=== PATIENT | female | born 1950 | race Caucasian/White ===

== ENCOUNTER → 2017-10-13 12:12 | Outpatient (CLI) | payer MEDICARE, SELFPAY | PROVIDERS: Family Provider Family Medicine; PCP Family Medicine; Visit Provider Family Medicine | DX: R30.0 Dysuria (principal) | CPT/HCPCS: 87086; 87088 ==

== ENCOUNTER 2018-04-10 19:45 | Inpatient (IN) | payer MEDICARE, MEDICAID, SELFPAY ==
[2018-04-10 19:46] VITALS: BP 158/91; PULSE 88; RESP 20; TEMP 36.7; O2SAT 98; BMI 27.0
--- NOTE | 2018-04-10 20:25 | ED.VISSUMM ---
- ER Visit Summary Date of Service: 04/10/18 Chief Complaint: Right facial redness History of Present Illness: The patient is a 67 F presenting with right facial redness. This started this morning. It has been worsening throughout the day. Denies fever. She denies pain. Denies injury. Denies vision changes. Her caregivers were concerned and brought her to the ER. She denies other complaints. Physical Examination: Vitals are stable. Patient is afebrile. Alert no acute distress. HEENT exam diffuse right facial redness and swelling. No area of fluctuance. Neck is supple. Lungs are clear and equal bilaterally. Heart is regular rate and rhythm. Abdomen is soft nontender nondistended. Extremities are unremarkable. Skin is warm and dry. No focal neurologic deficit. Remainder of exam is unremarkable. Emergency Department Course and Treatment: CBC shows a normal white count, hemoglobin 11.0, platelet 112. Glucose 139, BUN 24. Lactic acid 2.1. Blood cultures were sent. She is given Ancef IV. Discussed with the hospitalist for admission. Disposition: Admission Impression: Facial cellulitis This note was generated with [employer] dictation software. It may contain incorrect words, spelling, and punctuation that were not noted in review of the chart prior to signing ED Disposition - Plan for ED Patient: Chief Complaint: Cellulitis Referrals: Everett Ruelas DO [Primary Care Provider] -
[2018-04-10 20:39] LABS: Absolute Lymphocyte Count 1.19 X10^3/ul (0.83-4.51); Absolute Neutrophil Count 6.4 X10^3/uL (2.0-7.7); Basophil# 0.01 X10^3/uL; Basophil% 0.1 % (0-1); Eosinophil# 0.18 X10^3/uL; Eosinophils% 2.1 % (0-5); Hematocrit 32.6 % (37-47); Lymphocyte # 1.19 X10^3/ul (4.0); Lymphocyte % 14.1 % (19-41); Mean Corp Hgb Conc 33.7 g/gl (32-36); Mean Corpuscular Hgb 35.7 pg (27.0-32.0); Mean Corpuscular Volume 105.8 fL (81-99); Mean Platelet Vol. 10.5 fl (6.2-12.0); Monocyte# 0.66 X10^3/uL; Monocyte% 7.8 % (0-10); Neutrophil # 6.36 X10^3/uL (2.7-7.7); Neutrophil % 75.7 % (47-70); Platelet Count 112 K/mm3 (150-450); RBC Distribution Width CV 13.9 % (11.6-14.6); RBC Distribution Width SD 51.8 fl (35.1-43.9); Red Blood Count 3.08 M/mm3 (4.2-5.4); White Blood Count 8.4 K/mm3 (4.4-11.0)
[2018-04-10 20:41] LABS: POSITIVE COUNT NO; POSITIVE DIFFERENTIAL NO; POSITIVE MORPHOLOGY NO
[2018-04-10 20:54] LABS: BUN 24 mg/dL (7-18); Creatinine, Serum 0.81 mg/dL (0.55-1.02); Estimated Creatinine Clearance 59.79 ml/min; Glucose 129 mg/dL (74-106)
[2018-04-10 20:55] LABS: Anion Gap 7 (5-15); BUN/Creat Ratio 29.7 RATIO (10-20); Calcium,Total 8.6 mg/dL (8.5-10.1); Chloride 106 mmol/L (98-107); EST Glomerular Filtration Rate 76 mL/min (>60); Est Glom Filt Rate - Afr Amer 92 mL/min (>60); Potassium 4.6 mmol/L (3.5-5.1); Sodium Level 140 mmol/L (136-145)
[2018-04-10] MEDS: Cefazolin 1 GM/50 ML BAG IV (21:30)
[2018-04-10 21:31] VITALS: PULSE 81; RESP 16; O2SAT 97
[2018-04-10 21:32] LABS: Lactic Acid 2.1 mmol/L (0.4-2.0)
--- NOTE | 2018-04-10 21:37 | HP.PCM_ITS ---
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 tovar yearly came to ER with facial swelling and redness on right side. Patient has 24/7 caregiver and was noticed in this afternoon by her. Patient is verbal, communicative and understand simple things and and feeds herself. patient denies fever chills, headache, shortness of breath, dyspnea, dysphonia, dysphagia or change in vision, diplopia or loss of field of vision. [] In ED, vitals were stable with no fever. Basic labs did not show leukocytosis but lactic acid 2.1. Glucose 129 although she has history of diabetes mellitus. BUN 24 but normal creatinine Past Medical History Past Medical History (Chronic Problems): Chronic Problems (Last Reviewed 11/16/17 @ 10:54 by Doyle Tovar MD) Nonrheumatic mitral valve regurgitation (Chronic) Nonrheumatic aortic (valve) insufficiency (Chronic) Nonrheumatic mitral (valve) prolapse (Chronic) Bundle branch block, left hemiblock (Chronic) LBBB (left bundle branch block) (Chronic) Hyperlipidemia (Chronic) Medical History: Medical History (Last Reviewed 11/16/17 @ 10:54 by Doyle Tovar MD) Nonrheumatic mitral valve regurgitation (Acute) I34.0 Nonrheumatic aortic (valve) insufficiency (Acute) I35.1 Nonrheumatic mitral (valve) prolapse (Chronic) I34.1 Bundle branch block, left hemiblock (Chronic) I44.60 LBBB (left bundle branch block) (Chronic) I44.7 Hyperlipidemia (Chronic) E78.5 Developmental disability F89 Multinodular goiter E04.2 Seizure disorder G40.909 Allergies No Known Allergies Allergy (Unverified 04/10/18 19:49) Home Medications: Ambulatory Orders Medication Instructions Recorded aspirin 81 mg tablet,delayed 81 mg PO QDAY 11/15/17 release metoprolol tartrate 25 mg tablet 12.5 mg PO BID tab 11/15/17 ramipril 2.5 mg tablet 2.5 mg PO QDAY 11/15/17 spironolactone 25 mg tablet 25 mg PO QDAY 11/15/17 phenytoin sodium extended 100 mg 100 mg PO BID cap 11/16/17 capsule sodium chloride 0.65 % nasal spray 2 spray INTRANASAL DAILY 11/16/17 aerosol sodium fluoride 1.1 % dental gel 1 applic DENTAL QHS 11/16/17 Levothyroxine [Synthroid] 150 mcg PO DAILY 04/10/18 Surgical History: Surgical History (Last Reviewed 11/16/17 @ 10:54 by Doyle Tovar MD) History of foot surgery Z98.890 History of thyroidectomy E89.0 Smoking Status: Never smoker - *Family History Paternal Family History: Family History (Last Reviewed 11/16/17 @ 10:54 by Doyle Tovar MD) Father TIA (transient ischemic attack) History Items: No pertinent history Review of Systems Constitutional: Denies: Chills, Fever, Weight Change Eyes: Denies: Blurred vision, Conjunctivae Inflammation, Double vision HEENT: Reports: Nasal Congestion - Chronic. Denies: Head Aches, Sinus Congestion, Sinus Drainage Cardiovascular: Denies: Chest Pain, Chest Pressure, Palpitations Respiratory: Denies: Cough, Shortness of Breath, Shortness of breath at rest, Sputum production Gastrointestinal: Denies: Abdominal Pain, Constipation, Diarrhea, Hematemesis, Hematochezia, Nausea, Melena, Vomiting Genitourinary: Denies: Dysuria, Frequency, Hematuria Musculoskeletal: Denies: Joint Pain, Joint Tenderness Skin: Reports: Rash, Skin Changes. Denies: Wounds Neurological: Denies: Numbness, Tingling, Focal weakness Psychiatric: Denies: Anxiety, Depression, Homicidal Ideations, Suicidal Ideations Hematologic/ Lymphatic: Denies: Easy Bruising, Easy Bleeding VTE Information - Inpt Only VTE Present on Admission: No VTE Mechan Device Prophylaxis: None VTE Pharm Prophylaxis ordered?: Yes Patient Problems: Active and Suspected Problems (Last Reviewed 11/16/17 @ 10:54 by Doyle Tovar MD) facial Erysipelas (Acute) - Physical Exam General: Alert, Oriented x3, Cooperative HEENT: Atraumatic, PERRLA, EOMI, - - Microcephaly with micrognathia Oral: - - No tongue or soft palate or posterior pharyngeal mucus swelling. Neck: Supple, No JVD, Negative Carotid Bruits, - - A small patch of erythema present posteriorly over left side of neck. Small superficial abrasion present on the submitted of erythematous patch. No discharge Lungs: Clear to auscultation, Normal air movement, No rhonchi, No wheeze, No rales Cardiovascular: Regular rate, No murmurs Abdomen: Bowel Sounds Present, Soft, Non Tender Extremities: No edema, Capillary Refill Less than 3 Seconds Skin: Rash Present - erythematous rash present over right side of face involving the right lower lid. Mild induration present with mild tenderness. Musculoskeletal: No Tenderness to Palpation of Joints or Extremities Neurological: Cranial nerves II-XII grossly intact, Deep Tendon Reflexes 2+/4 and Symmetrical, - - Mild no acute Psych/Mental Status: Normal Affect, Appropriate Vital Signs Temp Pulse Resp BP Pulse Ox 98.0 F 88 20 H 158/91 H 98 04/10/18 19:46 04/10/18 19:46 04/10/18 19:46 04/10/18 19:46 04/10/18 19:46 Oxygen Delivery Method Room Air Weight: 157 lb 10.088 oz Body Mass Index (BMI) 27.0 Laboratory Tests Past 24 Hrs 04/10/18 04/10/18 04/10/18 20:20 20:20 20:20 WBC 8.4 RBC 3.08 L Hgb 11.0 L Hct 32.6 L MCV 105.8 H MCH 35.7 H MCHC 33.7 RDW 13.9 RDW Differential 51.8 H Plt Count 112 L MPV 10.5 Immature Gran % (Auto) 0.200 Neut % (Auto) 75.7 H Lymph % (Auto) 14.1 L [place] % (Auto) 7.8 Eos % (Auto) 2.1 Baso % (Auto) 0.1 Absolute Neuts (auto) 6.4 Absolute Lymphs (auto) 1.19 Total Counted Not Reportable Sodium 140 Potassium 4.6 Chloride 106 Carbon Dioxide 27.0 Anion Gap 7 BUN 24 H Creatinine 0.81 Estim Creat Clear Calc 59.79 Est GFR (MDRD) Af Amer 92 Est GFR (MDRD) Non-Af 76 BUN/Creatinine Ratio 29.7 H Glucose 129 H Lactic Acid Pending Calcium 8.6 Assessment/Plan All Active Problems (Last Reviewed 11/16/17 @ 10:54 by Doyle Tovar MD) facial Erysipelas (Acute) The patient is a 67 year old F with 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 tovar yearly came to ER with facial swelling and redness on right side. Patient has 24/7 caregiver and was noticed in this afternoon by her. Patient is verbal, communicative and understand simple things and and feeds herself. patient denies fever chills, headache, shortness of breath, dyspnea, dysphonia, dysphagia or change in vision, diplopia or loss of field of vision. [] In ED, vitals were stable with no fever. Basic labs did not show leukocytosis but lactic acid 2.1. Glucose 129 although she has history of diabetes mellitus. BUN 24 but normal creatinine 1. Severe sepsis, LA 2.1 due to right-sided facial erysipelas, exact precipitating factor unclear, most probably secondary to Streptococcus: Patient is being admitted on regular MedSurg floor. Blood culture x2 ordered by ER physician. Started on IV cefazolin and will continue it. IV clindamycin 600 mg every 8 hourly total 3 dosages ordered. MRSA nasal screen. Follow-up rash its extent clinically. ESR ordered. Mild hyperglycemia, glucose 129: A1c ordered for tomorrow a.m. 2. Developmental disability: Microcephaly with micrognathia associated with seizure disorder: Continue home medication of phenytoin. 3. Cardiac conditions: Mild chronic systolic heart failure, mild mitral valve prolapse with MR, bundle branch block: Patient recently saw Dr. tovar in office in October 2017. Office follow-up note reviewed. Continue metoprolol, ramipril and baby aspirin. Continue spironolactone. Patient had echo in November 2016 which shows mild global left ventricular systolic dysfunction, EF 47%. No regional wall motion abnormality. Mild to moderate eccentric MR, mild eccentric AR. Left atrium mildly enlarged. Normal right atrium. 4. Hypothyroidism with mild chronic pedal edema: Patient is on Synthroid. TSH and free T4 ordered. 5. Hypertension: On low-dose ramipril. 6. DVT prophylaxis: On Lovenox 40 mg subcu daily. This note was generated with [employer] dictation software. Every effort was made to ensure accuracy, however computerized take out waiter mistakes may persist. Laboratory Results 04/10/18 20:20: WBC 8.4, RBC 3.08 L, Hgb 11.0 L, Hct 32.6 L, MCV 105.8 H, MCH 35.7 H, MCHC 33.7, RDW 13.9, RDW Differential 51.8 H, Plt Count 112 L, MPV 10.5, Immature Gran % (Auto) 0.200, Neut % (Auto) 75.7 H, Lymph % (Auto) 14.1 L, [place] % (Auto) 7.8, Eos % (Auto) 2.1, Baso % (Auto) 0.1, Absolute Neuts (auto) 6.4, Absolute Lymphs (auto) 1.19, Total Counted Not Reportable 04/10/18 20:20: Sodium 140, Potassium 4.6, Chloride 106, Carbon Dioxide 27.0, Anion Gap 7, BUN 24 H, Creatinine 0.81, Estim Creat Clear Calc 59.79, Est GFR (MDRD) Af Amer 92, Est GFR (MDRD) Non-Af 76, BUN/Creatinine Ratio 29.7 H, Glucose 129 H, Calcium 8.6 04/10/18 20:20: Lactic Acid 2.1 H Code Visit Inpatient E&M: 68050 Init Hosp L3
[2018-04-10 22:05] VITALS: BMI 27.0; BMI 27.1
--- NOTE | 2018-04-10 22:12 | NURSING ---
Lis from [facility] helped with pt's admit.
[2018-04-10 22:57] VITALS: BP 145/69; PULSE 67; RESP 18; TEMP 36.9; O2SAT 96
[2018-04-10] MEDS: 0.9% Normal Saline 1,000 ML 100 ML IV (23:03)
[2018-04-10] MEDS: Phenytoin Na 100 MG Capsule PO (23:03)
[2018-04-10 23:12] LABS: Erythrocyte Sedimentation Rate 27 mm/hr (0-30)
[2018-04-10 23:13] VITALS: PULSE 67
[2018-04-10] MEDS: Metoprolol Tartrate 25 MG Tablet 12.5 MG PO (23:13)
[2018-04-11 00:32] LABS: Reflex Lactate? Y
[2018-04-11 01:37] LABS: Lactic Acid 1.1 mmol/L (0.4-2.0)
[2018-04-11 03:45] VITALS: BP 120/56; PULSE 79; RESP 16; TEMP 36.3; O2SAT 96
[2018-04-11 05:31] LABS: M R Staph aureus DNA By PCR Negative (Negative); Probe Check PASS; Specimen Processing Control PASS; Staph aureus DNA By PCR NEGATIVE (Negative)
[2018-04-11 05:36] LABS: Absolute Lymphocyte Count 0.78 X10^3/ul (0.83-4.51); Basophil# 0.01 X10^3/uL; Basophil% 0.2 % (0-1); Eosinophil# 0.13 X10^3/uL; Eosinophils% 3.1 % (0-5); Hematocrit 28.7 % (37-47); Hemoglobin 9.4 g/dl (12.0-15.0); Lymphocyte # 0.78 X10^3/ul (4.0); Lymphocyte % 18.4 % (19-41); Mean Corp Hgb Conc 32.8 g/gl (32-36); Mean Corpuscular Hgb 34.6 pg (27.0-32.0); Mean Corpuscular Volume 105.5 fL (81-99); Mean Platelet Vol. 9.7 fl (6.2-12.0); Monocyte# 0.32 X10^3/uL; Monocyte% 7.5 % (0-10); Neutrophil % 70.6 % (47-70); Platelet Count 96 K/mm3 (150-450); RBC Distribution Width CV 13.6 % (11.6-14.6); RBC Distribution Width SD 50.1 fl (35.1-43.9); Red Blood Count 2.72 M/mm3 (4.2-5.4); White Blood Count 4.3 K/mm3 (4.4-11.0)
[2018-04-11] MEDS: Levothyroxine 150 MCG Tablet PO (05:39)
[2018-04-11 06:01] LABS: T4 Free Direct 1.17 ng/dL (0.76-1.46); Thyroid Stim Hormone (TSH) 0.32 uIU/mL (0.358-3.74)
[2018-04-11 06:05] LABS: POSITIVE COUNT NO; POSITIVE DIFFERENTIAL NO; POSITIVE MORPHOLOGY NO
[2018-04-11] MEDS: Cefazolin 1 GM/50 ML BAG IV (06:39)
[2018-04-11 07:51] VITALS: BP 132/69; PULSE 76; RESP 18; TEMP 37; O2SAT 94
[2018-04-11] MEDS: Spironolactone 25 MG Tablet PO (07:58)
[2018-04-11] MEDS: Polyethylene Glycol 3350 17 GM PACKET PO (07:58)
[2018-04-11] MEDS: Sodium Chloride 0.65% 1 SPRAY SPRAY.BTL 2 SPRAY NASAL (07:58)
[2018-04-11] MEDS: Aspirin E.C. 81 MG Tablet PO (07:58)
[2018-04-11] MEDS: Ramipril 2.5 MG Capsule PO (07:58)
[2018-04-11] MEDS: Phenytoin Na 100 MG Capsule PO ×2 (07:58→21:04)
[2018-04-11 08:02] VITALS: PULSE 76
[2018-04-11] MEDS: Metoprolol Tartrate 25 MG Tablet 12.5 MG PO ×2 (08:02→21:04)
[2018-04-11 09:17] LABS: Hemoglobin A1c 4.6 % (4.2-6.3)
[2018-04-11] MEDS: 0.9% Normal Saline 1,000 ML 100 ML IV ×2 (09:43→21:03)
--- NOTE | 2018-04-11 09:48 | PCM.PN.HOSP ---
Patient Problems: Active and Suspected Problems (Last Reviewed 11/16/17 @ 10:54 by Doyle Zuniga MD) facial Erysipelas (Acute) Subjective: Patient seen and examined. She was admitted yesterday with a complaint of right-sided facial swelling, redness and pain. She is being managed for cellulitis of the right face and periorbital area. Patient feels well today and has no complaints. She denies any fever or chills, cough or chest pain grade the 30th of breath and reactive will be completed. 12 point Review systems otherwise negative. According to her swelling is improved slightly. Vitals/I&O's: Vital Signs Temp Pulse Resp BP Pulse Ox 98.6 F 76 18 132/69 H 94 04/11/18 07:51 04/11/18 08:02 04/11/18 07:51 04/11/18 07:51 04/11/18 07:51 Oxygen Delivery Method Room Air Weight: 157 lb 10.088 oz Body Mass Index (BMI) 27.0 Intake and Output for Last 24 Hours 04/09/18 04/10/18 04/11/18 23:59 23:59 23:59 Intake Total 1008 / 1008 Output Total 300 / 300 Balance 708 / 708 General: Alert, Oriented x3, Cooperative, No apparent distress HEENT: Atraumatic, PERRLA, EOMI, Normocephalic, - - has riht periorbital erythematous swelling, and right sided erythematous facial swelling, with mild tenerness and differential warmth. Oral: Moist Mucosa Neck: Supple, No JVD, Negative Carotid Bruits Lungs: Clear to auscultation, Normal air movement Cardiovascular: Regular rate, Regular Rhythm, Normal S1, Normal S2, No murmurs Abdomen: Bowel Sounds Present Extremities: No clubbing, No cyanosis, No edema, Capillary Refill Less than 3 Seconds Skin: No rashes, No breakdown, - - described as under HEENT Musculoskeletal: No Tenderness to Palpation of Joints or Extremities Lymphatic: No Cervical, Supraclavicular, or Inguinal Adenopathy Neurological: Cranial nerves II-XII grossly intact Psych/Mental Status: Normal Affect, Appropriate, Alert and oriented to time, place, person, mood and affect Laboratory Results 04/10/18 20:20: WBC 8.4, RBC 3.08 L, Hgb 11.0 L, Hct 32.6 L, MCV 105.8 H, MCH 35.7 H, MCHC 33.7, RDW 13.9, RDW Differential 51.8 H, Plt Count 112 L, MPV 10.5, Immature Gran % (Auto) 0.200, Neut % (Auto) 75.7 H, Lymph % (Auto) 14.1 L, [place] % (Auto) 7.8, Eos % (Auto) 2.1, Baso % (Auto) 0.1, Absolute Neuts (auto) 6.4, Absolute Lymphs (auto) 1.19, Total Counted Not Reportable 04/10/18 20:20: Sodium 140, Potassium 4.6, Chloride 106, Carbon Dioxide 27.0, Anion Gap 7, BUN 24 H, Creatinine 0.81, Estim Creat Clear Calc 59.79, Est GFR (MDRD) Af Amer 92, Est GFR (MDRD) Non-Af 76, BUN/Creatinine Ratio 29.7 H, Glucose 129 H, Calcium 8.6 04/10/18 20:20: Lactic Acid 2.1 H 04/10/18 20:20: ESR 27 04/11/18 00:49: Lactic Acid 1.1 04/11/18 03:30: MRSA (PCR) Negative 04/11/18 03:30: S.aureus Protein A PCR NEGATIVE, MRSA (PCR) Negative 04/11/18 05:18: WBC 4.3 L, RBC 2.72 L, Hgb 9.4 L, Hct 28.7 L, MCV 105.5 H, MCH 34.6 H, MCHC 32.8, RDW 13.6, RDW Differential 50.1 H, Plt Count 96 L, MPV 9.7, Immature Gran % (Auto) 0.200, Neut % (Auto) 70.6 H, Lymph % (Auto) 18.4 L, [place] % (Auto) 7.5, Eos % (Auto) 3.1, Baso % (Auto) 0.2, Absolute Neuts (auto) 3.0, Absolute Lymphs (auto) 0.78 L, Total Counted Not Reportable 04/11/18 05:18: TSH 0.32 L, Free T4 1.17 04/11/18 05:18: Hemoglobin A1c 4.6 Current Medications Acetaminophen (Tylenol) 650 mg PO Q6H PRN PRN PRN Reason: Mild Pain (scale 0-3)/T>100.7 Al Hydroxide/Mg Hydroxide (Mylanta Ii) 30 ml PO Q6H PRN PRN PRN Reason: Gastric Burning Aspirin (Ecotrin) 81 mg PO DAILYCM [facility] Last Admin: 04/11/18 07:58 Dose: 81 mg Bisacodyl (Dulcolax) 10 mg RECTAL DAILY PRN PRN PRN Reason: Constipation Docusate Sodium (Colace) 200 mg PO BID PRN PRN PRN Reason: Constipation Sodium Chloride () 1,000 mls @ 100 mls/hr IV .Q10H [facility] Last Admin: 04/11/18 09:43 Dose: 100 mls/hr Cefazolin Sodium () 1 gm in 50 mls @ 150 mls/hr IV Q8 [facility] Last Admin: 04/11/18 06:39 Dose: 150 mls/hr Clindamycin Phosphate 600 mg/ (Dextrose) 54 mls @ 100 mls/hr IV Q8 [facility] Stop: 04/11/18 14:33 Last Admin: 04/11/18 05:38 Dose: 100 mls/hr Influenza Virus Vaccine Quadrival (Fluarix/Fluzone) 0.5 ml IM .ONCE ONE Stop: 04/11/18 10:01 Lactobacillus Acidophilus (Acidophilus) 1 tablet PO TID [facility] Last Admin: 04/11/18 06:40 Dose: 1 tablet Levothyroxine Sodium (Synthroid) 150 mcg PO DAILY@0600 [facility] Last Admin: 04/11/18 05:39 Dose: 150 mcg Metoprolol Tartrate (Lopressor (Beta Renetta)) 12.5 mg PO BID [facility] Last Admin: 04/11/18 08:02 Dose: 12.5 mg Morphine Sulfate () 1 - 2 mg IV Q4H PRN PRN PRN Reason: SEVERE PAIN (6-10/10) Ondansetron HCl (Zofran) 4 mg IV Q6H PRN PRN PRN Reason: Nausea Oxycodone HCl (Oxyir) 5 mg PO Q4H PRN PRN PRN Reason: Moderate Pain (pain scale 4-5) Phenytoin Sodium (Dilantin) 100 mg PO BID [facility] Last Admin: 04/11/18 07:58 Dose: 100 mg Polyethylene Glycol (Miralax) 17 gm PO DAILY [facility] Last Admin: 04/11/18 07:58 Dose: 17 gm Ramipril (Altace) 2.5 mg PO DAILY [facility] Last Admin: 04/11/18 07:58 Dose: 2.5 mg Sodium Chloride ([place] Nasal [place]) 2 spray NASAL DAILY [facility] Last Admin: 04/11/18 07:58 Dose: 2 spray Sodium Chloride () 5 - 30 ml IV UD PRN PRN Reason: SALINE FLUSH Spironolactone (Aldactone) 25 mg PO DAILY [facility] Last Admin: 04/11/18 07:58 Dose: 25 mg Zolpidem Tartrate (Ambien (Generic)) 5 mg PO QHS PRN PRN PRN Reason: INSOMNIA Medical Necessity - Tobacco Use Smoking Status: Never smoker Assessment/Plan All Active Problems (Last Reviewed 11/16/17 @ 10:54 by Doyle Zuniga MD) facial Erysipelas (Acute) 1. Right facial and periorbital cellulitis had SIRS criteria 1/4 on admissoin (resp rate of 20); otherwise she still has erythematous swelling and tenderness over right and right face. Mild frontal wound. Precipitating factor is unclear. She does have poor dentition so this may have contributed to it. Blood cultures pending. On IV clindamycin and cefazolin. will dc cefazolin and continue IV clindamycin as it covers MRSA and MSSA also has no leucocytosis adjust as per blood cultures and sensitivities consult ID 2. Mildl hyperglycemia: resolved. A1C s 4.6. Will monitor 3/ Microcephaly with MRDD: stable. 4. Seizure disorder: on phenytoin 5. Chronic systolic heart failure: EF of 47%. On metoprolol, ramipril and baby aspirin as well as spironolactone. 6/ Hypothyroidism: TSH was 0.32 on dmission; free T4 is 1.17. Is therefore more of a subclinical hypothyroidism picture. Continue synthroid 7. Hypertension: controlled for age. On ramipril, metoprolol and spironolactone 8. History of mitral valve prolapse: stable DVT prophylaxis: lovenox Code Visit Inpatient E&M: 02307 [facility] Hosp L3
--- NOTE | 2018-04-11 09:52 | PN_ITS ---
Patient Problems: Active and Suspected Problems (Last Reviewed 11/16/17 @ 10:54 by Doyle Zuniga MD) facial Erysipelas (Acute) Subjective: Patient seen and examined. She was admitted yesterday with a complaint of right-sided facial swelling, redness and pain. She is being managed for cellulitis of the right face and periorbital area. Patient feels well today and has no complaints. She denies any fever or chills, cough or chest pain grade the 30th of breath and reactive will be completed. 12 point Review systems otherwise negative. According to her swelling is improved slightly. Vitals/I&O's: Vital Signs Temp Pulse Resp BP Pulse Ox 98.6 F 76 18 132/69 H 94 04/11/18 07:51 04/11/18 08:02 04/11/18 07:51 04/11/18 07:51 04/11/18 07:51 Oxygen Delivery Method Room Air Weight: 157 lb 10.088 oz Body Mass Index (BMI) 27.0 Intake and Output for Last 24 Hours 04/09/18 04/10/18 04/11/18 23:59 23:59 23:59 Intake Total 1008 / 1008 Output Total 300 / 300 Balance 708 / 708 General: Alert, Oriented x3, Cooperative, No apparent distress HEENT: Atraumatic, PERRLA, EOMI, Normocephalic, - - has riht periorbital erythematous swelling, and right sided erythematous facial swelling, with mild tenerness and differential warmth. Oral: Moist Mucosa Neck: Supple, No JVD, Negative Carotid Bruits Lungs: Clear to auscultation, Normal air movement Cardiovascular: Regular rate, Regular Rhythm, Normal S1, Normal S2, No murmurs Abdomen: Bowel Sounds Present Extremities: No clubbing, No cyanosis, No edema, Capillary Refill Less than 3 Seconds Skin: No rashes, No breakdown, - - described as under HEENT Musculoskeletal: No Tenderness to Palpation of Joints or Extremities Lymphatic: No Cervical, Supraclavicular, or Inguinal Adenopathy Neurological: Cranial nerves II-XII grossly intact Psych/Mental Status: Normal Affect, Appropriate, Alert and oriented to time, place, person, mood and affect Laboratory Results 04/10/18 20:20: WBC 8.4, RBC 3.08 L, Hgb 11.0 L, Hct 32.6 L, MCV 105.8 H, MCH 35.7 H, MCHC 33.7, RDW 13.9, RDW Differential 51.8 H, Plt Count 112 L, MPV 10.5, Immature Gran % (Auto) 0.200, Neut % (Auto) 75.7 H, Lymph % (Auto) 14.1 L, [place] % (Auto) 7.8, Eos % (Auto) 2.1, Baso % (Auto) 0.1, Absolute Neuts (auto) 6.4, Absolute Lymphs (auto) 1.19, Total Counted Not Reportable 04/10/18 20:20: Sodium 140, Potassium 4.6, Chloride 106, Carbon Dioxide 27.0, Anion Gap 7, BUN 24 H, Creatinine 0.81, Estim Creat Clear Calc 59.79, Est GFR (MDRD) Af Amer 92, Est GFR (MDRD) Non-Af 76, BUN/Creatinine Ratio 29.7 H, Glucose 129 H, Calcium 8.6 04/10/18 20:20: Lactic Acid 2.1 H 04/10/18 20:20: ESR 27 04/11/18 00:49: Lactic Acid 1.1 04/11/18 03:30: MRSA (PCR) Negative 04/11/18 03:30: S.aureus Protein A PCR NEGATIVE, MRSA (PCR) Negative 04/11/18 05:18: WBC 4.3 L, RBC 2.72 L, Hgb 9.4 L, Hct 28.7 L, MCV 105.5 H, MCH 34.6 H, MCHC 32.8, RDW 13.6, RDW Differential 50.1 H, Plt Count 96 L, MPV 9.7, Immature Gran % (Auto) 0.200, Neut % (Auto) 70.6 H, Lymph % (Auto) 18.4 L, [place] % (Auto) 7.5, Eos % (Auto) 3.1, Baso % (Auto) 0.2, Absolute Neuts (auto) 3.0, Absolute Lymphs (auto) 0.78 L, Total Counted Not Reportable 04/11/18 05:18: TSH 0.32 L, Free T4 1.17 04/11/18 05:18: Hemoglobin A1c 4.6 Current Medications Acetaminophen (Tylenol) 650 mg PO Q6H PRN PRN PRN Reason: Mild Pain (scale 0-3)/T>100.7 Al Hydroxide/Mg Hydroxide (Mylanta Ii) 30 ml PO Q6H PRN PRN PRN Reason: Gastric Burning Aspirin (Ecotrin) 81 mg PO DAILYCM [facility] Last Admin: 04/11/18 07:58 Dose: 81 mg Bisacodyl (Dulcolax) 10 mg RECTAL DAILY PRN PRN PRN Reason: Constipation Docusate Sodium (Colace) 200 mg PO BID PRN PRN PRN Reason: Constipation Sodium Chloride () 1,000 mls @ 100 mls/hr IV .Q10H [facility] Last Admin: 04/11/18 09:43 Dose: 100 mls/hr Cefazolin Sodium () 1 gm in 50 mls @ 150 mls/hr IV Q8 [facility] Last Admin: 04/11/18 06:39 Dose: 150 mls/hr Clindamycin Phosphate 600 mg/ (Dextrose) 54 mls @ 100 mls/hr IV Q8 [facility] Stop: 04/11/18 14:33 Last Admin: 04/11/18 05:38 Dose: 100 mls/hr Influenza Virus Vaccine Quadrival (Fluarix/Fluzone) 0.5 ml IM .ONCE ONE Stop: 04/11/18 10:01 Lactobacillus Acidophilus (Acidophilus) 1 tablet PO TID [facility] Last Admin: 04/11/18 06:40 Dose: 1 tablet Levothyroxine Sodium (Synthroid) 150 mcg PO DAILY@0600 [facility] Last Admin: 04/11/18 05:39 Dose: 150 mcg Metoprolol Tartrate (Lopressor (Beta Renetta)) 12.5 mg PO BID [facility] Last Admin: 04/11/18 08:02 Dose: 12.5 mg Morphine Sulfate () 1 - 2 mg IV Q4H PRN PRN PRN Reason: SEVERE PAIN (6-10/10) Ondansetron HCl (Zofran) 4 mg IV Q6H PRN PRN PRN Reason: Nausea Oxycodone HCl (Oxyir) 5 mg PO Q4H PRN PRN PRN Reason: Moderate Pain (pain scale 4-5) Phenytoin Sodium (Dilantin) 100 mg PO BID [facility] Last Admin: 04/11/18 07:58 Dose: 100 mg Polyethylene Glycol (Miralax) 17 gm PO DAILY [facility] Last Admin: 04/11/18 07:58 Dose: 17 gm Ramipril (Altace) 2.5 mg PO DAILY [facility] Last Admin: 04/11/18 07:58 Dose: 2.5 mg Sodium Chloride (Erhard Nasal [place]) 2 spray NASAL DAILY [facility] Last Admin: 04/11/18 07:58 Dose: 2 spray Sodium Chloride () 5 - 30 ml IV UD PRN PRN Reason: SALINE FLUSH Spironolactone (Aldactone) 25 mg PO DAILY [facility] Last Admin: 04/11/18 07:58 Dose: 25 mg Zolpidem Tartrate (Ambien (Generic)) 5 mg PO QHS PRN PRN PRN Reason: INSOMNIA Medical Necessity - Tobacco Use Smoking Status: Never smoker Assessment/Plan All Active Problems (Last Reviewed 11/16/17 @ 10:54 by Doyle Zuniga MD) facial Erysipelas (Acute) 1. Right facial and periorbital cellulitis * had SIRS criteria 1/4 on admissoin (resp rate of 20); otherwise she * still has erythematous swelling and tenderness over right and right face. Mild frontal wound. * Precipitating factor is unclear. She does have poor dentition so this may have contributed to it. * Blood cultures pending. On IV clindamycin and cefazolin. will dc cefazolin and continue IV clindamycin as it covers MRSA and MSSA also * has no leucocytosis * adjust as per blood cultures and sensitivities * consult ID * 2. Mildl hyperglycemia: resolved. A1C s 4.6. Will monitor 3/ Microcephaly with MRDD: stable. 4. Seizure disorder: on phenytoin 5. Chronic systolic heart failure: EF of 47%. On metoprolol, ramipril and baby aspirin as well as spironolactone. 6/ Hypothyroidism: TSH was 0.32 on dmission; free T4 is 1.17. Is therefore more of a subclinical hypothyroidism picture. Continue synthroid 7. Hypertension: controlled for age. On ramipril, metoprolol and spironolactone 8. History of mitral valve prolapse: stable DVT prophylaxis: lovenox Code Visit Inpatient E&M: 63186 Subs Hosp L3
--- NOTE | 2018-04-11 13:07 | CT_ITS ---
STUDY: CT PARANASAL SINUSES WITH CONTRAST REASON FOR EXAM: Female, 67 years old. Facial swelling. Right-sided cellulitis. RADIATION DOSAGE (If Supplied By Facility): CTDIvol = ( 29.38 ) mGy, DLP = ( 598.88 ) mGycm TECHNIQUE: The patient was scanned in a multi-detector CT scanner. High resolution transaxial imaging was performed following the intravenous administration of 75 ml of Isovue 370 contrast material. Sagittal and coronal images were reconstructed. Individualized dose optimization techniques were used for this CT. COMPARISON: None. FINDINGS: FRONTAL SINUSES: Normal development and aeration of the bilateral frontal sinuses without mucosal inflammatory disease. ETHMOIDAL SINUSES: Mucosal thickening of the ethmoid sinuses bilaterally. MAXILLARY SINUSES: Nodular mucosal thickening of both maxillary sinuses. SPHENOIDAL SINUSES: Mild degree of mucosal thickening of the sphenoid sinus. OMU: There is compromise of the ostiomeatal, bilaterally due to mucosal hypertrophy. MIDDLE TURBINATES: Normal bilateral middle turbinates without a cecy bullosa or paradoxical curvature. INFERIOR TURBINATES: Marked degree of hypertrophy of the right inferior turbinate. Moderate degree of thickening of the right middle turbinate. Polyposis should be ruled out. NASAL SEPTUM: Nasal septal deviation towards the left side of the midline. Normal anterior cranial fossa, dany homer and cribriform plate. Normal bilateral orbital contents. Normal nasopharynx without adenoidal pad hypertrophy, or a posterior nasopharyngeal retention cyst. There is evidence of a skin thickening of the right facial region with increased markings in the underlying subcutaneous fat. This is worse in the right periorbital region. This is suggestive of cellulitis. No focal abscess or cavitary lesion is seen. CT/Sinus/Facial Bone WITH Contras IMPRESSION: Sinusitis involving the ethmoid sinuses, maxillary sinus and sphenoid sinuses. Marked hypertrophy of the inferior turbinate of the right nasal fossa and moderate hypertrophy of the middle turbinate in the right nasal fossa. Skin thickening and soft tissue swelling overlying the right maxillary region worse overlying the right orbital region although no focal abscess collection is seen. Electronically Signed: Tim Jo MD at 14:49 EST Tel [phone], Service support ,
--- NOTE | 2018-04-11 13:13 | CON.PCM_ITS ---
Problem List (1) facial Erysipelas Status: Acute Reason for Consult: cellulitis Consulted by: Dr. Martinez History of Present Illness: The patient is a 67 year old F with microcephaly who presented from [facility] 04/10 with one day h/o R face swelling, redness, and clear/honey colored drainage. Denies pain, denies fever, no recent abx. Has prior h/o erysipelas. Came to ED, bcx sent, started on cefazolin and clinda. Denies any eye pain or vision changes. Full ROS neg except as noted above. Family at bedside provided additional history. - Medical History Past Medical History (Chronic Problems): Chronic Problems (Last Reviewed 11/16/17 @ 10:54 by Doyle Zuniga MD) Nonrheumatic mitral valve regurgitation (Chronic) Nonrheumatic aortic (valve) insufficiency (Chronic) Nonrheumatic mitral (valve) prolapse (Chronic) Bundle branch block, left hemiblock (Chronic) LBBB (left bundle branch block) (Chronic) Hyperlipidemia (Chronic) Allergies/Adverse Reactions: Allergies No Known Allergies Allergy (Unverified 04/10/18 19:49) Home Medications: Ambulatory Orders Medication Instructions Recorded aspirin 81 mg tablet,delayed 81 mg PO QDAY 11/15/17 release metoprolol tartrate 25 mg tablet 12.5 mg PO BID tab 11/15/17 ramipril 2.5 mg tablet 2.5 mg PO QDAY 11/15/17 spironolactone 25 mg tablet 25 mg PO QDAY 11/15/17 phenytoin sodium extended 100 mg 100 mg PO BID cap 11/16/17 capsule sodium chloride 0.65 % nasal spray 2 spray INTRANASAL DAILY 11/16/17 aerosol sodium fluoride 1.1 % dental gel 1 applic DENTAL QHS 11/16/17 Levothyroxine [Synthroid] 150 mcg PO DAILY 04/10/18 - Social History SMOKING STATUS:: Never smoker Vital Signs Temp Pulse Resp BP Pulse Ox 98.6 F 76 18 132/69 H 94 04/11/18 07:51 04/11/18 08:02 04/11/18 07:51 04/11/18 07:51 04/11/18 07:51 Oxygen Delivery Method Room Air Weight: 71.5 kg Body Mass Index (BMI) 27.0 Laboratory Tests Past 24 Hrs 1104/10/18 04/10/18 20:20 20:20 20:20 WBC 8.4 RBC 3.08 L Hgb 11.0 L Hct 32.6 L MCV 105.8 H MCH 35.7 H MCHC 33.7 RDW 13.9 RDW Differential 51.8 H Plt Count 112 L MPV 10.5 Immature Gran % (Auto) 0.200 Neut % (Auto) 75.7 H Lymph % (Auto) 14.1 L [place] % (Auto) 7.8 Eos % (Auto) 2.1 Baso % (Auto) 0.1 Absolute Neuts (auto) 6.4 Absolute Lymphs (auto) 1.19 Total Counted Not Reportable ESR Sodium 140 Potassium 4.6 Chloride 106 Carbon Dioxide 27.0 Anion Gap 7 BUN 24 H Creatinine 0.81 Estim Creat Clear Calc 59.79 Est GFR (MDRD) Af Amer 92 Est GFR (MDRD) Non-Af 76 BUN/Creatinine Ratio 29.7 H Glucose 129 H Hemoglobin A1c Lactic Acid 2.1 H Calcium 8.6 TSH Free T4 S.aureus Protein A PCR MRSA (PCR) 04/10/18 04/11/18 04/11/18 20:20 00:49 03:30 WBC RBC Hgb Hct MCV MCH MCHC RDW RDW Differential Plt Count MPV Immature Gran % (Auto) Neut % (Auto) Lymph % (Auto) [place] % (Auto) Eos % (Auto) Baso % (Auto) Absolute Neuts (auto) Absolute Lymphs (auto) Total Counted ESR 27 Sodium Potassium Chloride Carbon Dioxide Anion Gap BUN Creatinine Estim Creat Clear Calc Est GFR (MDRD) Af Amer Est GFR (MDRD) Non-Af BUN/Creatinine Ratio Glucose Hemoglobin A1c Lactic Acid 1.1 Calcium TSH Free T4 S.aureus Protein A PCR MRSA (PCR) Negative 04/11/18 04/11/18 04/11/18 03:30 05:18 05:18 WBC 4.3 L RBC 2.72 L Hgb 9.4 L Hct 28.7 L MCV 105.5 H MCH 34.6 H MCHC 32.8 RDW 13.6 RDW Differential 50.1 H Plt Count 96 L MPV 9.7 Immature Gran % (Auto) 0.200 Neut % (Auto) 70.6 H Lymph % (Auto) 18.4 L [place] % (Auto) 7.5 Eos % (Auto) 3.1 Baso % (Auto) 0.2 Absolute Neuts (auto) 3.0 Absolute Lymphs (auto) 0.78 L Total Counted Not Reportable ESR Sodium Potassium Chloride Carbon Dioxide Anion Gap BUN Creatinine Estim Creat Clear Calc Est GFR (MDRD) Af Amer Est GFR (MDRD) Non-Af BUN/Creatinine Ratio Glucose Hemoglobin A1c Lactic Acid Calcium TSH 0.32 L Free T4 1.17 S.aureus Protein A PCR NEGATIVE MRSA (PCR) Negative 04/11/18 05:18 WBC RBC Hgb Hct MCV MCH MCHC RDW RDW Differential Plt Count MPV Immature Gran % (Auto) Neut % (Auto) Lymph % (Auto) [place] % (Auto) Eos % (Auto) Baso % (Auto) Absolute Neuts (auto) Absolute Lymphs (auto) Total Counted ESR Sodium Potassium Chloride Carbon Dioxide Anion Gap BUN Creatinine Estim Creat Clear Calc Est GFR (MDRD) Af Amer Est GFR (MDRD) Non-Af BUN/Creatinine Ratio Glucose Hemoglobin A1c 4.6 Lactic Acid Calcium TSH Free T4 S.aureus Protein A PCR MRSA (PCR) - Other Studies Radiology: [] reviewed Other Studies: [] Route of nutrition/ use of supplements: [] Nutritional Intake: [] IV Site: [] Tolbert Catheter: [] - Physical Exam General: Alert, Cooperative, No apparent distress HEENT: Atraumatic, PERRLA, EOMI Neck: Supple Lungs: Clear to auscultation, Normal air movement Cardiovascular: Regular rate, Regular Rhythm Abdomen: Soft, Non Tender, Non-Distended Extremities: No edema Skin: - - R face with diffuse swelling, redness, and warmth extending from R periorbital region to neck. Some central honey colored crusting and drainage. IV Site: Peripheral, without redness Musculoskeletal: No Tenderness to Palpation of Joints or Extremities Neurological: Cranial nerves II-XII grossly intact - Assessment/Plan Antibiotics: [] Assessment/Plan: [] Active and Suspected Problems (Last Reviewed 11/16/17 @ 10:54 by Doyle Zuniga MD) facial Erysipelas (Acute) R sided. No pain with eye movement. No fever, normal wbc. Staph aureus pcr neg. On iv clinda. Will order CT of face to look for abscess or orbital involvement. Cont clinda for now. Will follow, thank you.
[2018-04-11 14:30] VITALS: BP 140/68; PULSE 76; RESP 18; TEMP 36.6; O2SAT 96
--- NOTE | 2018-04-11 15:56 | CASEMGMT ---
Social Work Note Pt is being listed as being from skilled nursing. BOOKER met with pt. Pt's caregiver Lis present in room. Lis confirms that pt is from [facility] and pt will return there at discharge. Lis states that once pt is medically cleared either she or pt's other caregiver Tyesha will be able to transport pt. BOOKER placed a call to pt's guardian Alex who also confirms that pt is from [facility] and pt will return there at discharge. Plan: Return to [facility] once medically cleared Dulce Starr [employer], [employer]EV[employer]IAL INSPECTOR
[2018-04-11 20:11] VITALS: BP 131/62; PULSE 75; RESP 17; TEMP 36.9; O2SAT 98
[2018-04-11 21:04] VITALS: BP 188/71; PULSE 71
[2018-04-12 02:31] VITALS: BP 153/83; PULSE 69; RESP 17; TEMP 36.6; O2SAT 98
[2018-04-12] MEDS: Levothyroxine 150 MCG Tablet PO (05:17)
[2018-04-12 05:52] LABS: Absolute Lymphocyte Count 0.82 X10^3/ul (0.83-4.51); Absolute Neutrophil Count 2.4 X10^3/uL (2.0-7.7); Eosinophil# 0.22 X10^3/uL; Hematocrit 29.3 % (37-47); Hemoglobin 9.7 g/dl (12.0-15.0); Lymphocyte # 0.82 X10^3/ul (4.0); Lymphocyte % 22.3 % (19-41); Mean Corp Hgb Conc 33.1 g/gl (32-36); Mean Corpuscular Hgb 34.9 pg (27.0-32.0); Mean Corpuscular Volume 105.4 fL (81-99); Monocyte# 0.28 X10^3/uL; Monocyte% 7.6 % (0-10); Neutrophil # 2.35 X10^3/uL (2.7-7.7); Neutrophil % 63.8 % (47-70); Platelet Count 93 K/mm3 (150-450); RBC Distribution Width CV 13.8 % (11.6-14.6); RBC Distribution Width SD 51.4 fl (35.1-43.9); Red Blood Count 2.78 M/mm3 (4.2-5.4); White Blood Count 3.7 K/mm3 (4.4-11.0)
[2018-04-12 05:54] LABS: POSITIVE COUNT NO; POSITIVE DIFFERENTIAL NO; POSITIVE MORPHOLOGY NO
[2018-04-12 06:04] LABS: Anion Gap 9 (5-15); BUN 15 mg/dL (7-18); BUN/Creat Ratio 28.3 RATIO (10-20); Calcium,Total 8.4 mg/dL (8.5-10.1); Chloride 111 mmol/L (98-107); Creatinine, Serum 0.53 mg/dL (0.55-1.02); EST Glomerular Filtration Rate 123 mL/min (>60); Est Glom Filt Rate - Afr Amer 149 mL/min (>60); Estimated Creatinine Clearance 91.38 ml/min; Glucose 90 mg/dL (74-106); Potassium 4.6 mmol/L (3.5-5.1); Sodium Level 145 mmol/L (136-145)
[2018-04-12] MEDS: 0.9% Normal Saline 1,000 ML 100 ML IV (07:13)
[2018-04-12] MEDS: Aspirin E.C. 81 MG Tablet PO (08:43)
[2018-04-12 09:00] VITALS: BP 146/61; PULSE 68; RESP 16; TEMP 36.3; O2SAT 97
[2018-04-12] MEDS: Metoprolol Tartrate 25 MG Tablet 12.5 MG PO (09:00)
[2018-04-12] MEDS: Spironolactone 25 MG Tablet PO (09:02)
[2018-04-12] MEDS: Phenytoin Na 100 MG Capsule PO (09:02)
[2018-04-12] MEDS: Polyethylene Glycol 3350 17 GM PACKET PO (09:02)
[2018-04-12] MEDS: Ramipril 2.5 MG Capsule PO (09:02)
[2018-04-12] MEDS: Sodium Chloride 0.65% 1 SPRAY SPRAY.BTL 2 SPRAY NASAL (09:03)
--- NOTE | 2018-04-12 10:26 | PCM.PN.ID ---
Patient Problems: Active and Suspected Problems (Last Reviewed 11/16/17 @ 10:54 by Doyle Zuniga MD) facial Erysipelas (Acute) Subjective: Feeling much better, face not sore, no fever. - Physical Exam General: Alert, Cooperative Lungs: Clear to auscultation, Normal air movement Cardiovascular: Regular rate, Regular Rhythm Abdomen: Soft, Non Tender, Non-Distended Skin: Rash Present - much improved L face redness and swelling. Vital Signs Temp Pulse Resp BP Pulse Ox 97.4 F L 68 16 146/61 H 97 04/12/18 09:00 04/12/18 09:00 04/12/18 09:00 04/12/18 09:00 04/12/18 09:00 Oxygen Delivery Method Room Air Weight: 71.5 kg Body Mass Index (BMI) 27.0 Intake and Output for Last 24 Hours 04/10/18 04/11/18 04/12/18 23:59 23:59 23:59 Intake Total 3610 / 3610 722 / 722 Output Total 700 / 700 1100 / 1100 Balance 2910 / 2910 -378 / -378 Laboratory Tests Past 24 Hrs 04/12/18 04/12/18 05:18 05:18 WBC 3.7 L RBC 2.78 L Hgb 9.7 L Hct 29.3 L MCV 105.4 H MCH 34.9 H MCHC 33.1 RDW 13.8 RDW Differential 51.4 H Plt Count 93 L MPV 10.0 Immature Gran % (Auto) 0.300 Neut % (Auto) 63.8 Lymph % (Auto) 22.3 [place] % (Auto) 7.6 Eos % (Auto) 6.0 H Baso % (Auto) 0.0 Absolute Neuts (auto) 2.4 Absolute Lymphs (auto) 0.82 L Total Counted Not Reportable Sodium 145 Potassium 4.6 Chloride 111 H Carbon Dioxide 25.0 Anion Gap 9 BUN 15 Creatinine 0.53 L Estim Creat Clear Calc 91.38 Est GFR (MDRD) Af Amer 149 Est GFR (MDRD) Non-Af 123 BUN/Creatinine Ratio 28.3 H Glucose 90 Calcium 8.4 L Medical Necessity - Tobacco Use Smoking Status: Never smoker Route of nutrition/ use of supplements: [] Nutritional Intake: [] IV Site: [] Tolbert Catheter: [] - Assessment/Plan Antibiotics: [] Assessment/Plan: [] Active and Suspected Problems (Last Reviewed 11/16/17 @ 10:54 by Doyle Zuniga MD) facial Erysipelas (Acute) R sided. No pain with eye movement. No fever, normal wbc. Staph aureus pcr neg. On iv clinda. Much improved on exam today. CT with no abscess but sinusitis seen. Ok for d/c home on po clinda 450mg tid for 5 more days. Will follow
--- NOTE | 2018-04-12 11:09 | DCINST_ITS ---
- Discharge Diagnoses Current Active Problems: Current Active and Chronic Problems (Last Reviewed 11/16/17 @ 10:54 by Doyle Zuniga MD) facial Erysipelas (Acute) You will use the following diet at home:: Cardiac Your food should be the consistency of: Regular Your liquids should be the consistency of: Regular/Thin Discharge Activity: Return to Normal Activity Allergies/Adverse Reactions: Allergies No Known Allergies Allergy (Unverified 04/10/18 19:49) Medications to take at Discharge aspirin 81 mg tablet,delayed release 81 mg PO QDAY 11/15/17 metoprolol tartrate 25 mg tablet 12.5 mg PO BID tab 11/15/17 ramipril 2.5 mg tablet 2.5 mg PO QDAY 11/15/17 spironolactone 25 mg tablet 25 mg PO QDAY 11/15/17 phenytoin sodium extended 100 mg capsule 100 mg PO BID cap 11/16/17 sodium chloride 0.65 % nasal spray aerosol 2 spray INTRANASAL DAILY 11/16/17 sodium fluoride 1.1 % dental gel 1 applic DENTAL QHS 11/16/17 Levothyroxine [Synthroid] 150 mcg PO DAILY 04/10/18 Acetaminophen [Tylenol Tablet] 650 mg PO Q6H PRN PRN tablet 04/12/18 Clindamycin [Cleocin] 450 mg PO TID #15 capsule 04/12/18 The following prescriptions were given: Clindamycin [Cleocin] 450 mg PO TID #15 capsule Primary Care Physician: Everett Ruelas DO [Primary Care Provider] - Within 2 Weeks Test Results: Test results from this visit will be discussed in further detail at your follow- up appointment, if applicable. Proposed Discharge Date: 04/12/18
--- NOTE | 2018-04-12 11:09 | PCM.DC.SUM ---
Discharge Date and Diagnosis - Problem List Patient Problems: Active and Suspected Problems (Last Reviewed 11/16/17 @ 10:54 by Doyle Zuniga MD) Facial cellulitis (Acute) Date of Admission: 04/10/18 Date of Discharge: 04/12/18 - Primary Discharge Diagnosis Active and Suspected Problems (Last Reviewed 11/16/17 @ 10:54 by Doyle Zuniga MD) Facial cellulitis (Acute) facial Erysipelas (Acute) - Secondary Discharge Diagnosis Chronic Problems (Last Reviewed 11/16/17 @ 10:54 by Doyle Zuniga MD) Nonrheumatic mitral valve regurgitation (Chronic) Nonrheumatic aortic (valve) insufficiency (Chronic) Nonrheumatic mitral (valve) prolapse (Chronic) Bundle branch block, left hemiblock (Chronic) LBBB (left bundle branch block) (Chronic) Hyperlipidemia (Chronic) Hospital Course and Treatment Imaging Results: Clinical Impression(s) from Imaging Studies Facial/Sinus 04/11/18 13:07 IMPRESSION: Sinusitis involving the ethmoid sinuses, maxillary sinus and sphenoid sinuses. Marked hypertrophy of the inferior turbinate of the right nasal fossa and moderate hypertrophy of the middle turbinate in the right nasal fossa. Skin thickening and soft tissue swelling overlying the right maxillary region worse overlying the right orbital region although no focal abscess collection is seen. Electronically Signed: Tim Jo MD at 14:49 EST Tel [phone], Service support , Stu Landin MD--infectious disease Operations: None Procedures: None Summary of Care Provided: The patient is a 67 year old F presents with right facial cellulitis. Was started on cefazolin IV and clindamycin. Patient did have CT of sinuses showed sinusitis but no evidence of any abscess. Patient seen in consultation by infectious disease and today, the patient is appearing better. Plan is for the patient to go home with 5 more days of clindamycin. Patient states that swelling around her right eye is improved. Patient will return to her long term. [] Patient Problems: Active and Suspected Problems (Last Reviewed 11/16/17 @ 10:54 by Doyle Zuniga MD) Facial cellulitis (Acute) - Physical Exam General: Alert, No apparent distress HEENT: Atraumatic, Normocephalic, - - erythema on right cheeck down under chin. no fluctuance. no induration. Oral: Moist Mucosa, No Gingival or Mucosal Lesions/ Ulcerations Neck: No Nodes, Thyroid Normal Size and Texture Lungs: Clear to auscultation, Normal air movement, No rhonchi, No wheeze Cardiovascular: Regular rate, Regular Rhythm, Normal S1, Normal S2 Abdomen: Bowel Sounds Present, Soft, Non Tender, Non-Distended Vital Signs Temp Pulse Resp BP Pulse Ox 36.3 C L 68 16 146/61 H 97 04/12/18 09:00 04/12/18 09:00 04/12/18 09:00 04/12/18 09:00 04/12/18 09:00 Oxygen Delivery Method Room Air Weight: 71.5 kg Body Mass Index (BMI) 27.0 Intake and Output for Last 24 Hours 04/10/18 04/11/18 04/12/18 23:59 23:59 23:59 Intake Total 3610 / 3610 722 / 722 Output Total 700 / 700 1100 / 1100 Balance 2910 / 2910 -378 / -378 Laboratory Tests Past 24 Hrs 04/12/18 04/12/18 05:18 05:18 WBC 3.7 L RBC 2.78 L Hgb 9.7 L Hct 29.3 L MCV 105.4 H MCH 34.9 H MCHC 33.1 RDW 13.8 RDW Differential 51.4 H Plt Count 93 L MPV 10.0 Immature Gran % (Auto) 0.300 Neut % (Auto) 63.8 Lymph % (Auto) 22.3 [place] % (Auto) 7.6 Eos % (Auto) 6.0 H Baso % (Auto) 0.0 Absolute Neuts (auto) 2.4 Absolute Lymphs (auto) 0.82 L Total Counted Not Reportable Sodium 145 Potassium 4.6 Chloride 111 H Carbon Dioxide 25.0 Anion Gap 9 BUN 15 Creatinine 0.53 L Estim Creat Clear Calc 91.38 Est GFR (MDRD) Af Amer 149 Est GFR (MDRD) Non-Af 123 BUN/Creatinine Ratio 28.3 H Glucose 90 Calcium 8.4 L Discharge Diet: Low fat/ Low Cholesterol Discharge Activity: Return to Normal Activity Home Medications: Medications to take at Discharge aspirin 81 mg tablet,delayed release 81 mg PO QDAY 11/15/17 metoprolol tartrate 25 mg tablet 12.5 mg PO BID tab 11/15/17 ramipril 2.5 mg tablet 2.5 mg PO QDAY 11/15/17 spironolactone 25 mg tablet 25 mg PO QDAY 11/15/17 phenytoin sodium extended 100 mg capsule 100 mg PO BID cap 11/16/17 sodium chloride 0.65 % nasal spray aerosol 2 spray INTRANASAL DAILY 11/16/17 sodium fluoride 1.1 % dental gel 1 applic DENTAL QHS 11/16/17 Levothyroxine [Synthroid] 150 mcg PO DAILY 04/10/18 Acetaminophen [Tylenol Tablet] 650 mg PO Q6H PRN PRN tablet 04/12/18 Clindamycin [Cleocin] 450 mg PO TID #15 capsule 04/12/18 Following Prescrptions Were Given to Patient: Clindamycin [Cleocin] 450 mg PO TID #15 capsule Primary Care Physician: Everett Ruelas DO [Primary Care Provider] - Within 2 Weeks Disposition: Home Minutes spent on discharge:: 32 Patient Condition:: Good Medical Necessity - Tobacco Use Smoking Status: Never smoker Meaningful Use Info Meaningful Use Diagnoses (Choose all that apply): None applicable Code Visit Inpatient E&M: 19946 Disch Hosp
--- NOTE | 2018-04-12 12:27 | CASEMGMT ---
Social Work Note [facility] HONEY Bahena placed a call to pt's caregiver to transport pt. BOOKER placed a call to pt's guardian Alex and updated him that pt will be discharged today. Alex states understanding. Plan: Pt to discharge back to [facility] with pt's caregiver transporting Dulce Starr DREDGE BOAT ENGINEER, WOOD MILLING MACHINE TENDER
== END 2018-04-12 12:38 | disposition home or self-care (01) | DRG 603 ==
LOC: ED 20:10 → MS3 21:53
PROVIDERS: Student in an Organized Health Care Education/Training Program; Admitting Provider Internal Medicine; Emergency Provider Emergency Medicine; Family Provider Family Medicine; PCP Family Medicine
DX: A46 Erysipelas (principal); I50.22 Chronic systolic (congestive) heart failure; D61.818 Other pancytopenia; Q02 Microcephaly; M26.09 Other specified anomalies of jaw size; R73.9 Hyperglycemia, unspecified; I34.1 Nonrheumatic mitral (valve) prolapse; E03.9 Hypothyroidism, unspecified; I11.0 Hypertensive heart disease with heart failure; G40.909 Epilepsy, unspecified, not intractable, without status epilepticus; Z23 Encounter for immunization
CPT/HCPCS: 36415; 70487; 80048; 83036; 83605; 84439; 84443; 85025; 85652; 87040; 87640; 87641; 97802; 99282; J7030; J7050; Q9967; 90686; A4216

== ENCOUNTER 2018-04-16 10:14 | Emergency (ER) | payer MEDICARE, MEDICAID, SELFPAY ==
[2018-04-16 10:15] VITALS: BP 143/75; PULSE 77; RESP 16; TEMP 36.7; O2SAT 99; BMI 28.3
--- NOTE | 2018-04-16 10:43 | ED.DCSUM_ITS ---
- ER Visit Summary Date of Service: 04/16/18 Chief Complaint: [] Diarrhea for about 24 hours right facial infection on antibiotics for 3 days History of Present Illness: The patient is a 67 F [] she has history of microcephaly cardiac valve disorder herpes zoster involving her back last month she apparently suffered some type of unspecified right facial infection admitted to the hospital discharged on clindamycin change yesterday to Keflex by her primary care otherwise doing well at the facility she lives in except she has had copious diarrhea overnight, and there was a concern on the part of her caretakers that she had more upper and lower lid edema. To the right,. 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, she has no history of MRSA or other infection she has had no trauma to her face or body she has been eating and drinking well at the early where she lives she had breakfast this morning with no difficulty Physical Examination: [] 130/80, general, no distress resting comfortably HEENT is generally unremarkable, except the right face there is some very subtle edema to the upper and lower right lid the eye is uninvolved she complains of no eye symptoms or eye pain she indicates her vision is normal there is no signs of zoster to the face but there are also small scattered papules to the forehead into the cheek, her airways intact she does have what appears to be some element of microcephaly that is chronic The neck is supple no adenopathy Cardiovascular, regular rate and rhythm Lungs, clear bilateral Abdomen, soft nontender Extremities, no clubbing cyanosis or edema some scattered papules to her hand she has a contusion to the left fingers that are not tender with full range of motion her skin is otherwise unremarkable neurologically she is at her baseline Neurologic, awake alert answering questions appropriately moving all 4 extremities Test Results: [] Emergency Department Course and Treatment: [] The caretakers chief concern is the diarrhea second followed by the edema to the face she just switched from clindamycin to Keflex yesterday clinically she looks well she is in no distress screening labs are obtained IV fluids, there is no suggestion of periorbital cellulitis or trauma Treatment Plan: [] CT done the other day showed pansinusitis and sign of facial cellulitis but no signs of orbital process see that report The patient's labs are unremarkable she has had no diarrhea since she has been here we were unable to obtain stool for C. difficile because of that she is on the appropriate medication she is actually improving regarding her facial cellulitis issues have explained to the staff the manages her they should continue to manage her diarrhea with Kaopectate fluids and have her follow-up with her family physicians for further symptoms or changes Disposition: [] Home stable Impression: [] Improving right facial infection, pansinusitis, concern for diarrhea since onset of antibiotic therapy This note was generated with [employer] dictation software. It may contain incorrect words, spelling, and punctuation that were not noted in review of the chart prior to signing ED Disposition - Plan for ED Patient: Chief Complaint: Cellulitis Referrals: Everett Ruelas DO [Primary Care Provider] -
[2018-04-16 11:30] LABS: Absolute Lymphocyte Count 1.03 X10^3/ul (0.83-4.51); Absolute Neutrophil Count 5.7 X10^3/uL (2.0-7.7); Basophil# 0.02 X10^3/uL; Basophil% 0.3 % (0-1); Eosinophil# 0.22 X10^3/uL; Eosinophils% 2.9 % (0-5); Hematocrit 30.6 % (37-47); Hemoglobin 10.3 g/dl (12.0-15.0); Lymphocyte # 1.03 X10^3/ul (4.0); Lymphocyte % 13.5 % (19-41); Mean Corp Hgb Conc 33.7 g/gl (32-36); Mean Corpuscular Hgb 35.5 pg (27.0-32.0); Mean Corpuscular Volume 105.5 fL (81-99); Mean Platelet Vol. 9.7 fl (6.2-12.0); Monocyte# 0.66 X10^3/uL; Monocyte% 8.6 % (0-10); Neutrophil # 5.71 X10^3/uL (2.7-7.7); Neutrophil % 74.6 % (47-70); POSITIVE COUNT NO; POSITIVE DIFFERENTIAL NO; POSITIVE MORPHOLOGY NO; Platelet Count 87 K/mm3 (150-450); RBC Distribution Width CV 13.5 % (11.6-14.6); RBC Distribution Width SD 50.2 fl (35.1-43.9); White Blood Count 7.7 K/mm3 (4.4-11.0)
[2018-04-16 11:40] LABS: Anion Gap 5 (5-15); BUN 20 mg/dL (7-18); BUN/Creat Ratio 30.3 RATIO (10-20); Calcium,Total 8.3 mg/dL (8.5-10.1); Chloride 106 mmol/L (98-107); Creatinine, Serum 0.66 mg/dL (0.55-1.02); EST Glomerular Filtration Rate 96 mL/min (>60); Est Glom Filt Rate - Afr Amer 116 mL/min (>60); Estimated Creatinine Clearance 67.21 ml/min; Glucose 97 mg/dL (74-106); Potassium 4.1 mmol/L (3.5-5.1); Sodium Level 139 mmol/L (136-145)
--- NOTE | 2018-04-16 12:08 | ED.DEP ---
ED Disposition - Plan for ED Patient: Chief Complaint: Cellulitis Instructions: Discharge Instructions for Cellulitis, Treating Diarrhea Referrals: Everett Ruelas DO [Primary Care Provider] -
[2018-04-16 12:27] VITALS: BP 140/86; PULSE 82; RESP 16; O2SAT 99
== END 2018-04-16 12:27 | disposition home or self-care (01) ==
PROVIDERS: Emergency Provider Emergency Medicine; Family Provider Family Medicine; PCP Family Medicine
DX: L03.211 Cellulitis of face (principal); B96.89 Other specified bacterial agents as the cause of diseases classified elsewhere; J32.4 Chronic pansinusitis; R19.7 Diarrhea, unspecified; Q02 Microcephaly; Z79.82 Long term (current) use of aspirin; Z79.899 Other long term (current) drug therapy
CPT/HCPCS: 80048; 85025; 99282; J7030; J7040; A4216

== ENCOUNTER → 2018-05-04 09:00 | Outpatient (CLI) | payer MEDICARE, MEDICAID, SELFPAY ==
[2018-04-16 10:15] VITALS: BMI 28.3
== END ==
PROVIDERS: Family Provider Family Medicine; PCP Family Medicine; Referring Provider Otolaryngology Otolaryngology/Facial Plastic Surgery; Visit Provider Otolaryngology Otolaryngology/Facial Plastic Surgery
DX: J34.89 Other specified disorders of nose and nasal sinuses (principal); L03.211 Cellulitis of face
CPT/HCPCS: 87070; 87205

== ENCOUNTER → 2018-12-02 10:44 | Outpatient (CLI) | payer MEDICARE, MEDICAID, SELFPAY ==
[2018-11-17 10:00] VITALS: BMI 28.3
--- NOTE | 2018-12-02 10:50 | BI_ITS ---
MAMMOGRAPHY - BILATERAL SCREENING REASON FOR EXAM: Female, 68 years old. Routine annual screening examination. PERTINENT HISTORY: Non-contributory. TECHNIQUE: Digital bilateral breast marcos (3D mammographic acquisition) in the CC and MLO projections. 2-D mediolateral oblique (MLO) and craniocaudad (CC) views of both breasts were obtained. CAD: Full Field Digital Mammography with Computer Added Detection was performed. COMPARISON: Comparison is made with prior study dated June 10, 2016 and May 30, 2015. FINDINGS: Breast Composition: The breasts are almost entirely fatty. There are no dominant masses or suspicious calcifications. No other significant abnormalities are identified. There has been no significant change since the prior study. BI/SCREEN MAMM (CAD) W/MARCOS BILAT IMPRESSION: Stable bilateral screening mammogram. Yearly follow-up mammogram recommended. (A) ASSESSMENT CATEGORY: BIRADS Category 1: Negative. A letter regarding these results will be sent to the patient by the facility within 30 days. Approximately 10% of breast cancers are not detected by mammography. A normal mammogram should not delay biopsy of a clinically suspicious abnormality. [id number] Electronically Signed: Tim Jo, at 12:34 EDT , Service support ,
== END ==
PROVIDERS: Family Provider Family Medicine; PCP Family Medicine; Referring Provider Family Medicine; Visit Provider Family Medicine
DX: Z12.31 Encounter for screening mammogram for malignant neoplasm of breast (principal)
CPT/HCPCS: 77063; 77067

== ENCOUNTER → 2019-01-12 09:55 | Outpatient (CLI) | payer MEDICARE, MEDICAID, SELFPAY ==
[2018-11-17 10:00] VITALS: BMI 28.3
[2019-01-12 12:01] LABS: Absolute Lymphocyte Count 1.25 X10^3/uL (0.83-4.51); Absolute Neutrophil Count 2.3 X10^3/uL (2.0-7.7); Basophil# 0.01 X10^3/uL; Basophil% 0.3 % (0-1); Eosinophil# 0.08 X10^3/uL; Hematocrit 32.5 % (37-47); Hemoglobin 11.1 g/dL (12.0-15.0); Lymphocyte # 1.25 X10^3/ul (4.0); Mean Corp Hgb Conc 34.2 g/dL (32-36); Mean Corpuscular Hgb 35.8 pg (27.0-32.0); Mean Corpuscular Volume 104.8 fL (81-99); Mean Platelet Vol. 10.2 fl (6.2-12.0); Monocyte# 0.28 X10^3/uL; Monocyte% 7.2 % (0-10); NRBC Flagged by Analyzer 0 % (0-5); Neutrophil # 2.28 X10^3/uL (2.7-7.7); Neutrophil % 58.2 % (47-70); Platelet Count 85 K/mm3 (150-450); RBC Distribution Width CV 13.4 % (11.6-14.6); RBC Distribution Width SD 50.8 fl (35.1-43.9); White Blood Count 3.9 K/mm3 (4.4-11.0)
[2019-01-12 12:20] LABS: ALB/GLOB Ratio 0.8 RATIO (0.9-2.4); AST(SGOT) 15 U/L (15-37); Alanine Aminotransfer ALT/SGPT 19 U/L (13-56); Albumin, Serum 3.2 g/dL (3.2-5.0); Alkaline Phosphatase 134 U/L (45-117); Anion Gap 4 (5-15); BUN 19 mg/dL (7-18); BUN/Creat Ratio 30.7 RATIO (10-20); Calcium,Total 8.7 mg/dL (8.5-10.1); Chloride 110 mmol/L (98-107); Cholesterol 180 mg/dL (200); Creatinine, Serum 0.62 mg/dL (0.55-1.02); EST Glomerular Filtration Rate 103 mL/min (>60); Est Glom Filt Rate - Afr Amer 124 mL/min (>60); Globulin 4.2 g/dL (2.2-4.2); Glucose 94 mg/dL (74-106); High Density Lipoprotein 53 mg/dL; Potassium 4.1 mmol/L (3.5-5.1); Protein, Total 7.4 g/dL (6.4-8.2); Sodium Level 141 mmol/L (136-145); T4 Free Direct 1.74 ng/dL (0.76-1.46); Thyroid Stim Hormone (TSH) 0.11 uIU/mL (0.358-3.74); Triglycerides 105 mg/dL; Very Low Density Lipoprotein 21 mg/dL (5-40)
== END ==
PROVIDERS: Family Provider Family Medicine; PCP Family Medicine; Visit Provider Family Medicine
DX: E89.0 Postprocedural hypothyroidism (principal); D64.9 Anemia, unspecified; D69.6 Thrombocytopenia, unspecified; I42.9 Cardiomyopathy, unspecified; Z51.81 Encounter for therapeutic drug level monitoring
CPT/HCPCS: 36415; 80053; 80061; 84439; 84443; 85025

== ENCOUNTER → 2019-02-02 09:41 | Outpatient (CLI) | payer MEDICARE, MEDICAID, SELFPAY ==
[2018-11-17 10:00] VITALS: BMI 28.3
--- NOTE | 2019-02-02 09:48 | BD_ITS ---
STUDY: DUAL ENERGY X-RAY ABSORPTIOMETRY / DXA REASON FOR EXAM: Female, 68 years old. The patient is postmenopausal. TECHNIQUE: Bone Mineral Density (BMD) measurements of lumbar spine and bilateral hips were obtained. COMPARISON: None. FINDINGS: Lumbar Spine (L1-L4): g/cm2 (0.880) / T-score (-2.7) / Z-score (-1.1) Findings are suggestive of osteoporosis with a high fracture risk. Left Femur Total: g/cm2 (0.797) / T-score (-1.7) / Z-score (-0.4) Left Femoral Neck: g/cm2 (0.775) / T-score (-1.9) / Z-score (-0.4) Right Femur Total: g/cm2 (0.753) / T-score (-2.0) / Z-score (-0.8) Right Femoral Neck: g/cm2 (0.730) / T-score (-2.2) / Z-score (-0.7) BD/Dexa Bone Density Study IMPRESSION: The patient is considered osteoporotic as outlined below according to World Harry Organization (WHO) criteria with a high fracture risk. Reference Information: The T-score is the number of standard deviations above or below the standard which is normal for young adults at their peak bone mineral density. The World Health Organization (WHO) interprets the T-scores as follows: Above -1 Normal bone density Between -1 and -2.5 Osteopenia Equal to / or below -2.5 Osteoporosis As a practical clinical guideline, osteopenia may be graded as follows: Mild -1 through -1.5 Moderate -1.6 through -2.0 Severe -2.1 through -2.4 The Z-score is the number of standard deviations above or below age-matched controls. A Z-score of less than -1.5 would be considered abnormal. References: 1. NIH Osteoporosis and Related Bone Diseases http://www.osteo.org 2. International Society for Clinical Densitometry http://www.iscd.org 3. National Osteoporosis Foundation http://www.nof.org Electronically Signed: Tim Jo, at 15:46 EDT , Service support ,
== END ==
PROVIDERS: Family Provider Family Medicine; PCP Family Medicine; Referring Provider Family Medicine; Visit Provider Family Medicine
DX: M81.0 Age-related osteoporosis without current pathological fracture (principal)
CPT/HCPCS: 77080

== ENCOUNTER 2019-02-15 09:28 | Day surgery (SDC) | payer MEDICARE, MEDICAID, SELFPAY ==
[2019-02-09 13:30] VITALS: BMI 28.3
[2019-02-15] VITALS (7 sets, daily range): BP systolic 85–133; BP diastolic 55–82; PULSE 62–74; RESP 16; TEMP 36.1–36.9; O2SAT 95–100; BMI 33.3
[2019-02-15] MEDS: Lactated Ringers 1,000 ML 75 ML IV (10:25)
--- NOTE | 2019-02-15 10:52 | HP.PCM_ITS ---
History and Physical Date of Admission: 02/15/19 [facility] [address] [place] [address] OFFICE VISIT Date of Service: 02/09/19 MR#: [id number] Acct: [id number] Name: LEWIS CASTILLO Rep #: [id number] : 1950 Provider: Star ramirez MD Age/Sex: 68/F Location: [facility] Status: Signed Intake Vital Signs 02/09/19 Body Mass Index (BMI) 28.3 02/09/19 Height 4 ft 8 in 02/09/19 Weight: 158 lb 4 oz 02/09/19 Body Mass Index (BMI) 35.4 02/09/19 Blood Pressure 135/75 H 02/09/19 Blood Pressure Location Lt brachial 02/09/19 Respiratory Rate 16 02/09/19 Pulse Rate 75 02/09/19 Pulse Ox 96 Intake Visit Reasons: Cscope Consult Chief Complaint: chronic constipation Tub Puller Required: No Is patient in pain?: No Allergies clindamycin Allergy (Mild, Verified 02/09/19 13:37) rash Medications aspirin 81 mg tablet,delayed release 81 mg PO QDAY 11/15/17 [History Confirmed 02/09/19] ramipril 2.5 mg tablet 2.5 mg PO QDAY 11/15/17 [History Confirmed 02/09/19] spironolactone 25 mg tablet 25 mg PO QDAY 11/15/17 [History Confirmed 02/09/19] phenytoin sodium extended 100 mg capsule 100 mg PO BID cap 11/16/17 [History Confirmed 02/09/19] sodium fluoride 1.1 % dental gel 1 applic DENTAL QHS 11/16/17 [History Confirmed 02/09/19] Levothyroxine [Synthroid] 150 mcg PO DAILY 04/10/18 [History Confirmed 02/09/19] Acetaminophen [Tylenol Tablet] 650 mg PO Q6H PRN PRN tab 04/12/18 [Rx Confirmed 02/09/19] metoprolol succinate ER 25 mg tablet,extended release 24 hr 25 mg PO BID 11/17/18 [History Confirmed 02/09/19] Is last menstrual period known: No Post menopausal: Yes Patient : No [facility] Medical History Nonischemic cardiomyopathy (Chronic) Nonrheumatic mitral valve regurgitation (Chronic) LBBB (left bundle branch block) (Chronic) Hyperlipidemia (Chronic) Developmental disability (Chronic) Hypothyroidism (Chronic) Seizure disorder (Chronic) Multinodular goiter (Resolved) facial Erysipelas (Resolved) Nonrheumatic aortic (valve) insufficiency (Inactive) Nonrheumatic mitral (valve) prolapse (Inactive) Surgical History History of colonoscopy (Acute ~2016) Hx of nasal polypectomy (Acute) History of foot surgery (Resolved) History of left heart catheterization (Resolved 11/2007) History of thyroidectomy (Resolved) Family History Father TIA (transient ischemic attack) Colon cancer Diabetes Mother Cancer brain Social History (Updated 02/09/19 @ 13:58 by Star Stovall MD) Smoking Status: Never smoker alcohol intake: never substance use type: does not use HPI HPI HPI: LEWIS CASTILLO, is a 68 F who presents to the office today for HPI HPI Surgical H&P: Yes HPI: LEWIS CASTILLO, is a 68 F who presents to the office today for Evaluation for screening colonoscopy. Patient has had problems with constipation. Her last evaluation of her colon was aBarium enema completed in 2005. Exam Const General: no acute distress, well developed, well hydrated Orientation: oriented to person, oriented to place, oriented to time HENVA Head: normocephalic, atraumatic Ears: external ears normal Mouth: moist mucous membranes Eyes Sclera: sclerae normal Pupils: normal by confrontation Neck Neck: no lymphadenopathy noted Neck mass: No Thyroid: thyroid normal, symmetrical Chest Chest palpation & inspection: normal inspection of the chest Resp Effort & Inspection: normal respiratory effort Auscultation: clear to auscultation bilaterally Percussion: percussion normal Cardio Rate: regular rate Rhythm: regular rhythm GI Palpation: soft, no hepatosplenomegaly, no masses, nontender Rectal Exam: other Other: Rectal exam deferred. Extrem General: normal to inspection, no clubbing, cyanosis or edema Assessment & Plan Problems 1. Screening for colon cancer Z12.11 Plan I have discussed the above with the patient. I have offered the patient colonoscopy for evaluation. I have explained the risks/benefits of the procedure and described the procedure. I have discussed the risks with the patient, including but not limited to: infection, bleeding, perforation of the GI tract requiring emergency surgery, inability to complete the procedure, injury to any internal organs, complications of anesthesia, etc. - the patient understands and agrees to proceed. I have answered all the patient's questions to the patient's satisfaction and the patient has no further questions. The patient has been given instructions for the colon cleansing preparation. Coding Level of Care Code Off vis,new,level 3 Diagnoses Screening for colon cancer Z12.11 02/09/19 1358 <Electronically signed by Star crespo MD> Date _ Star Stovall MD [facility] Signature: Date (if applicable) CC: Everett Ruelas DO ~ I have re-examined the patient. There are no clinical changes since date of exam.
--- NOTE | 2019-02-15 11:00 | COLBX_PTH ---
PATIENT: LEWIS CASTILLO LOC: EN U#:[id number] AGE/SX: 68/F ROOM: RE02/15/[address]: Dr. Star Stovall MD : 1950 BED: DIS: 02/15/2019 SPEC #: [id number] RECD: 02/15/19 13:40 STATUS: ANAMARIA FROILAN #: [id number] DONTAE: 02/15/19 11:[address]: Star Stovall DEPT: SURGICAL PATHOLOGY RECD BY: Fito Fairchild ENTERED: 02/15/19 14:24 SP TYPE: COLON BX OTHR DR: Dr. Everett Ruelas, DO Tissues: Rectum, NOS Procedures: Surgery Specimen Level IV HEADER OPERATION: Colonoscopy (MAC) PRE-OP DIAGNOSIS: Screening, constipation TISSUE SUBMITTED: Rectal polyp biopsy MICROSCOPIC DIAGNOSIS Rectal polyp, biopsy: Polypoid fragment of benign colonic mucosa. See comment. AM:kenyetta 02/16/19 COMMENT Neither hyperplastic nor adenomatous change is seen. Clinical correlation is suggested. MICROSCOPIC DESCRIPTION Slides are reviewed. GROSS DESCRIPTION Received in fixative is one container labeled with the patient's name and designated rectal polyp biopsy. The specimen consists of one irregular fragment of light herrera soft tissue that measures 0.3 x 0.3 x 0.1 cm. The specimen is totally submitted in one cassette. / AM:kenyetta 02/15/19 TC:5 CPT: 24727
--- NOTE | 2019-02-15 11:15 | OP.ENDO_ITS ---
02/15/2019 Everett Ruelas [address] [place] [address] Re : Colonoscopy procedure for Vesna Gamboa Dear Dr. Ruelas This procedure was performed on Friday, February 15, 2019. My impressions and recommendations are as follows: Impressions : - One 5 mm polyp in the rectum, removed with a jumbo cold forceps. Resected and retrieved. - The examination was otherwise normal. - The examined portion of the ileum was normal. Recommendations : - Discharge patient to home. - Resume previous diet. - Continue present medications. - Await pathology results. - Repeat colonoscopy in 5 years for surveillance. - Return to GI office in 1 week. My findings are described in the full procedure note, which is enclosed. If I can be of further assistance, please feel free to contact me at Doctor phone number(s): , Fax: [phone], Work: . Sincerely, MD Star Mullins MD 02/15/2019 11:15:19 AM This report has been signed electronically.
== END 2019-02-15 12:17 | disposition home or self-care (01) ==
LOC: EN 09:30 → AC 09:31
PROVIDERS: Family Provider Family Medicine; PCP Family Medicine; Referring Provider Family Medicine; Visit Provider Surgery
PROC: 0DJD8ZZ Inspection of Lower Intestinal Tract, Via Natural or Artificial Opening Endoscopic (ICD-10-PCS; CPT 45378; principal; 2019-02-15 10:55)
DX: Z12.11 Encounter for screening for malignant neoplasm of colon (principal); K62.1 Rectal polyp; K59.09 Other constipation; I10 Essential (primary) hypertension; I42.9 Cardiomyopathy, unspecified; I34.0 Nonrheumatic mitral (valve) insufficiency; I44.7 Left bundle-branch block, unspecified; E78.5 Hyperlipidemia, unspecified; E03.9 Hypothyroidism, unspecified; G40.909 Epilepsy, unspecified, not intractable, without status epilepticus; F89 Unspecified disorder of psychological development; Z79.82 Long term (current) use of aspirin; Z79.899 Other long term (current) drug therapy; Z80.0 Family history of malignant neoplasm of digestive organs
CPT/HCPCS: 45380; 88305; J7120; J1610

== ENCOUNTER → 2019-05-05 12:43 | Outpatient (CLI) | payer MEDICARE, MEDICAID, SELFPAY ==
[2019-02-15 10:20] VITALS: BMI 33.3
--- NOTE | 2019-05-05 12:49 | US_ITS ---
STUDY: RENAL ULTRASOUND - COMPLETE REASON FOR EXAM: Female, 68 years old. Recurrent UTI TECHNIQUE: Ultrasound evaluation of the kidneys was performed with real-time and static hall-scale imaging. COMPARISON: None. FINDINGS: RIGHT KIDNEY: Normal location of the right kidney, which is normal in size. The right kidney measures 10.5 x 4.8 x 4.8 cm. There is a normal cortex of the right kidney. The renal cortex measures 14 cm. There is no right renal mass or cyst. There are no right renal calculi. There is no right hydronephrosis. DISTAL RIGHT URETER: There is non-visualization of the distal right ureter. There is no demonstrated right ureterovesical junction calculus. There is a visualized right ureteral jet. LEFT KIDNEY: Normal location of the left kidney, which is normal in size. The left kidney measures 10.1 x 5.2 x 4.5 cm. There is mild increased echogenicity of the left kidney. The renal cortex measures 0.8 -1.2 cm. There is no left renal mass or cyst. There are no left renal calculi. There is no left hydronephrosis. DISTAL LEFT URETER: There is non-visualization of the distal left ureter. There is no demonstrated left ureterovesical junction calculus. There is a visualized left ureteral jet. BLADDER: The distended urinary bladder has a volume of 123.9 ml. . There is a normal wall thickness of the distended urinary bladder. There is no demonstrated mass within the urinary bladder. There are no demonstrated bladder calculi. US/Kidney and Bladder IMPRESSION: There is a mild increased echogenicity of the left greater than right kidney which may indicate underlying medical renal disease. No evidence of hydronephrosis. Electronically Signed: Cherelle Rudolph MD at 15:24 EST Tel , Service support ,
== END ==
PROVIDERS: Family Provider Family Medicine; PCP Family Medicine; Referring Provider Family Medicine; Visit Provider Family Medicine
DX: N39.0 Urinary tract infection, site not specified (principal)
CPT/HCPCS: 76770

== ENCOUNTER → 2019-07-12 09:34 | Outpatient (CLI) | payer MEDICARE, MEDICAID, SELFPAY ==
[2019-02-15 10:20] VITALS: BMI 33.3
[2019-07-12 12:23] LABS: Absolute Lymphocyte Count 1.24 X10^3/uL (0.83-4.51); Absolute Neutrophil Count 2.6 X10^3/uL (2.0-7.7); Basophil# 0.01 X10^3/uL; Basophil% 0.2 % (0-1); Eosinophil# 0.09 X10^3/uL; Eosinophils% 2.1 % (0-5); Hematocrit 30.8 % (37-47); Hemoglobin 10.3 g/dL (12.0-15.0); Lymphocyte # 1.24 X10^3/ul (4.0); Lymphocyte % 28.6 % (19-41); Mean Corp Hgb Conc 33.4 g/dL (32-36); Mean Corpuscular Hgb 35.6 pg (27.0-32.0); Mean Corpuscular Volume 106.6 fL (81-99); Mean Platelet Vol. 10.8 fl (6.2-12.0); Monocyte% 9.2 % (0-10); NRBC Flagged by Analyzer 0 % (0-5); Neutrophil # 2.57 X10^3/uL (2.7-7.7); Neutrophil % 59.4 % (47-70); POSITIVE COUNT YES; Platelet Count 81 K/mm3 (150-450); RBC Distribution Width CV 13.9 % (11.6-14.6); RBC Distribution Width SD 53.7 fl (35.1-43.9); Red Blood Count 2.89 M/mm3 (4.2-5.4); White Blood Count 4.3 K/mm3 (4.4-11.0)
[2019-07-12 12:33] LABS: Differential Indicated SCAN CRITERIA MET
[2019-07-12 12:40] LABS: Hemoglobin A1c 4.9 % (4.2-6.3)
[2019-07-12 12:43] LABS: Vitamin B12 712 pg/mL (211-911)
[2019-07-12 12:49] LABS: ALB/GLOB Ratio 0.9 RATIO (0.9-2.4); AST(SGOT) 12 U/L (15-37); Alanine Aminotransfer ALT/SGPT 17 U/L (13-56); Albumin, Serum 3.5 g/dL (3.2-5.0); Alkaline Phosphatase 136 U/L (45-117); Anion Gap 6 (5-15); BUN 21 mg/dL (7-18); BUN/Creat Ratio 31.2 RATIO (10-20); Calcium,Total 8.7 mg/dL (8.5-10.1); Chloride 107 mmol/L (98-107); Creatinine, Serum 0.67 mg/dL (0.55-1.02); EST Glomerular Filtration Rate 93 mL/min (>60); Est Glom Filt Rate - Afr Amer 112 mL/min (>60); Ferritin 16 ng/mL (8-252); Glucose 86 mg/dL (74-106); Iron 115 ug/dL (50-170); Protein, Total 7.5 g/dL (6.4-8.2); Sodium Level 139 mmol/L (136-145); T4 Free Direct 1.48 ng/dL (0.76-1.46); Thyroid Stim Hormone (TSH) 1.36 uIU/mL (0.358-3.74)
[2019-07-12 13:12] LABS: Anisocytosis 1+; Platelet Estimate MOD DEC (ADEQ); Red Cell Morphology N CHROM NORMAL (NORM C&C)
== END ==
PROVIDERS: PCP Family Medicine; Visit Provider Family Medicine
DX: E89.0 Postprocedural hypothyroidism (principal); D69.6 Thrombocytopenia, unspecified; D64.9 Anemia, unspecified; R73.01 Impaired fasting glucose
CPT/HCPCS: 36415; 80053; 82607; 82728; 83036; 83540; 84439; 84443; 85025

== ENCOUNTER 2020-04-17 18:59 | Emergency (ER) | payer MEDICARE, MEDICAID, SELFPAY ==
[2020-01-25 13:44] VITALS: BMI 29.4
[2020-04-17 19:01] VITALS: BP 149/72; PULSE 78; RESP 20; TEMP 36.4; O2SAT 99; BMI 28.3
--- NOTE | 2020-04-17 19:13 | RAD_ITS ---
ADDENDUM: Prior study dated 02/19/2015 has been submitted for comparison purposes. The currently described bony defect in the dorsal surface of the talus is new finding and is most likely an acute fracture Electronically Signed: Cabrera العلي MD at 21:29 EST , Service support , RAD/Foot min 3 Views
--- NOTE | 2020-04-17 19:14 | ED.VIS.GEN ---
History of Present Illness Chief Complaint: Lower Extremity Injury Informant: Patient, - - jail staff Onset: Today Current Severity: Moderate Maximum Severity: Moderate Narrative: Patient presents with injury to the right foot and ankle. She reportedly tripped and fell this morning while doing some laundry. Staff states she was initially okay but as the day goes on she had more difficulty ambulating on her right foot and ankle. She denies any other injury. She has not yet taken anything for pain. - Past Medical History (1) Hypothyroid Status: Chronic (2) Hyperlipidemia Status: Chronic (3) LBBB (left bundle branch block) Status: Chronic (4) Nonischemic cardiomyopathy Status: Chronic (5) Seizure disorder Status: Chronic Past Medical History - Allergies and Home Meds Allergies/Adverse Reactions: Allergies clindamycin Allergy (Mild, Verified 01/26/20 09:23) rash Primary Care Physician: Everett Ruelas DO [Primary Care Provider] - Prior records reviewed: Yes Lives: - - jail Smoking Status: Never smoker - Family History Paternal Family History: Family History (Last Reviewed 01/26/20 @ 10:[address] Doyle Zuniga MD) Father TIA (transient ischemic attack) Colon cancer Diabetes Mother Cancer Family History: Reports: No pertinent history Review of Systems General: Denies: Chills, Fever Eyes: Denies: Visual changes - bilaterally ENT: Denies: Bilateral ear pain Cardiovascular: Denies: Chest pain Respiratory: Denies: Dyspnea, Cough Gastrointestinal: Denies: Abdominal pain Musculoskeletal: Reports: Swelling, Extremity Pain Skin: Denies: Rash, Wounds Neurological: Denies: Headache Hematologic: Denies: Easy bruising, Easy bleeding Allergy: Denies: Uticaria Physical Exam Vital Signs/Narrative: Vital Signs Temp Pulse Resp BP Pulse Ox 04/17/20 19:01 97.6 F L 78 20 H 149/72 H 99 Inital Vital Signs reviewed: Yes General: Well nourished, Well developed Head: Normocephalic ENT: Moist mucous membranes Neck: Supple, - - No C-spine tenderness Cardiovascular: Regular rate, Regular rhythm Respiratory: No distress, CTA bilaterally Abdomen: Soft, Nontender Extremities: - - Diffuse tenderness throughout the right foot and ankle. No obvious deformity. No open wounds or ecchymosis. Mild diffuse edema. Skin: Normal color Neurological: Alert Psychological: Normal affect Diagnostic/Tx/Re-eval Impressions Ankle X-Ray 04/17/20 19:30 IMPRESSION: Bimalleolar sprain. No evidence for acute fracture or dislocation Electronically Signed: Cabrera العلي MD at 19:57 EST , Service support , 04/17/20 19:13 Foot min 3 Views [RAD] Stat 04/17/20 19:30 Ankle min 3 Views [RAD] Stat Left foot x-ray per my review reveals no evidence of fracture. - Medical Decision Making Patient was given ibuprofen here. She will be given an air stirrup splint. She declines need for crutches or a walker. ED Disposition - Plan for ED Patient: Disposition: Home or Assisted Living Diagnosis: Ankle sprain Instructions: ED Sprain Ankle W X Ray Referrals: Everett Ruelas DO [Primary Care Provider] - 1 Week if not improving
[2020-04-17] MEDS: Ibuprofen 200 MG Tablet 400 MG PO (19:22)
--- NOTE | 2020-04-17 19:30 | RAD_ITS ---
STUDY: X-RAY - RIGHT ANKLE REASON FOR EXAM: Female, 69 years old. PT FELL AT HOME WHILE DOING LAUNDRY. RIGHT FOOT AND ANKLE PAIN TECHNIQUE: 3 view(s) of the ankle. COMPARISON: None. FINDINGS: Normal visualized distal tibia and fibula. Normal medial and lateral malleoli. Normal tibiotalar articulation and ankle mortise. Normal visualized talus and calcaneus. The visualized subtalar, talonavicular, calcaneocuboid and tarsal articulations are normal. Diffuse bimalleolar soft tissue swelling is noted RAD/Ankle min 3 Views IMPRESSION: Bimalleolar sprain. No evidence for acute fracture or dislocation Electronically Signed: Cabrera العلي MD at 19:57 EST , Service support ,
[2020-04-17 21:16] VITALS: BP 159/75; PULSE 78; RESP 16; O2SAT 95
== END 2020-04-17 21:17 | disposition home or self-care (01) ==
PROVIDERS: Emergency Provider Emergency Medicine; PCP Family Medicine
DX: S93.401A Sprain of unspecified ligament of right ankle, initial encounter (principal); W01.0XXA Fall on same level from slipping, tripping and stumbling without subsequent striking against object, initial encounter
CPT/HCPCS: 73610; 73630; 99283

== ENCOUNTER → 2020-05-29 13:45 | Outpatient (CLI) | payer MEDICARE, MEDICAID, SELFPAY ==
--- NOTE | 2020-05-29 13:48 | BI_ITS ---
MAMMOGRAPHY - BILATERAL SCREENING REASON FOR EXAM: Female, 69 years old. Routine annual screening examination. PERTINENT HISTORY: PT MENTALLY CHALLENGED - EXAM DONE WITH 2 TECHS - BEST IMAGES - NO FAM HX - NO PREV SURG''S- RT MOLE MARKED TECHNIQUE: Digital bilateral breast marcos (3D mammographic acquisition) in the CC and MLO projections. 2-D mediolateral oblique (MLO) and craniocaudad (CC) views of both breasts were obtained. CAD: Full Field Digital Mammography with Computer Added Detection was performed. COMPARISON: 06/04/2018 and 06/10/2016 FINDINGS: Breast Composition: The breasts are almost entirely fatty. There are no dominant masses or suspicious calcifications. No other significant abnormalities are identified. BI/SCREEN MAMM (CAD) W/MARCOS BILAT IMPRESSION: Stable bilateral screening mammogram. Yearly follow-up mammogram recommended. (A) ASSESSMENT CATEGORY: BIRADS Category 2: Benign. A letter regarding these results will be sent to the patient by the facility within 30 days. Approximately 10% of breast cancers are not detected by mammography. A normal mammogram should not delay biopsy of a clinically suspicious abnormality. [id number] Electronically Signed: Ovidio Ricardo, at 15:17 EST Tel , Service support ,
== END ==
PROVIDERS: PCP Family Medicine; Referring Provider Family Medicine; Visit Provider Family Medicine
DX: Z12.31 Encounter for screening mammogram for malignant neoplasm of breast (principal)
CPT/HCPCS: 77063; 77067

== ENCOUNTER → 2020-09-23 12:21 | Outpatient (CLI) | payer MEDICARE, MEDICAID, SELFPAY ==
[2020-09-23 13:35] LABS: Absolute Lymphocyte Count 1.39 X10^3/uL (0.83-4.51); Basophil# 0.01 X10^3/uL; Basophil% 0.2 % (0-1); Eosinophil# 0.06 X10^3/uL; Eosinophils% 1.2 % (0-5); Hematocrit 32.6 % (37-47); Hemoglobin 10.5 g/dL (12.0-15.0); Lymphocyte # 1.39 X10^3/ul (0.83-4.51); Lymphocyte % 28.3 % (19-41); Mean Corp Hgb Conc 32.2 g/dL (32-36); Mean Corpuscular Hgb 34.5 pg (27.0-32.0); Mean Corpuscular Volume 107.2 fL (81-99); Mean Platelet Vol. 11.2 fl (6.2-12.0); Monocyte# 0.39 X10^3/uL; Monocyte% 7.9 % (0-10); NRBC Flagged by Analyzer 0 % (0-5); Neutrophil # 3.04 X10^3/uL (2.7-7.7); POSITIVE COUNT YES; Platelet Count 83 K/mm3 (150-450); RBC Distribution Width CV 13.7 % (11.6-14.6); RBC Distribution Width SD 53.8 fl (35.1-43.9); Red Blood Count 3.04 M/mm3 (4.2-5.4); White Blood Count 4.9 K/mm3 (4.4-11.0)
[2020-09-23 14:03] LABS: ALB/GLOB Ratio 0.9 RATIO (0.9-2.4); AST(SGOT) 14 U/L (15-37); Alanine Aminotransfer ALT/SGPT 14 U/L (13-56); Albumin, Serum 3.7 g/dL (3.2-5.0); Alkaline Phosphatase 144 U/L (45-117); Anion Gap 7 (5-15); BUN 15 mg/dL (7-18); BUN/Creat Ratio 21.4 RATIO (10-20); Calcium,Total 8.8 mg/dL (8.5-10.1); Chloride 103 mmol/L (98-107); EST Glomerular Filtration Rate 88 mL/min (>60); Est Glom Filt Rate - Afr Amer 107 mL/min (>60); Ferritin 18 ng/mL (8-252); Glucose 87 mg/dL (74-106); Iron 65 ug/dL (50-170); Potassium 3.9 mmol/L (3.5-5.1); Protein, Total 7.7 g/dL (6.4-8.2); Sodium Level 139 mmol/L (136-145); T4 Free Direct 1.78 ng/dL (0.76-1.46); Thyroid Stim Hormone (TSH) 0.21 uIU/mL (0.358-3.74)
[2020-09-23 14:34] LABS: Hepatitis C Antibody Non-Reactive (Nonreactive); Vitamin B12 564 pg/mL (211-911)
== END ==
PROVIDERS: PCP Family Medicine; Visit Provider Family Medicine
DX: D64.9 Anemia, unspecified (principal); E89.0 Postprocedural hypothyroidism; R53.83 Other fatigue; Z51.81 Encounter for therapeutic drug level monitoring
CPT/HCPCS: 36415; 80053; 82607; 82728; 83540; 84439; 84443; 85025; 86803

== ENCOUNTER → 2020-12-16 16:35 | Outpatient (CLI) | payer MEDICARE, MEDICAID, SELFPAY ==
--- NOTE | 2020-12-16 16:38 | RAD_ITS ---
STUDY: X-RAY - UNILATERAL RIBS ( RIGHT ) WITH CHEST REASON FOR EXAM: Female, 70 years old. Right flank pain. TECHNIQUE - RIBS: 3 view(s) of the ribs. TECHNIQUE - CHEST: Single frontal view of the chest. COMPARISON: None. FINDINGS - RIBS: Generalized osteopenia of the osseous structures. No displaced rib fracture identified. FINDINGS - CHEST: Bilateral pleural effusions, right greater than left. Mild diffuse interstitial pattern. Cardiomegaly. Normal mediastinum and lorenza. Normal visualized pulmonary arteries. Aortic tortuosity with calcification. Normal visualized thoracic spine. Normal visualized ribs, clavicles, and shoulders. There is no demonstrated abnormality of the visualized soft tissue structures of the upper abdomen. RAD/Ribs Uni Min 3V w/PA Chest IMPRESSION: RIBS: Osteopenia with no displaced rib fracture. CHEST: Cardiomegaly, mild interstitial pattern and bilateral pleural effusions, right greater than left. No acute abnormality. Electronically Signed: Simone Bello MD at 9:37 EDT , Service support ,
--- NOTE | 2020-12-16 16:38 | RAD_ITS ---
STUDY: X-RAY - ABDOMEN/PELVIS REASON FOR EXAM: Female, 70 years old. Right flank pain. TECHNIQUE: Single AP view of the abdomen / pelvis. COMPARISON: None. FINDINGS: Normal visualized lung bases. There is an unremarkable bowel gas pattern with air seen to the rectum. There is no demonstrated free abdominal air. The visualized liver, spleen and kidneys are grossly normal in size and morphology. Phleboliths and calcifications characteristic of uterine fibroids. Scattered metallic densities in the colon, likely from medication. Normal visualized osseous structures. RAD/Abdomen Single View IMPRESSION: No acute abnormality identified. No definite renal stones. Electronically Signed: Simone Bello MD at 9:38 EDT , Service support ,
[2020-12-16 18:42] LABS: T4 Free Direct 1.81 ng/dL (0.76-1.46); Thyroid Stim Hormone (TSH) 0.35 uIU/mL (0.358-3.74)
[2020-12-17 10:18] LABS: Color, Urine Yellow (Yellow); Glucose, Dipstick Normal (Normal); Ketone-Dipstick 5 mg/dl (Negative); Leukocyte Esterase-Dipstick 500 /ul (Negative); Nitrite-Dipstick Negative (Negative); Occult Blood-Urine 25 /ul (Negative); Protein-Dipstick 100 mg/dl (Negative); Urine Clarity Clear (Clear); Urine Urobilinogen 1 mg/dl (Normal)
[2020-12-17 10:21] LABS: Urine Bilirubin Dipstick 1 mg/dL (Negative)
[2020-12-17 10:28] LABS: Red Blood Cells-Urine 5-10 SEEN /hpf (0-5); Squamous Epithelial Cells - UA 5-10 SEEN /hpf (5-10); White Blood Cells 10-25 SEEN /hpf (0-5)
[2020-12-17 10:29] LABS: Bacteria 1+ /hpf (None Seen); Mucous, Urine 1+ /hpf (<or=2+)
== END ==
PROVIDERS: PCP Family Medicine; Referring Provider Family Medicine; Visit Provider Family Medicine
DX: E89.0 Postprocedural hypothyroidism (principal); R82.81 Pyuria; R10.9 Unspecified abdominal pain
CPT/HCPCS: 36415; 71101; 74018; 81001; 84439; 84443; 87086

== ENCOUNTER → 2021-02-17 10:02 | Outpatient (CLI) | payer MEDICARE, MEDICAID, SELFPAY ==
--- NOTE | 2021-02-17 10:17 | MRI_ITS ---
STUDY: MRI ORBITS WITH AND WITHOUT CONTRAST REASON FOR EXAM: Female, 70 years old. OPTIC ATROPHY LEFT EYE,OPTIC NERVE COMPRESSION TECHNIQUE: Standardized fat and water weighted pulse sequences were obtained in all 3 orthogonal planes, pre-and post contrast administration. WITH AND WITHOUT 14ML IV DOTAREM was administered for the contrast portion of the examination. COMPARISON: 04/11/2018 CT sinus FINDINGS: Normal bilateral globes. Normal bilateral optic nerve sheath complexes and optic nerves. Normal bilateral intraconal and extraconal spaces. Normal bilateral extraocular muscles. No evidence for acute infarct. No enhancing lesions. Normal optic chiasm and post-chiasmatic tracts. Normal sella turcica, pituitary gland, infundibular stalk, and hypothalamus. Normal bilateral cavernous sinuses. Normal tectal plate and pineal gland. Normal flow voids within the major intracranial circulation suggesting patency by spin echo criteria. Normal size of the ventricles and extra-axial spaces for the patient''s age. Normal white matter tracts of the supratentorial brain. Normal bilateral basal ganglia. Normal thalami. There is no extra-axial fluid accumulation. Normal midbrain, karissa and medulla. Normal cerebellum. Normal basal cisterns. MRI/Orbit Face Neck W/WO Contrast IMPRESSION: There are no acute findings. Electronically Signed: Jeremías Mabry MD at 13:51 EDT , Service support ,
[2021-02-17 10:29] LABS: CREATININE FINGERSTICK 0.7 mg/dL (0.55-1.02); EGFR FINGERSTICK > 60.0000 mL/min (>60)
== END ==
PROVIDERS: PCP Family Medicine; Referring Provider Ophthalmology; Visit Provider Ophthalmology
DX: H47.212 Primary optic atrophy, left eye (principal)
CPT/HCPCS: 70543; A9575

== ENCOUNTER 2021-07-08 12:25 | Outpatient (CLI) | payer MEDICARE, MEDICAID, SELFPAY ==
--- NOTE | 2021-07-08 12:31 | BI_ITS ---
MAMMOGRAPHY - BILATERAL SCREENING REASON FOR EXAM: Female, 70 years old. Routine annual screening examination. PERTINENT HISTORY: Non-contributory. TECHNIQUE: Digital bilateral breast marcos (3D mammographic acquisition) in the CC and MLO projections. 2-D mediolateral oblique (MLO) and craniocaudad (CC) views of both breasts were obtained. CAD: Full Field Digital Mammography with Computer Added Detection was performed. COMPARISON: Comparison is made with prior study of 05/29/2020 and 12/02/2018. FINDINGS: Breast Composition: The breasts are almost entirely fatty. There are no dominant masses or suspicious calcifications. No other significant abnormalities are identified. There has been no significant change since the prior study. BI/SCRN MAMM (CAD)W/MARCOS BILAT IMPRESSION: Stable bilateral screening mammogram. Yearly follow-up mammogram recommended. (A) ASSESSMENT CATEGORY: BIRADS Category 1: Negative. A letter regarding these results will be sent to the patient by the facility within 30 days. Approximately 10% of breast cancers are not detected by mammography. A normal mammogram should not delay biopsy of a clinically suspicious abnormality. [id number] Electronically Signed: Tim Jo MD at 13:51 EST ,
== END 2021-07-08 23:59 | disposition home or self-care (01) ==
PROVIDERS: PCP Family Medicine; Visit Provider Family Medicine
DX: Z12.31 Encounter for screening mammogram for malignant neoplasm of breast (principal)
CPT/HCPCS: 77063; 77067

== ENCOUNTER → 2022-03-02 | Outpatient (CLI) | payer MEDICARE, MEDICAID, SELFPAY ==
--- NOTE | 2022-03-02 10:55 | ECHOCS_ITS ---
Reason For Study: Afib, Aflutter Procedure This was a 2D Doppler, Color Flow transthoracic echocardiogram. Contrast injection was performed. Exam performed in department. Left Ventricle Normal LV size. The estimated ejection fraction is 45 %. Stage 1 diastolic dysfunction. No regional wall motion abnormalities noted. Right Ventricle Normal RV size. Normal systolic function. Atria Normal left atrium. Normal right atrium. Mitral Valve Normal mitral valve. Mild-Moderate (1-2+) eccentric mitral valve insufficiency. Tricuspid Valve The tricuspid valve is not well visualized. Aortic Valve The aortic valve is not well visualized. Trivial eccentric aortic valve insufficiency. Pulmonic Valve The pulmonic valve is not well visualized. Great Vessels Normal aortic root. The pulmonary artery is normal size. Normal inferior vena cava. Pericardium/Pleural No pericardial effusion. Medication Diluted definity 3ml given slow IV push to enhance endocardial definition. MMode/2D Measurements & Calculations LVIDd: 4.7 cm IVSd: 1.2 cm Ao root diam: 2.9 cm LVIDs: 3.6 cm LVPWd: 1.1 cm RVDd: 3.1 cm FS: 23.6 % LAV(MOD-bp): 34.6 ml LA A4 area: 15.0 cm2 LA dimension(2D): 3.0 cm LAV(MOD-bp) Indexed: 20.3 ml/m2 LAV(MOD-sp2): 33.2 ml LAV(MOD-sp4): 35.9 ml RA A4 area: 13.0 cm2 Doppler Measurements & Calculations MV E max roosevelt: 43.2 cm/sec Lat Peak E' Roosevelt: 8.9 cm/sec Med Peak E' Roosevelt: 5.1 cm/sec MV A max roosevelt: 60.4 cm/sec E/E' lat: 4.8 E/E' med: 8.5 MV E/A: 0.72 Ao V2 max: 163.2 cm/sec AI max roosevelt: 413.2 cm/sec LV V1 max: 114.8 cm/sec Ao max P.7 mmHg AI max P.4 mmHg LV V1 max P.3 mmHg Ao V2 mean: 112.4 cm/sec AI dec slope: 201.2 cm/sec2 Ao mean P.5 mmHg AI P1/2t: 601.5 msec Ao V2 VTI: 33.3 cm PA V2 max: 80.3 cm/sec ECHO/Echo Complete W/ Contrast Interpretation Summary Normal LV size. The estimated ejection fraction is 45 %. Stage 1 diastolic dysfunction. Mild-Moderate (1-2+) eccentric mitral valve insufficiency. Contrast injection was performed. Ordering Physician: Doyle Zuniga Referring Physician: Everett Ruelas Performed By: Xochitl Chow, CHARLEY, RVT
== END | disposition home or self-care (01) ==
LOC: CVS 10:55
PROVIDERS: PCP Family Medicine; Referring Provider Internal Medicine Cardiovascular Disease; Visit Provider Internal Medicine Cardiovascular Disease
DX: I42.8 Other cardiomyopathies (principal); I48.91 Unspecified atrial fibrillation
CPT/HCPCS: 93306; Q9957; A4216; C8929

== ENCOUNTER → 2022-04-06 | Outpatient (CLI) | payer MEDICARE, MEDICAID, SELFPAY ==
[2022-04-06 12:09] LABS: Absolute Neutrophil Count 2.3 X10^3/uL (2.0-7.7); Basophil# 0.01 X10^3/uL; Basophil% 0.3 % (0-1); Eosinophil# 0.04 X10^3/uL; Hematocrit 33.1 % (37-47); Lymphocyte % 28.2 % (19-41); Mean Corp Hgb Conc 33.2 g/dL (32-36); Mean Corpuscular Hgb 35.8 pg (27.0-32.0); Mean Corpuscular Volume 107.8 fL (81-99); Mean Platelet Vol. 9.6 fl (6.2-12.0); Monocyte# 0.39 X10^3/uL; NRBC Flagged by Analyzer 0 % (0-5); Neutrophil # 2.34 X10^3/uL (2.7-7.7); Platelet Count 115 K/mm3 (150-450); RBC Distribution Width CV 14.6 % (11.6-14.6); Red Blood Count 3.07 M/mm3 (4.2-5.4); White Blood Count 3.9 K/mm3 (4.4-11.0)
[2022-04-06 12:49] LABS: Vitamin D,25 Hydroxy 19.3 ng/mL
[2022-04-06 13:04] LABS: ALB/GLOB Ratio 0.9 RATIO (0.9-2.4); AST(SGOT) 11 U/L (15-37); Alanine Aminotransfer ALT/SGPT 20 U/L (13-56); Albumin, Serum 3.6 g/dL (3.2-5.0); Alkaline Phosphatase 122 U/L (45-117); Anion Gap 8 (5-15); BUN 21 mg/dL (7-18); BUN/Creat Ratio 26.1 RATIO (10-20); Calcium,Total 8.8 mg/dL (8.5-10.1); Chloride 106 mmol/L (98-107); Creatinine, Serum 0.81 mg/dL (0.55-1.02); EST Glomerular Filtration Rate 75 mL/min (>60); Est Glom Filt Rate - Afr Amer 91 mL/min (>60); Globulin 3.9 g/dL (2.2-4.2); Glucose 93 mg/dL (74-106); Potassium 4.1 mmol/L (3.5-5.1); Protein, Total 7.5 g/dL (6.4-8.2); Sodium Level 140 mmol/L (136-145); T4 Free Direct 1.56 ng/dL (0.76-1.46); Thyroid Stim Hormone (TSH) 2.52 uIU/mL (0.358-3.74)
== END | disposition home or self-care (01) ==
LOC: BFHLAB 10:56
PROVIDERS: PCP Family Medicine; Visit Provider Family Medicine
DX: E89.0 Postprocedural hypothyroidism (principal); D69.6 Thrombocytopenia, unspecified; M81.8 Other osteoporosis without current pathological fracture
CPT/HCPCS: 36415; 80053; 82306; 84439; 84443; 85025

== ENCOUNTER → 2022-04-27 | Outpatient (CLI) | payer MEDICARE, MEDICAID, SELFPAY ==
[2022-04-27 12:42] VITALS: BP 124/57; PULSE 77; RESP 12; O2SAT 98; BMI 27.1
[2022-04-27] MEDS: DENOSUMAB 60 MG/ML SC (12:48)
== END | disposition home or self-care (01) ==
PROVIDERS: PCP Family Medicine; Visit Provider Family Medicine
DX: M81.0 Age-related osteoporosis without current pathological fracture (principal)
CPT/HCPCS: 96372; J0897

== ENCOUNTER → 2022-07-09 | Outpatient (CLI) | payer MEDICARE, MEDICAID, SELFPAY ==
--- NOTE | 2022-07-09 13:15 | BI_ITS ---
MAMMOGRAPHY - BILATERAL SCREENING REASON FOR EXAM: Female, 71 years old. Routine annual screening examination. PERTINENT HISTORY: Non-contributory. TECHNIQUE: Digital bilateral breast marcos (3D mammographic acquisition) in the CC and MLO projections. 2-D mediolateral oblique (MLO) and craniocaudad (CC) views of both breasts were obtained. CAD: Full Field Digital Mammography with Computer Added Detection was performed. COMPARISON: Comparison is made with prior study of 07/08/2021 and 05/29/2020. FINDINGS: Breast Composition: The breasts are almost entirely fatty. There are no dominant masses or suspicious calcifications. No other significant abnormalities are identified. There has been no significant change since the prior study. BI/SCRN MAMM (CAD)W/MARCOS BILAT IMPRESSION: Stable bilateral screening mammogram. Yearly follow-up mammogram recommended. (A) ASSESSMENT CATEGORY: BIRADS Category 1: Negative. A letter regarding these results will be sent to the patient by the facility within 30 days. Approximately 10% of breast cancers are not detected by mammography. A normal mammogram should not delay biopsy of a clinically suspicious abnormality. [id number] Electronically Signed: Tim Jo MD at 14:21 EST ,
== END | disposition home or self-care (01) ==
LOC: OPBI 13:12
PROVIDERS: PCP Family Medicine; Referring Provider Family Medicine; Visit Provider Family Medicine
DX: Z12.31 Encounter for screening mammogram for malignant neoplasm of breast (principal)
CPT/HCPCS: 77063; 77067

== ENCOUNTER → 2022-08-17 | Outpatient (CLI) | payer MEDICARE, MEDICAID, SELFPAY ==
--- NOTE | 2022-08-17 12:30 | ECHOD_ITS ---
Reason For Study: Dilated CMP Procedure This was a 2D Doppler, Color Flow transthoracic echocardiogram. The study was technically difficult. Patient refused IV for use of Definity. Exam performed in department. Left Ventricle Normal LV size. Mild concentric left ventricular hypertrophy. The left ventricular ejection fraction is 45 %. Stage 1 diastolic dysfunction. Right Ventricle Normal RV size. Normal systolic function. Mitral Valve Bileaflet diffuse mitral valve thickening. Mild (1+) eccentric mitral valve insufficiency. Tricuspid Valve Normal tricuspid valve. Mild tricuspid valve insufficiency. Pulmonary artery systolic pressure is 20 mmHg. Aortic Valve Normal aortic valve. Mild (1+) aortic valve insufficiency. Great Vessels Normal aortic root. The pulmonary artery is normal size. Normal inferior vena cava. Pericardium/Pleural No pericardial effusion. MMode/2D Measurements & Calculations LVIDd: 4.5 cm IVSd: 1.4 cm Ao root diam: 3.1 cm LVIDs: 3.5 cm LVPWd: 1.4 cm RVDd: 3.1 cm FS: 21.9 % LAV(MOD-bp): 35.0 ml LA dimension(2D): 3.0 cm LA A4 area: 16.9 cm2 LAV(MOD-bp) Indexed: 20.0 ml/m2 LAV(MOD-sp2): 27.7 ml LAV(MOD-sp4): 43.3 ml RA A4 area: 12.0 cm2 Doppler Measurements & Calculations MV E max roosevelt: 41.1 cm/sec Lat Peak E' Roosevelt: 8.2 cm/sec Med Peak E' Roosevelt: 6.0 cm/sec MV A max roosevelt: 65.0 cm/sec E/E' lat: 5.0 E/E' med: 6.8 MV E/A: 0.63 Ao V2 max: 159.9 cm/sec AI max roosevelt: 405.9 cm/sec LV V1 max: 109.4 cm/sec Ao max P.2 mmHg AI max P.9 mmHg LV V1 max P.8 mmHg AI dec slope: 154.7 cm/sec2 AI P1/2t: 768.6 msec PA V2 max: 106.0 cm/sec TR max roosevelt: 203.5 cm/sec TR max P.6 mmHg ECHO/Echo Complete Interpretation Summary Normal LV size. Mild concentric left ventricular hypertrophy. The left ventricular ejection fraction is 45 %. Stage 1 diastolic dysfunction. Mild (1+) eccentric mitral valve insufficiency. Compared to previous study, the left ventricular systolic function is the same. . Ordering Physician: Doyle Zuniga Referring Physician: Everett Ruelas Performed By: Nilda Roth RDCS
== END | disposition home or self-care (01) ==
LOC: CVS 12:30
PROVIDERS: PCP Family Medicine; Visit Provider Internal Medicine Cardiovascular Disease
DX: I42.8 Other cardiomyopathies (principal); I44.7 Left bundle-branch block, unspecified
CPT/HCPCS: 93306

== ENCOUNTER 2022-08-25 12:38 | Emergency (ER) | payer MEDICARE, MEDICAID, SELFPAY ==
[2022-08-25 12:39] VITALS: BP 156/74; PULSE 73; RESP 18; TEMP 35.8; O2SAT 98; BMI 27.1
--- NOTE | 2022-08-25 14:56 | EX.ED.DYSGE1 ---
HPI History of Present Illness Chief Complaint: Complaint Informant: patient and other (care home staff member) Onset/Context/Timing Onset: Today Narrative Narrative: Patient presents with long-term staff member secondary to dysuria. She is been complaining of pain with urination today. No fever has been noted. She does have a history of recurrent UTIs. She is currently on low-dose Macrobid daily given her history of UTIs. 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 Recurrent UTI (urinary tract infection) Seizure disorder Thrombocytopenia Home Medications ramipril 2.5 mg tablet 2.5 mg PO QDAY * 11/15/17 [History Last Taken 04/10/18 08:00 2.5mg] spironolactone 25 mg tablet 25 mg PO QDAY 25mg 11/15/17 [History Last Taken 04/10/18 08:00 25 mg] phenytoin sodium extended 100 mg capsule (Dilantin Extended) 100 mg PO BID seizures 11/16/17 [History Last Taken 04/10/18 08:00 100 mg] metoprolol succinate 25 mg tablet,extended release 24 hr 25 mg PO BID 11/17/18 [History Last Taken Unknown] acetaminophen 325 mg capsule (Tylenol) 650 mg PO BID PRN Fever 01/26/20 [History Last Taken Unknown] levothyroxine 125 mcg capsule 125 mcg PO DAILY 01/26/20 [History Last Taken Unknown] sunscreen SPF 60 lotion ea topical 01/26/20 [History Last Taken Unknown] ipratropium bromide 42 mcg (0.06 %) nasal spray 42 mcg intranasal DAILY 01/28/21 [History Last Taken Unknown] sulfamethoxazole 800 mg-trimethoprim 160 mg tablet (Bactrim DS) 1 tab PO BID #5 tabs 08/25/22 [Rx Last Taken Unknown] Allergy/AdvReac Type Severity Reaction Status Date / Time clindamycin Allergy Mild rash Verified 08/25/22 12:40 Family History Father TIA (transient ischemic attack) Colon cancer Diabetes Mother Cancer brain Surgical History History of colonoscopy (~2015) History of foot surgery History of left heart catheterization (11/2007) History of thyroidectomy Hx of nasal polypectomy Social History Smoking Status: Never smoker alcohol intake: never substance use type: does not use ROS ROS ED Constitutional Constitutional ED: Denies chills or fever(s) Eyes Eyes: Denies discharge from eye(s) ENT ENT ED: Denies discharge from eye(s) or sore throat Cardiovascular Cardiovascular: Denies chest pain Respiratory/Chest Respiratory/Chest: Denies cough or dyspnea Gastrointestinal Gastrointestinal: Denies abdominal pain, nausea or vomiting Genitourinary Genitourinary ED: Reports dysuria Musculoskeletal Musculoskeletal: Denies back pain or extremity pain Integumentary Denies Abrasions or rash Neurologic Neurologic: Denies headache(s) or weakness Allergic/Immunologic Allergic/Immunologic ED: Denies lip swelling or urticaria EXAM Physical Exam Const Vital Signs: 08/25/22 12:39 Temperature 96.5 F L Temperature Source Temporal Pulse Rate 73 Respiratory Rate 18 Blood Pressure 156/74 H Blood Pressure Mean 101 Pulse Ox 98 Oxygen Delivery Method Room Air Positive well nourished and well developed General Appearance ED: well developed HEENT Reports normocephalic and head/scalp atraumatic Eyes PERRL and EOMs intact bilaterally Neck supple Chest Wall inspection of chest normal and palpation of chest normal Resp normal respiratory effort and clear to auscultation bilaterally Cardio regular rate and regular rhythm GI normal to inspection, nondistended, normoactive bowel sounds Palpation: soft Back/Spine no CVA tenderness Extremity normal to inspection Neuro no sensory deficits noted Sensorium / Orientation: alert Motor Exam: strength 5/5 throughout Psych mental status grossly normal Skin no rashes or lesions noted MDM MDM MDM Narrative Medical decision making narrative: Urinalysis obtained using a hat in the commode. Due to this I am not able to send a culture. Lab Data Labs: Laboratory Results - last 24 hr 08/25/22 14:55 Urine Color Yellow Urine Clarity Clear Urine pH 6.5 Ur Specific Guy 1.005 Urine Protein Negative Urine Glucose (UA) Normal Urine Ketones Negative Urine Occult Blood 10 H Urine Nitrite Negative Urine Bilirubin Negative Urine Urobilinogen Normal Ur Leukocyte Esterase 500 H Urine RBC 0-5 SEEN Urine WBC 50-100 SEEN Ur Squamous Epith Cells 0-5 SEEN Amorphous Sediment 1+ URATE Urine Bacteria 1+ Hyaline Casts 0 SEEN Urine Mucus 0 SEEN Additional Tests and Interventions Additional Tests or Interventions: Urinalysis does reveal evidence of infection with 50-100 white cells and 1+ bacteria. I did review the patient's most recent lab work from last March. She has not had problems with renal function. She will be given 3 days of Bactrim. I do not have any prior urine cultures available to review. Discharge Plan Triage Chief Complaint: Complaint ED Provider: Tawana Bell Dx/Rx/DC Orders Clinical Impression: Cystitis Instructions: ED Cystitis Female Adult Prescriptions: New sulfamethoxazole-trimethoprim [Bactrim DS] 800-160 mg tablet 1 tab PO BID Qty: 5 0RF No Action spironolactone 25 mg tablet 25 mg PO QDAY ramipril 2.5 mg tablet 2.5 mg tablet 2.5 mg PO QDAY phenytoin sodium extended [Dilantin Extended] 100 mg capsule 100 mg PO BID metoprolol succinate 25 mg tablet extended release 24 hr 25 mg PO BID levothyroxine 125 mcg capsule 125 mcg capsule 125 mcg PO DAILY acetaminophen [Tylenol] 325 mg capsule 650 mg PO BID PRN (Reason: Fever) sunscreen SPF 60 lotion SPF 60 lotion TOPICAL ipratropium bromide 42 mcg (0.06 %) spray,non-aerosol 42 mcg intranasal DAILY Primary Care Provider: Everett Ruelas Referrals: Everett Ruelas [Primary Care Provider] - 1 Week Disposition Disposition: Home, Self Care
[2022-08-25 14:59] LABS: Color, Urine Yellow (Yellow); Glucose, Dipstick Normal (Normal); Ketone-Dipstick Negative (Negative); Leukocyte Esterase-Dipstick 500 /ul (Negative); Mucous, Urine 0 SEEN /hpf (<or=2+); Nitrite-Dipstick Negative (Negative); Occult Blood-Urine 10 /ul (Negative); Protein-Dipstick Negative (Negative); Specific Gravity, Urine 1.005 (1.002-1.030); Urine Bilirubin Dipstick Negative (Negative); Urine Clarity Clear (Clear); Urine Urobilinogen Normal (Normal); Urine pH 6.5 (5.0 - 8.0)
[2022-08-25 15:14] LABS: Amorphous Sediment 1+ URATE; Bacteria 1+ /hpf (None Seen); Hyaline Cast 0 SEEN /lpf (0-5); Red Blood Cells-Urine 0-5 SEEN /hpf (0-5); Squamous Epithelial Cells - UA 0-5 SEEN /hpf (5-10); White Blood Cells 50-100 SEEN /hpf (0-5)
[2022-08-25] MEDS: Smz/Tmp Ds Tablet 1 TABLET PO (15:40)
[2022-08-25 15:43] VITALS: RESP 14
== END 2022-08-25 15:43 | disposition home or self-care (01) ==
PROVIDERS: Emergency Provider Emergency Medicine; PCP Family Medicine; Visit Provider Emergency Medicine
DX: N30.90 Cystitis, unspecified without hematuria (principal)
CPT/HCPCS: 81001; 99283

== ENCOUNTER → 2022-09-01 | Outpatient (CLI) | payer MEDICARE, MEDICAID, SELFPAY | END | disposition home or self-care (01) | LOC: LABSPEC 11:48 | PROVIDERS: PCP Family Medicine; Referring Provider Family Medicine; Visit Provider Family Medicine | DX: N39.0 Urinary tract infection, site not specified (principal) | CPT/HCPCS: 87086; 87088 ==

== ENCOUNTER → 2022-09-16 | Outpatient (CLI) | payer MEDICARE, MEDICAID, SELFPAY ==
--- NOTE | 2022-09-16 11:29 | BD_ITS ---
STUDY: DUAL ENERGY X-RAY ABSORPTIOMETRY / DXA REASON FOR EXAM: Female, 71 years old. 733.00OsteoporosisBONE DENSITY REASON FOR EXAM TECHNIQUE: Bone Mineral Density (BMD) measurements of lumbar spine and bilateral hips were obtained. COMPARISON: Comparison is made with prior study of February 02, 2019. FINDINGS: Lumbar Spine (L1-L4): g/cm2 (0.881) / T-score (-1.5) / Z-score (0.6) Findings are suggestive of osteopenia with a low fracture risk. Left Femur Total: g/cm2 (0.756) / T-score (-1.5) / Z-score (0.0) Left Femoral Neck: g/cm2 (0.606) / T-score (-2.2) / Z-score (-0.4) Right Femur Total: g/cm2 (0.720) / T-score (-1.8) / Z-score (-0.3) Right Femoral Neck: g/cm2 (0.579) / T-score (-2.4) / Z-score (-0.6) The T-Scores on the most recent prior examination were: Lumbar Spine (L1-L4): There has been improvement of bone density since the previous examination. Left Femur Total: which represents an improvement of 2.7%. Right Femur Total: which represents an improvement of 3.7%. BD/Dexa Bone Density Study IMPRESSION: The patient is considered osteopenic as outlined below according to World Harry Organization (WHO) criteria with a high fracture risk. There has been improvement of bone density since the previous examination. Reference Information: The T-score is the number of standard deviations above or below the standard which is normal for young adults at their peak bone mineral density. The World Health Organization (WHO) interprets the T-scores as follows: Above -1 Normal bone density Between -1 and -2.5 Osteopenia Equal to / or below -2.5 Osteoporosis As a practical clinical guideline, osteopenia may be graded as follows: Mild -1 through -1.5 Moderate -1.6 through -2.0 Severe -2.1 through -2.4 The Z-score is the number of standard deviations above or below age-matched controls. A Z-score of less than -1.5 would be considered abnormal. References: 1. NIH Osteoporosis and Related Bone Diseases www osteo.org 2. International Society for Clinical Densitometry www iscd.org 3. National Osteoporosis Foundation www nof.org Electronically Signed: Tim Jo MD at 13:41 EDT ,
== END | disposition home or self-care (01) ==
PROVIDERS: PCP Family Medicine; Referring Provider Family Medicine; Visit Provider Family Medicine
DX: M81.0 Age-related osteoporosis without current pathological fracture (principal)
CPT/HCPCS: 77080

== ENCOUNTER 2022-10-23 12:45 | Outpatient (CLI) | payer MEDICARE, MEDICAID, SELFPAY ==
[2022-10-23 13:00] VITALS: BP 161/74; PULSE 74; RESP 18
[2022-10-23] MEDS: DENOSUMAB 60 MG/ML SC (13:06)
== END 2022-10-23 12:46 | disposition home or self-care (01) ==
LOC: MEDOUTP 12:46
PROVIDERS: PCP Family Medicine; Referring Provider Family Medicine; Visit Provider Family Medicine
DX: M81.0 Age-related osteoporosis without current pathological fracture (principal)
CPT/HCPCS: 96372; J0897

== ENCOUNTER 2023-04-08 08:01 | Emergency (ER) | payer MEDICARE, MEDICAID, SELFPAY ==
[2023-04-08 08:03] VITALS: BP 169/72; PULSE 61; RESP 16; TEMP 35.8; O2SAT 99; BMI 29.8
--- NOTE | 2023-04-08 08:53 | EDS_ITS ---
HPI History of Present Illness Chief Complaint: Lower Extremity Injury Informant: patient and other (Caregiver) Narrative Narrative: Patient presents with her caregiver secondary to a left foot injury. Patient reportedly has a history of osteoporosis. Caregiver states she noted some bruising to the patient's left foot last evening that worsened today. Patient reportedly told her that a door stopper fell over on her foot. This was not witnessed by any staff members. Patient has reportedly been able to ambulate without difficulty and denies having pain. 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 Recurrent UTI (urinary tract infection) Seizure disorder Thrombocytopenia Home Medications ramipril 2.5 mg tablet 2.5 mg PO QDAY * 11/15/17 [History Last Taken 04/10/18 08 :00 2.5mg] spironolactone 25 mg tablet 25 mg PO QDAY 25mg 11/15/17 [History Last Taken 04/10/18 08:00 25 mg] phenytoin sodium extended 100 mg capsule (Dilantin Extended) 100 mg PO BID seizures 11/16/17 [History Last Taken 04/10/18 08:00 100 mg] metoprolol succinate 25 mg tablet,extended release 24 hr 25 mg PO BID 11/17/18 [History Last Taken Unknown] acetaminophen 325 mg capsule (Tylenol) 650 mg PO BID PRN Fever 01/26/20 [History Last Taken Unknown] levothyroxine 125 mcg capsule 100 mcg PO DAILY 01/26/20 [History Last Taken Unknown] sunscreen SPF 60 lotion ea topical 01/26/20 [History Last Taken Unknown] ipratropium bromide 42 mcg (0.06 %) nasal spray 42 mcg intranasal DAILY 01/28/21 [History Last Taken Unknown] Lactobacillus acidophilus (Acidophilus capsule) 10 mg PO DAILY 10/23/22 [History Last Taken Unknown] baclofen 10 mg tablet 10 mg PO DAILY 10/23/22 [History Last Taken Unknown] cetirizine 10 mg tablet 10 mg PO DAILY 10/23/22 [History Last Taken Unknown] cilostazol 100 mg tablet 100 mg PO BID 10/23/22 [History Last Taken Unknown] divalproex 125 mg tablet,delayed release 125 mg PO TID 10/23/22 [History Last Taken Unknown] famotidine 20 mg tablet 20 mg PO DAILY 10/23/22 [History Last Taken Unknown] mirtazapine 30 mg tablet 30 mg PO DAILY 10/23/22 [History Last Taken Unknown] omeprazole 20 mg tablet,delayed release 20 mg PO DAILY 10/23/22 [History Last Taken Unknown] oxybutynin chloride 5 mg tablet 5 mg PO DAILY 10/23/22 [History Last Taken Unknown] denosumab 60 mg/mL subcutaneous syringe (Prolia) 60 mg subcut [id number] 02/09/23 [History Last Taken Unknown] handicap placcard #1 ea 02/09/23 [Rx Last Taken Unknown] Allergy/AdvReac Type Severity Reaction Status Date / Time clindamycin Allergy Mild rash Verified 04/08/23 08:02 Family History Father TIA (transient ischemic attack) Colon cancer Diabetes Mother Cancer brain Surgical History History of colonoscopy (~2015) History of foot surgery History of left heart catheterization (11/2007) History of thyroidectomy Hx of nasal polypectomy Social History Smoking Status: Never smoker alcohol intake: never substance use type: does not use ROS ROS ED Constitutional Constitutional ED: Denies chills or fever(s) Cardiovascular Cardiovascular: Denies chest pain Respiratory/Chest Respiratory/Chest: Denies cough or dyspnea Gastrointestinal Gastrointestinal: Denies abdominal pain Musculoskeletal Musculoskeletal: Reports extremity pain; Denies back pain Integumentary Denies Abrasions or rash Neurologic Neurologic: Denies headache(s) or weakness Allergic/Immunologic Allergic/Immunologic ED: Denies lip swelling or urticaria EXAM Physical Exam Const Vital Signs: 04/08/23 08:03 Temperature 96.5 F L Temperature Source Temporal Pulse Rate 61 Respiratory Rate 16 Blood Pressure 169/72 H Blood Pressure Mean 104 Pulse Ox 99 Oxygen Delivery Method Room Air Positive well nourished and well developed General Appearance ED: well developed HEENT Reports moist mucous membranes Chest Wall inspection of chest normal and palpation of chest normal Resp normal respiratory effort and clear to auscultation bilaterally Cardio regular rate and regular rhythm GI non-tender Extremity Extremity Narrative: Ecchymosis noted across the dorsal aspect of the left foot. No focal bony tenderness. Minimal edema. No tenderness at the ankle or knee. Neuro moves all extremities MDM MDM MDM Narrative Medical decision making narrative: Left foot x-rays obtained to evaluate for fracture. Differential diagnosis includes sprain, strain, contusion, fracture. Treatment and Re-Evaluation Narrative: Left foot x-ray per my interpretation feels no evidence of acute fracture. Screws from prior surgical fixation are intact and in place. Dewayne wrap will be applied and patient be discharged with her caregiver. Discharge Plan Triage Chief Complaint: Lower Extremity Injury ED Provider: Tawana Bell Dx/Rx/DC Orders Clinical Impression: Contusion of foot, left Instructions: ED Foot Contusion Prescriptions: No Action spironolactone 25 mg tablet 25 mg PO QDAY ramipril 2.5 mg tablet 2.5 mg tablet 2.5 mg PO QDAY phenytoin sodium extended [Dilantin Extended] 100 mg capsule 100 mg PO BID metoprolol succinate 25 mg tablet extended release 24 hr 25 mg PO BID levothyroxine 125 mcg capsule 125 mcg capsule 100 mcg PO DAILY acetaminophen [Tylenol] 325 mg capsule 650 mg PO BID PRN (Reason: Fever) sunscreen SPF 60 lotion SPF 60 lotion TOPICAL ipratropium bromide 42 mcg (0.06 %) spray,non-aerosol 42 mcg intranasal DAILY Prolia 60 mg/mL syringe 60 mg subcut [id number] (DME) handicap placcard See Rx Instructions .Route .MEDSUPPLY Qty: 1 0RF Rx Instructions: Dx: debility Exp: 01/2028 cilostazol 100 mg Tablet 100 mg PO BID cetirizine 10 mg Tablet 10 mg PO DAILY famotidine 20 mg Tablet 20 mg PO DAILY baclofen 10 mg Tablet 10 mg PO DAILY mirtazapine 30 mg Tablet 30 mg PO DAILY divalproex 125 mg Tablet,Delayed Release (Dr/Ec) 125 mg PO TID Acidophilus Capsule 10 mg PO DAILY oxybutynin chloride 5 mg Tablet 5 mg PO DAILY omeprazole 20 mg Tablet,Delayed Release (Dr/Ec) 20 mg PO DAILY Primary Care Provider: Everett Ruelas Referrals: Everett Ruelas DO [Primary Care Provider] - 1 Week if not improving Disposition Disposition: Home, Self Care
--- NOTE | 2023-04-08 08:58 | RAD_ITS ---
STUDY: X-RAY - LEFT FOOT CLINICAL: Female, 72 years old. Pain following injury. TECHNIQUE: 3 view(s) of the foot. COMPARISON: None. FINDINGS: Normal talus, calcaneus, and tarsal bones. Normal visualized subtalar, talonavicular, calcaneocuboid, tarsal and tarsometatarsal articulations. 2 small metallic screws are seen in the midportion of the fifth metatarsal. Normal metatarsophalangeal joint of the great toe. Normal tibial and fibular sesamoid bones. Normal interphalangeal joint of the great toe. Normal phalanges of the great toe. Normal second through fifth metatarsophalangeal joints. Normal interphalangeal joints and phalanges of the lesser toes. The soft tissue structures are unremarkable. RAD/Foot min 3 Views IMPRESSION: No acute abnormality is seen. Electronically Signed: Tim Jo MD at 9:18 EST ,
[2023-04-08 09:59] VITALS: BP 119/76; RESP 16
== END 2023-04-08 10:00 | disposition home or self-care (01) ==
PROVIDERS: Emergency Provider Emergency Medicine; PCP Family Medicine; Visit Provider Emergency Medicine
DX: S90.32XA Contusion of left foot, initial encounter (principal); X58.XXXA Exposure to other specified factors, initial encounter
CPT/HCPCS: 73630; 99282

== ENCOUNTER → 2023-04-15 | Outpatient (CLI) | payer MEDICARE, MEDICAID, SELFPAY ==
--- NOTE | 2023-04-15 14:58 | CT_ITS ---
STUDY: CT MAXILLOFACIAL SINUSES REASON FOR EXAM: Female, 72 years old. R NASAL POLYP RADIATION DOSAGE (If Supplied By Facility): CTDIvol = ( 33.06 ) mGy, DLP = ( 763.60 ) mGycm TECHNIQUE: The patient was scanned in a multi detector CT scanner. High resolution axial imaging was performed without the administration of intravenous contrast material. Sagittal and coronal images were reconstructed. Individualized dose optimization techniques were used for this CT. COMPARISON: 04/11/2018 FINDINGS: FRONTAL SINUSES: Normal aeration, without mucosal inflammatory disease. ETHMOIDAL SINUSES: Normal aeration, without mucosal inflammatory disease. MAXILLARY SINUSES: Mucosal thickening of the bilateral maxillary sinuses without significant air fluid levels. SPHENOIDAL SINUSES: Slight mucosal thickening of the posterior left sphenoid sinus. There is patency of the bilateral maxillary infundibuli with normal uncinate processes, ethmoid bullae, and hiatus semilunaris. Normal bilateral middle turbinates. There is diffuse enlargement of the right inferior turbinate that is contiguous with a soft tissue mass along the posterior bony nasal septum on image 61 of series 4 measuring 2.2 x 2.8 cm (previously measured 2.2 x 2.5 cm). The left inferior turbinate is normal. Similar narrowing of the posterior nasal airway (comparing image 68 series 601 with image 73 series 601 with the prior exam). The soft tissue mass does extend across midline and involves the posterior left nasal airway. The visualized osseous structures are normal. The visualized bilateral orbital contents are normal. CT/Sinus/Facial Bone IMPRESSION: 1. 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 2. Chronic sinusitis, not significantly changed since 2018. Electronically Signed: Brandon Hamilton MD (Brooks) at 20:26 EST ,
== END | disposition home or self-care (01) ==
LOC: CT 14:54
PROVIDERS: PCP Family Medicine; Visit Provider Otolaryngology
DX: J33.9 Nasal polyp, unspecified (principal)
CPT/HCPCS: 70486

== ENCOUNTER 2023-04-27 09:11 | Outpatient (CLI) | payer MEDICARE, MEDICAID, SELFPAY ==
[2023-04-27 09:18] VITALS: BP 150/85; PULSE 71; RESP 16; TEMP 35.8; O2SAT 95; BMI 29.7
[2023-04-27] MEDS: DENOSUMAB 60 MG/ML SC (09:37)
== END 2023-04-27 09:12 | disposition home or self-care (01) ==
LOC: MEDOUTP 09:11
PROVIDERS: PCP Family Medicine; Referring Provider Family Medicine; Visit Provider Family Medicine
DX: M81.0 Age-related osteoporosis without current pathological fracture (principal)
CPT/HCPCS: 96372; J0897

== ENCOUNTER → 2023-05-17 | Outpatient (CLI) | payer MEDICARE, MEDICAID, SELFPAY ==
[2023-05-17 15:20] LABS: Absolute Lymphocyte Count 1.39 X10^3/uL (0.83-4.51); Absolute Neutrophil Count 3.4 X10^3/uL (2.0-7.7); Basophil# 0.01 X10^3/uL; Basophil% 0.2 % (0-1); Eosinophil# 0.07 X10^3/uL; Eosinophils% 1.3 % (0-5); Hematocrit 34.5 % (37-47); Hemoglobin 11.3 g/dL (12.0-15.0); Lymphocyte # 1.39 X10^3/ul (0.83-4.51); Lymphocyte % 26.2 % (19-41); Mean Corp Hgb Conc 32.8 g/dL (32-36); Mean Corpuscular Hgb 34.9 pg (27.0-32.0); Mean Corpuscular Volume 106.5 fL (81-99); Mean Platelet Vol. 10.9 fl (6.2-12.0); Monocyte# 0.38 X10^3/uL; Monocyte% 7.2 % (0-10); NRBC Flagged by Analyzer 0 % (0-5); Neutrophil # 3.43 X10^3/uL (2.7-7.7); Neutrophil % 64.7 % (47-70); Platelet Count 109 K/mm3 (150-450); RBC Distribution Width CV 14.3 % (11.6-14.6); RBC Distribution Width SD 55.8 fl (35.1-43.9); Red Blood Count 3.24 M/mm3 (4.2-5.4); White Blood Count 5.3 K/mm3 (4.4-11.0)
[2023-05-17 16:00] LABS: Prothrombin Time (Protime)PT. 12.9 SECONDS (11.7-14.9)
[2023-05-17 16:01] LABS: Partial Thromboplast Time 27.7 Seconds (24.1-36.2)
[2023-05-17 16:25] LABS: AST(SGOT) 14 U/L (15-37); Alanine Aminotransfer ALT/SGPT 14 U/L (13-56); Albumin, Serum 3.6 g/dL (3.2-5.0); Alkaline Phosphatase 93 U/L (45-117); Anion Gap 5 (5-15); BUN 26 mg/dL (7-18); BUN/Creat Ratio 33.7 RATIO (10-20); Calcium,Total 9.4 mg/dL (8.5-10.1); Chloride 107 mmol/L (98-107); Creatinine, Serum 0.77 mg/dL (0.55-1.02); EST Glomerular Filtration Rate 78 mL/min (>60); Est Glom Filt Rate - Afr Amer 95 mL/min (>60); Globulin 3.7 g/dL (2.2-4.2); Glucose 86 mg/dL (74-106); Potassium 4.3 mmol/L (3.5-5.1); Protein, Total 7.3 g/dL (6.4-8.2); Sodium Level 138 mmol/L (136-145); T4 Free Direct 1.52 ng/dL (0.76-1.46); Thyroid Stim Hormone (TSH) 1.95 uIU/mL (0.358-3.74)
== END | disposition home or self-care (01) ==
LOC: BFHLAB 11:19
PROVIDERS: PCP Family Medicine; Visit Provider Family Medicine
DX: T14.8XXA Other injury of unspecified body region, initial encounter (principal); E89.0 Postprocedural hypothyroidism; E55.9 Vitamin D deficiency, unspecified; M81.0 Age-related osteoporosis without current pathological fracture
CPT/HCPCS: 36415; 80053; 82306; 84439; 84443; 85025; 85610; 85730

== ENCOUNTER 2023-08-02 10:43 | Day surgery (SDC) | payer MEDICARE, MEDICAID, SELFPAY ==
--- NOTE | 2023-07-27 11:52 | EKG12_ITS ---
Test Reason : PRE PROC Blood Pressure : / mmHG Vent. Rate : 064 BPM Atrial Rate : 064 BPM P-R Int : 144 ms QRS Dur : 154 ms QT Int : 448 ms P-R-T Axes : 049 -57 096 degrees QTc Int : 462 ms Sinus rhythm with Premature atrial complexes in a pattern of bigeminy Left axis deviation Left bundle branch block Abnormal ECG Confirmed by ROSANNA OSBORN, MINDY ([id number]), assignment desk editor YOGI ROBERT ([id number]) on 08/02/2023 10:02:52 AM Referred By: Buddy Maciel Confirmed By:LISA MARTE MD
[2023-07-27 12:20] LABS: Hematocrit 36.3 % (37-47); Hemoglobin 12.3 g/dL (12.0-15.0); Mean Corp Hgb Conc 33.9 g/dL (32-36); Mean Corpuscular Volume 106.1 fL (81-99); Mean Platelet Vol. 9.6 fl (6.2-12.0); POSITIVE COUNT YES; Platelet Count 99 K/mm3 (150-450); Red Blood Count 3.42 M/mm3 (4.2-5.4); White Blood Count 4.8 K/mm3 (4.4-11.0)
[2023-07-27 12:28] LABS: Partial Thromboplast Time 28.8 Seconds (24.1-36.2)
[2023-07-27 13:46] LABS: Anion Gap 5 (5-15); BUN 19 mg/dL (7-18); BUN/Creat Ratio 20.6 RATIO (10-20); Calcium,Total 9.4 mg/dL (8.5-10.1); Chloride 106 mmol/L (98-107); Creatinine, Serum 0.92 mg/dL (0.55-1.02); EST Glomerular Filtration Rate 64 mL/min (>60); Est Glom Filt Rate - Afr Amer 77 mL/min (>60); Glucose 162 mg/dL (74-106); Potassium 3.7 mmol/L (3.5-5.1); Sodium Level 140 mmol/L (136-145); Thyroid Stim Hormone (TSH) 5.89 uIU/mL (0.358-3.74)
--- NOTE | 2023-08-02 | ETH_PTH ---
PATHOLOGY RESULTS PATIENT: LEWIS CASTILLO LOC: [facility] [place] U#:[id number] AGE/SX: 72/F ROOM: RE08/02/[address]: Dr. Buddy aMciel MD : 1950 BED: DIS: 08/02/2023 SPEC #: [id number] RECD: 08/02/23 14:07 STATUS: ANAMARIA FROILAN #: [id number] DONTAE: 08/02/23 00:[address]: Buddy Maciel DEPT: SURGICAL PATHOLOGY RECD BY: Mayo Cohn ENTERED: 08/03/23 08:58 SP TYPE: ETH TISS OTHR DR: Dr. Everett Ruelas DO Tissues: Ethmoid sinus, NOS Ethmoid sinus, NOS Ethmoid sinus, NOS Procedures: Decalcification bone/plaque Surgery Specimen Level IV HEADER OPERATION: Bilateral maxillary antrostomy with tissue removal PRE-OP DIAGNOSIS: Nasal polyp, other chronic sinusitis TISSUE SUBMITTED: A - Right nasal contents, B - Left nasal contents, C - Right inferior turbinate MICROSCOPIC DIAGNOSIS A. Right nasal contents: Fragments of respiratory mucosa with chronic inflammation and bone. B. Left nasal contents: Fragments of respiratory mucosa with chronic inflammation and bone. C. Right inferior turbinate lesion, biopsy: Fragments of benign mucosal polyp. SJ:rg 08/06/2023 COMMENT Case has been reviewed in consultation with Dr. Styles who concurs with the above diagnosis. IDC:AM MICROSCOPIC DESCRIPTION Slides are reviewed. GROSS DESCRIPTION A - Received in fixative is one container labeled with the patient's name and designated right nasal contents. The specimen consists of multiple irregular fragments of herrera soft tissue mixed with possible fragments of bone that in aggregate measure 5.0 x 3.0 x 0.3 cm. The specimen is totally submitted in two cassettes after decalcification. B - Received in fixative is one container labeled with the patient's name and designated left nasal contents. The specimen consists of multiple irregular fragments of herrera soft tissue mixed with fragments of bone that in aggregate measure 1.0 x 1.0 x 0.2 cm. The specimen is totally submitted in two cassettes after decalcification. C - Received in fixative is one container labeled with the patient's name and designated right inferior turbinate. The specimen consists of a polypoid piece of herrera-white tissue measuring 2.5 x 2.0 x 1.5 cm. Also present in the container are multiple fragments of herrera soft tissue measuring in aggregate 2.5 x 1.0 x 0.2 cm. The entire specimen is submitted in four cassette as follows: 1 to 3 - polypoid piece of tissue, 4??rest of the specimen. / YI:kenyetta 08/03/2023 TC:5 CPT: 92691 x3, 77077 x2
[2023-08-02 11:10] VITALS: BP 164/68; PULSE 73; RESP 16; TEMP 36.6; O2SAT 100; BMI 22.4
[2023-08-02] MEDS: Lactated Ringers 1,000 ML 15 ML IV (11:32)
[2023-08-02] MEDS: Oxymetazoline 0.05% 1 SPRAY SPRAY.BTL 3 SPRAY NASAL (11:33)
--- NOTE | 2023-08-02 12:18 | PCM.DC.SUM ---
Providers Primary Care Physician: Dr. Everett Ruelas DO Reason For Visit: Endoscopic,Intranasal Ethmoid,Max,A Medications at Discharge Home Medications ramipril 2.5 mg tablet 2.5 mg PO QDAY * 11/15/17 spironolactone 25 mg tablet 25 mg PO QDAY 25mg 11/15/17 phenytoin sodium extended 100 mg capsule (Dilantin Extended) 100 mg PO BID seizures 11/16/17 metoprolol succinate 25 mg tablet,extended release 24 hr 25 mg PO BID 11/17/18 acetaminophen 325 mg capsule (Tylenol) 650 mg PO BID PRN Fever 01/26/20 levothyroxine 125 mcg capsule 100 mcg PO DAILY 01/26/20 sunscreen SPF 60 lotion 1 ea topical PRN 01/26/20 mirtazapine 30 mg tablet 30 mg PO DAILY 10/23/22 denosumab 60 mg/mL subcutaneous syringe (Prolia) 60 mg subcut [id number] 02/09/23 handicap placcard #1 ea 02/09/23 cholecalciferol (vitamin D3) 50 mcg (2,000 unit) capsule (D3-2000) 50 mcg PO DAILY 07/23/23 nitrofurantoin macrocrystal 50 mg capsule 50 mg PO Q24H 07/23/23 Weight / BMI Weight Weight: 67 kg Body Mass Index (BMI) 22.4 ABG / Lab / Microbiology Data 07/27/23 11:53 07/27/23 11:53 D/C Instructions Discharge Diet: No restrictions Additional Activity Instructions: no nose blowing. Start the antibiotic tonight. Start saline irrigation tomorrow and irrigate 4x/day Please Follow Up With: Buddy Maciel MD When: next week Meaningful Use Info Meaningful Use Diagnoses (Choose all that apply): None applicable Discharge Plan Admission Attending Provider: Buddy Maciel Primary Care Provider: Everett Ruelas Discharge Orders/Prescriptions Prescriptions: No Action spironolactone 25 mg tablet 25 mg PO QDAY ramipril 2.5 mg tablet 2.5 mg tablet 2.5 mg PO QDAY phenytoin sodium extended [Dilantin Extended] 100 mg capsule 100 mg PO BID metoprolol succinate 25 mg tablet extended release 24 hr 25 mg PO BID levothyroxine 125 mcg capsule 125 mcg capsule 100 mcg PO DAILY acetaminophen [Tylenol] 325 mg capsule 650 mg PO BID PRN (Reason: Fever) sunscreen SPF 60 lotion SPF 60 lotion 1 ea TOPICAL PRN Prolia 60 mg/mL syringe 60 mg subcut [id number] (DME) handicap placcard See Rx Instructions .Route .MEDSUPPLY Qty: 1 0RF Rx Instructions: Dx: debility Exp: 01/2028 mirtazapine 30 mg Tablet 30 mg PO DAILY nitrofurantoin macrocrystal 50 mg capsule 50 mg PO Q24H cholecalciferol (vitamin D3) [D3-2000] 50 mcg (2,000 unit) capsule 50 mcg PO DAILY Referrals / Follow Up: Everett Ruelas DO [Primary Care Provider] - Disposition Disposition (needs filled in before D/C Order can be placed): Home, Self Care
[2023-08-02] MEDS: Lidocaine 1% /Epi 1:100 (20ml) 20 ML Vial (12:30)
[2023-08-02] MEDS: Oxymetazoline 0.05% 1 SPRAY SPRAY.BTL 15 SPRAY (12:47)
--- NOTE | 2023-08-02 13:04 | PCM.OPRPT ---
Report of Operation Date of Procedure: 08/02/23 Pre-Operative Diagnosis: chronic sinusitis Post-Operative Diagnosis: same Surgery/Procedure Performed:: bilateral total ethmoidectomy bilateral maxillary antrostomy partial resection right inferior turbinate use of navigation Surgeon: Buddy Maceil Type of Anesthesia: General Anesthesiologist: Pavel Hunt Estimated Blood Loss (mL): minimal Description of Procedure: The patient was taken to the operating room on 08/02/2023. The patient was placed in the supine position on the operating table. The patient was given sufficient general endotracheal anesthesia. The head of bed was elevated 30 degrees. The navigation system was placed and verified per protocol and found to be accurate. 0 and 30 degrees rigid nasal endoscopes were used throughout the entire case. The middle turbinate uncinate process and polyps were injected with 1% lidocaine with epinephrine bilaterally. The right middle turbinate was medialized with a [place] elevator. Polyp was removed from the middle meatus using a sinus shaver. A ball-tipped sinus seeker was placed into the patient's maxillary sinus. Maxillary antrostomy was created with a backbiter. It was further widened with a José Miguel-Cut forceps posteriorly. The uncinate process was taken down using a microdebrider. Next, the ethmoid bulla was opened with a small curette. Anterior and posterior ethmoidectomy were then carried out using curette, sinus shaver and 45 degree Blakesley Conrad forceps. Ethmoid cells were verified for relation to the skull base and orbit prior to being entered with the navigation system. The right inferior turbinate appeared to have undergone previous resection. There was a papillomatous mass emanating from the posterior third of the inferior turbinate and extending into the nasopharynx and anterior into the nasal chamber. I used straight José Miguel-Cut forceps to excise the mass from its attachment at the remnant inferior turbinate. I sent this separately for permanent section. I then cauterized the base of the inferior turbinate with suction cautery. I then placed Afrin pledgets into the sinonasal cavity. Next attention was turned to the left side. The middle turbinate was medialized with a [place] elevator. A polyp was removed from the middle meatus using a sinus shaver. The maxillary antrostomy was created with a backbiter and further widened posteriorly with a José Miguel-Cut forcep. The uncinate process was taken down using a sinus shaver. The ethmoid bulla was opened with a small curette. Anterior posterior ethmoidectomy were then carried out using a sinus shaver curette and [place] Conrad forceps. Ethmoid cells were verified for relation to the skull base and orbit prior to being entered with the navigation system. Hemostasis was then achieved using Afrin pledgets. The pledgets were then removed bilaterally and Elise powder was applied bilaterally for absolute hemostasis. The procedure was then terminated. The patient was then awoken and brought to the recovery room in stable condition. blood loss minimal, replacement none. Sponge, needle, instrument count were correct at the end of the procedure.
[2023-08-02 13:20] VITALS: BP 164/68; BP 176/75; PULSE 72; RESP 14; TEMP 36.4; O2SAT 97
[2023-08-02 13:25] VITALS: BP 164/68; BP 186/93; PULSE 62; RESP 16; O2SAT 100
[2023-08-02 13:30] VITALS: BP 164/68; BP 167/86; PULSE 61; RESP 16; O2SAT 100
[2023-08-02 13:45] VITALS: BP 164/68; BP 174/74; PULSE 57; RESP 16; TEMP 36.4; O2SAT 95
[2023-08-02 14:21] VITALS: BP 164/68
== END 2023-08-02 14:39 | disposition home or self-care (01) ==
LOC: SDC 10:48 → AC 10:49
PROVIDERS: Anesthesiology; PCP Family Medicine; Referring Provider Otolaryngology; Visit Provider Otolaryngology
PROC: (CPT 31255; principal; 2023-08-02 12:15)
DX: J32.9 Chronic sinusitis, unspecified (principal); I42.8 Other cardiomyopathies; J33.9 Nasal polyp, unspecified; I10 Essential (primary) hypertension; E03.9 Hypothyroidism, unspecified; Z79.899 Other long term (current) drug therapy
CPT/HCPCS: 31255; 30110; 00160; J7120; 36415; 80048; 84443; 85027; 85730; 88305; 88311; 93005; J2405

== ENCOUNTER 2023-08-02 21:02 | Emergency (ER) | payer MEDICARE, MEDICAID, SELFPAY ==
[2023-08-02 21:02] VITALS: BP 133/59; PULSE 80; RESP 16; TEMP 36.3; O2SAT 98
[2023-08-02 23:05] VITALS: BP 142/67; PULSE 89; RESP 12; O2SAT 96
[2023-08-02 23:09] VITALS: BMI 45.6
--- NOTE | 2023-08-02 23:31 | EX.ED.DYSGE1 ---
HPI History of Present Illness Chief Complaint: Nosebleed Informant: other ([facility] caregiver) Onset/Context/Timing Onset: Today Context: Gradual Onset Timing: Continuous Quality: Dark red blood Location: Bilateral nares Worsened by: Nothing Relieved by: Nothing Narrative Narrative: Patient presents with epistaxis that began today. Patient had nasal polypectomy done today from bilateral nares. Patient was having persistent bleeding since the surgery. Caregiver states that the bleeding became worse tonight, approximately 2 hours prior to arrival. Patient states the bleeding is coming from both nares. Patient denies any nausea or vomiting. Caregiver denies any fevers or chills. Patient denies any headaches. [facility] Medical History Allergic rhinitis Anemia Bladder disease Cardiology follow-up encounter Chronic sinusitis Developmental disability Easy bruising facial Erysipelas History of colon polyps History of echocardiogram Hyperlipidemia Hypertension Hypothyroidism LBBB (left bundle branch block) Left ventricular systolic dysfunction Multinodular goiter Needle phobia Non-smoker Nonischemic cardiomyopathy Osteoporosis of lumbar spine Psoriasis of scalp Recurrent UTI (urinary tract infection) Seizure disorder Seizures Thrombocytopenia Thyroid disease Home Medications ramipril 2.5 mg tablet 2.5 mg PO QDAY * 11/15/17 [History Last Taken 04/10/18 08:00 2.5mg] spironolactone 25 mg tablet 25 mg PO QDAY 25mg 11/15/17 [History Last Taken 04/10/18 08:00 25 mg] phenytoin sodium extended 100 mg capsule (Dilantin Extended) 100 mg PO BID seizures 11/16/17 [History Last Taken 08/02/23 07:30] metoprolol succinate 25 mg tablet,extended release 24 hr 25 mg PO BID 11/17/18 [History Last Taken 08/02/23 07:30] acetaminophen 325 mg capsule (Tylenol) 650 mg PO BID PRN Fever 01/26/20 [History Last Taken Unknown] levothyroxine 125 mcg capsule 100 mcg PO DAILY 01/26/20 [History Last Taken 08/02/23 07:30] sunscreen SPF 60 lotion 1 ea topical PRN 01/26/20 [History Last Taken Unknown] mirtazapine 30 mg tablet 30 mg PO DAILY 10/23/22 [History Last Taken Unknown] denosumab 60 mg/mL subcutaneous syringe (Prolia) 60 mg subcut [id number] 02/09/23 [History Last Taken Unknown] handicap placcard #1 ea 02/09/23 [Rx Last Taken Unknown] cholecalciferol (vitamin D3) 50 mcg (2,000 unit) capsule (D3-2000) 50 mcg PO DAILY 07/23/23 [History Last Taken Unknown] nitrofurantoin macrocrystal 50 mg capsule 50 mg PO Q24H 07/23/23 [History Last Taken Unknown] Allergy/AdvReac Type Severity Reaction Status Date / Time clindamycin Allergy Mild rash Verified 08/02/23 21:05 Family History Father TIA (transient ischemic attack) Colon cancer Diabetes Mother Cancer brain Surgical History History of colonoscopy (~2015) History of foot surgery History of left heart catheterization (11/2007) History of thyroidectomy Hx of nasal polypectomy Social History Smoking Status: Never smoker alcohol intake: never substance use type: does not use ROS ROS ED Constitutional Constitutional ED: Denies chills or fever(s) Eyes Eyes: Denies blurry vision or change in vision ENT ENT ED: Denies rhinorrhea or sore throat Cardiovascular Cardiovascular: Denies chest pain or palpitations Respiratory/Chest Respiratory/Chest: Denies cough or dyspnea Gastrointestinal Gastrointestinal: Denies nausea or vomiting Genitourinary Genitourinary ED: Denies dysuria or hematuria Musculoskeletal Musculoskeletal: Denies back pain or neck pain Integumentary Denies abscess or rash Neurologic Neurologic: Denies headache(s) or weakness Allergic/Immunologic Allergic/Immunologic ED: Denies mouth swelling or urticaria EXAM Physical Exam Const Vital Signs: 08/02/23 21:02 08/02/23 23:05 08/02/23 23:55 Temperature 97.4 F L Temperature Source Temporal Pulse Rate 80 89 Respiratory Rate 16 12 Respiratory Effort Normal Respiratory Pattern Normal Blood Pressure 133/59 H 142/67 H Blood Pressure Mean 83 92 Pulse Ox 98 96 Oxygen Delivery Method Room Air Room Air 08/03/23 00:58 Temperature Temperature Source Pulse Rate 79 Respiratory Rate 14 Respiratory Effort Respiratory Pattern Blood Pressure 146/70 H Blood Pressure Mean 95 Pulse Ox 100 Oxygen Delivery Method Room Air Positive well nourished and well developed General Appearance ED: well developed and NAD HEENT Reports moist mucous membranes HEENT Narrative: There is active bleeding from bilateral nares. There is no septal deviation or septal hematoma. There is some mild postnasal bleeding. Neck supple and no JVD Resp normal respiratory effort and clear to auscultation bilaterally Cardio regular rate and regular rhythm Neuro oriented x3, CN's II-XII intact bilaterally and no sensory deficits noted Sensorium / Orientation: alert Motor Exam: strength 5/5 throughout Psych mental status grossly normal MDM MDM MDM Narrative Medical decision making narrative: Raheem solution was applied to cotton balls to the bilateral nares. This slowed the bleeding down. There is minimal active bleeding noted. Small Merocel anterior nasal packings were placed in the nares bilaterally. Patient tolerated procedure well. Patient is currently on antibiotics. Patient was instructed to continue antibiotics as prescribed. Patient was instructed to follow-up with Dr. Maciel in 2 days. Caregiver understood and was agreeable with the plan. All questions were answered. Discharge Plan Triage Chief Complaint: Nosebleed ED Provider: Scooter Webb Dx/Rx/DC Orders Clinical Impression: Acute anterior epistaxis Instructions: Nosebleed Prescriptions: No Action spironolactone 25 mg tablet 25 mg PO QDAY ramipril 2.5 mg tablet 2.5 mg tablet 2.5 mg PO QDAY phenytoin sodium extended [Dilantin Extended] 100 mg capsule 100 mg PO BID metoprolol succinate 25 mg tablet extended release 24 hr 25 mg PO BID levothyroxine 125 mcg capsule 125 mcg capsule 100 mcg PO DAILY acetaminophen [Tylenol] 325 mg capsule 650 mg PO BID PRN (Reason: Fever) sunscreen SPF 60 lotion SPF 60 lotion 1 ea TOPICAL PRN Prolia 60 mg/mL syringe 60 mg subcut [id number] (DME) handicap placcard See Rx Instructions .Route .MEDSUPPLY Qty: 1 0RF Rx Instructions: Dx: debility Exp: 01/2028 mirtazapine 30 mg Tablet 30 mg PO DAILY nitrofurantoin macrocrystal 50 mg capsule 50 mg PO Q24H cholecalciferol (vitamin D3) [D3-2000] 50 mcg (2,000 unit) capsule 50 mcg PO DAILY Primary Care Provider: Everett Ruelas Referrals: Buddy Maciel MD [Med Staff - Active Staff] - 2 Days Everett Ruelas DO [Primary Care Provider] - Disposition Disposition: Home, Self Care
[2023-08-02] MEDS: Mixture 30 ML Bottle TOPICAL (23:34)
--- OUTSIDE RECORDS SUMMARY | 2023-08-02 23:50 | XMS RPT_ITS | CCD ---
Author Name Unknown Address [address] [facility] [facility] [address] [address] [place] [address] Organization [facility] Care Team Providers Care President [employer] Name Role Phone AvrilJoselojose manuel Aceves Unavailable Unavailable Alanna Rodríguez Unavailable Unavailable HONEY Early, Sarah Perez Unavailable Unavailabl e Medications Completed/Discontinued Medications Medication Drug Class(es) Dates Sig (Normalized) Sig (Original) aspirin 81 mg delayed release oral tablet (3 sources) Nonsteroidal Anti-inflammatory Drug Start: 11-03-2010 take 1 tablet by mouth once daily ECOTRIN LOW STRENGTH 81 MG TBEC One tablet by mouth daily ASPIRIN [id number] Jaclyn Perez Odonnell Problems Active Problems Problem Classification Problem Date Documented Da te Episodic/Chronic Conduction disorders (6 sources) Left bundle branch block; Translations: [Left bundle branch hemiblock] Onset: 11-03-2010 11-03-2010 Chronic Disorders of lipid metabolism (3 sources) Hyperlipidemia; Translations: [Hyperlipidemia, unspecified] Onset: 09-30-2011 09-30-2011 Chronic Heart valve disorders (5 sources) Mitral valve disorder; Translations: [Mitral valve prolapse] Onset: 11-03-2010 11-03-2010 Chronic Past or Other Problems Problem Classification Problem Date Documented Date Episodic/Chronic Other circulatory disease (3 sources) Electrocardiogram abnormal; Translations: [Abnormal electrocardiogram [ECG] [EKG]] Onset: 11-03-2010 11-03-2010 Episodic Other screening for suspected conditions (not mental disorders or infectious disease) (2 sources) Echocardiogram abnormal; Translations: [Abnormal findings on diagnostic imaging of heart and coronary circulation] Onset: 11-03-2010 11-03-2010 Episodic Residual codes; unclassified (2 sources) FH: Raised blood lipids; Translations: [Family history of other specified conditions] 04-13-2014 Episodic Unclassified (5 sources) Edema; Translations: [FH: Raised blood lipids] Onset: 11-03-2010 11-09-2014 Episodic Results Test Name Value Interpretation Reference Range Facil ity Vital Signs Date Time Vital Sign Value Performing Clinician Evelin bermudez 11-25-2016 13:51-0400 BMI (Body Mass Index) 27.63 kg/m2 [facility] Work Phone: 11-25-2016 13:51-0400 BP Diastolic 58 mm[Hg] [facility] Work Phone: 11-25-2016 13:51-0400 BP Systolic 114 mm[Hg] [facility] Work Phone: 11-25-2016 13:51-0400 Pulse (Heart Rate) 92 /min [facility] Work Phone: 11-25-2016 13:51-0400 Weight 62.05 kg [facility] Work Phone: 11-21-2015 13:49-0400 BMI (Body Mass Index) 22.17 kg/m2 Chente [facility] Work Phone: 11-21-2015 13:49-0400 BP Diastolic 60 mm[Hg] Chente DeFinis [facility] Work Phone: 11-21-2015 13:49-0400 BP Systolic 100 mm[Hg] Chente DeFinis [facility] Work Phone: 11-21-2015 13:49-0400 BSA (Body Surface Area) 1.43 m2 Harjose manuel DeFinis [facility] Work Phone: 11-21-2015 13:49-0400 Pulse (Heart Rate) 52 /min Harjose manuel DeFinis [facility] Work Phone: 11-21-2015 13:49-0400 Respiratory Rate 20 /min Harumi De[facility] Work Phone: 11-21-2015 13:49-0400 Weight 49.81 kg Anaforejose manuel DeFinis [facility] Work Phone: 05-10-2015 14:04-0500 Heart rate 65 /min [facility] Work Phone: 03-22-2012 15:56-0400 Heart rate 464 ms [facility] Work Phone: 09-24-2011 15:08-0400 Height 149.86 cm Chente [facility] Work Phone: Procedures Date Procedure Procedure Detail Performing Clinician Start: 11-25-2016 End: 11-25-2016 Dietary management education, guidance, and counseling Alanna Rodríguez Start: 11-25-2016 End: 11-25-2016 PARKING METER COLLECTOR Sunita King PA-C Work Phone: Start: 11-25-2016 End: 12-03-2016 Echocardiography Sunita King PA-C Work Phone: Start: 11-25-2016 End: 11-25-2016 Follow Up Appt 1 year Sunita fisher PA-C Work Phone: Start: 11-21-2015 End: 11-18-2016 Follow Up Appt 1 year Doyle Zuniga MD Start: 11-21-2015 End: 11-18-2016 CARLOS Zuniga MD Start: 05-10-2015 End: 05-10-2015 PARKING METER COLLECTOR Sunita King PA-C Work Phone: Start: 05-10-2015 End: 05-10-2015 Electrocardiogram, complete Sunita Sandhu PA-C Work Phone: Start: 05-10-2015 End: 05-10-2015 Follow Up Appt 6 months Sunita jimenez PA-C Work Phone: Start: 11-09-2014 End: 12-10-2014 *BMP Doyle Zuniga MD Start: 11-09-2014 End: 11-09-2014 Follow Up Appt 6 months Ana Kang Start: 11-09-2014 End: 11-09-2014 CARLOS Zuniga MD Start: 04-13-2014 End: 04-13-2014 NOELLE King PA-C Work Phone: Start: 04-13-2014 End: 04-13-2014 Follow Up Appt 6 months Sunita jimenez PA-C Work Phone: Start: 10-13-2013 End: 01-16-2014 Echocardiography Doyle Zuniga MD Start: 10-13-2013 End: 10-13-2013 Follow Up Appt 6 months Ana Kang Start: 10-13-2013 End: 10-13-2013 CARLOS Zuniga MD Start: 09-22-2012 End: 09-22-2012 PARKING METER COLLECTORHope Zuniga MD Start: 09-22-2012 End: 09-22-2012 Follow Up Appt 1 year Doyle Zuniga MD Start: 04-01-2012 End: 01-16-2014 *Hepatic Function Panel Jhon Maza MD Start: 04-01-2012 End: 01-16-2014 Lipid panel [AGGREGATE] Jhon Maza MD Start: 03-22-2012 End: 03-22-2012 Follow Up Appt 6 months Jhon Maza MD Start: 09-24-2011 End: 09-29-2011 *BMP Jhon Maza MD Start: 09-24-2011 End: 09-29-2011 *Hepatic Function Panel Jhon Maza MD Start: 09-24-2011 End: 09-29-2011 Echocardiography Jhon Maza MD Start: 09-24-2011 End: 09-24-2011 Follow Up Appt 6 months Jhon Maza MD Start: 09-24-2011 End: 09-29-2011 Lipid panel [AGGREGATE] Jhon Maza MD Start: 09-24-2011 End: 09-29-2011 Magnesium Jhon aMza MD Plan of Treatment Date Care Activity Detail Author Start: 11-16-2017 End: 11-16-2017 Appointment Appointment [facility] Work Phone: Start: 11-25-2016 End: 11-25-2016 Appointment Appointment [facility] Work Phone: Start: 11-25-2016 End: 11-25-2016 PARKING METER COLLECTOR PARKING METER COLLECTOR [facility] Work Phone: Start: 11-25-2016 End: 11-25-2016 Echocardiography Echocardiogram (complete) [facility] Work Phone: Start: 11-25-2016 End: 11-25-2016 Follow Up Appt 1 year Follow Up Appt 1 year [facility] Work Phone: Start: 11-21-2015 End: 11-18-2016 Follow Up Appt 1 year Follow Up Appt 1 year [facility] Work Phone: Start: 11-21-2015 End: 11-18-2016 MMM MMM [facility] Work Phone: Start: 05-10-2015 End: 05-10-2015 PARKING METER COLLECTOR PARKING METER COLLECTOR [facility] Work Phone: Start: 05-10-2015 End: 05-10-2015 Electrocardiogram, complete EKG (In office) [facility] Work Phone: Start: 05-10-2015 End: 05-10-2015 Follow Up Appt 6 months Follow Up Appt 6 months [facility] Work Phone: Start: 11-09-2014 End: 12-10-2014 *BMP *BMP [facility] Work Phone: Start: 11-09-2014 End: 11-09-2014 Follow Up Appt 6 months Follow Up Appt 6 months [facility] Work Phone: Start: 11-09-2014 End: 11-09-2014 MMM MMM [facility] Work Phone: Start: 04-13-2014 End: 04-13-2014 PARKING METER COLLECTOR PARKING METER COLLECTOR [facility] Work Phone: Start: 04-13-2014 End: 04-13-2014 Follow Up Appt 6 months Follow Up Appt 6 months [facility] Work Phone: Start: 10-13-2013 End: 10-13-2013 Echocardiography Echocardiogram (complete) [facility] Work Phone: Start: 10-13-2013 End: 10-13-2013 Follow Up Appt 6 months Follow Up Appt 6 months [facility] Work Phone: Start: 10-13-2013 End: 10-13-2013 MMM MMM [facility] Work Phone: Start: 09-22-2012 End: 09-22-2012 PARKING METER COLLECTOR PARKING METER COLLECTOR [facility] Work Phone: Start: 09-22-2012 End: 09-22-2012 Follow Up Appt 1 year Follow Up Appt 1 year [facility] Work Phone: Start: 04-01-2012 End: 01-16-2014 *Hepatic Function Panel *Hepatic Function Panel [facility] Work Phone: Start: 04-01-2012 End: 01-16-2014 Lipid panel [AGGREGATE] *Lipid Profile [facility] Work Phone: Start: 03-22-2012 End: 03-22-2012 Follow Up Appt 6 months Follow Up Appt 6 months [facility] Work Phone: Start: 09-24-2011 End: 09-29-2011 *BMP *BMP [facility] Work Phone: Start: 09-24-2011 End: 09-29-2011 *Hepatic Function Panel *Hepatic Function Panel [facility] [facility] Work Phone: Start: 09-24-2011 End: 09-24-2011 Echocardiography Echocardiogram (complete) [facility] Work Phone: Start: 09-24-2011 End: 09-24-2011 Follow Up Appt 6 months Follow Up Appt 6 months [employer] [facility] Work Phone: Start: 09-24-2011 End: 09-29-2011 Lipid panel [AGGREGATE] *Lipid Profile [facility] Work Phone: Start: 09-24-2011 End: 09-29-2011 Magnesium *Magnesium [facility] Work Phone: Progress note 01-31-2021 Note Date & Type Note Facility 01-31-2021 Note HNO ID: [id number] Author: Cruzito Silva Jr., MD Service: ? Author Type: Physician Type: Progress Notes Filed: 01/31/2021 11:35 AM Note Text: NEW PATIENT (CONSULT) HISTORY AND PHYSICAL EXAM PRIMARY CARE PHYSICIAN: Jose Allen MD REASON FOR CONSULT: Seizure activity REFERRING PHYSICIAN: Everett Ruelas DO CHIEF COMPLAINT: Seizures Consultation requested by Everett Ruelas DO for an opinion regarding chief complaint of Patient presents with: New [facility]: Seizure activity and my final recommendations will be communicated back to the requesting physician by way of shared medical record or letter via US mail. HISTORY OF PRESENT ILLNESS: Lewis Castillo is a 70 year old female, Ht 151 cm (4' 11.45 ) BMI 30.24 kg/m2 with a PMH significant for and per provided records: Developmental disability, Seizure disorder, Hypothyroid, LVSD, Anemia, Thrombocytopenia, Sinusitis. Medications reviewd and pt on Dilantin 100mg BID. Pt has not had a recorded seizure since childhood. Stated to see a neurologist at [facility]. They would like to know what to do with meds. Appears seizures in childhood with GTC. Those caring for pt in past 2 years, report no staring off, or any other s/s of aura or seizure. Pt is poor historian. REVIEW OF SYSTEMS GENERAL:No weight loss, malaise or fevers. HEENT:Negative for frequent or significant headaches, No changes in hearing or vision, no nose bleeds or other nasal problems NECK:ROM nml. RESPIRATORY: Negative for cough, wheezing or shortness of breath. CARDIOVASCULAR: Negative for chest pain, leg swelling or palpitations. GASTROINTESTINAL: Negative for abdominal discomfort, blood in stools or black stools or change in bowel habits GENITOURINARY: No history of dysuria, frequency or incontinence MUSCULOSKELETAL: Negative for joint pain or swelling, back pain or muscle pain. NEUROLOGIC:Negative for focal numbness or weakness, headaches and dizziness or syncope, vision changes, speech/language changes, changes in gait or falls -- besides those complaints as above in HPI. SKIN:Negative for lesions, rash, and itching. LAB/IMAGING: Reviewed and include: WBC (k/uL) Date Value 01/09/2016 3.20 (L) RBC (m/uL) Date Value 01/09/2016 3.56 (L) Hemoglobin (g/dL) Date Value 01/09/2016 11.5 Hematocrit (%) Date Value 01/09/2016 36.1 MCV (fL) Date Value 01/09/2016 101.4 (H) MCH (pG) Date Value 01/09/2016 32.3 MCHC (g/dL) Date Value 01/09/2016 31.9 RDW-CV (%) Date Value 01/09/2016 14.7 Platelet Count (k/uL) Date Value 01/09/2016 136 (L) MPV (fL) Date Value 01/09/2016 11.9 Glucose (mg/dL) Date Value 01/09/2016 62 (L) BUN (mg/dL) Date Value 01/09/2016 28 (H) Creatinine (mg/dL) Date Value 01/09/2016 0.76 Sodium (mmol/L) Date Value 01/09/2016 143 Potassium (mmol/L) Date Value 01/09/2016 4.3 Chloride (mmol/L) Date Value 01/09/2016 104 CO2 (mmol/L) Date Value 01/09/2016 28 Protein, Total (g/dL) Date Value 01/09/2016 6.5 Albumin (g/dL) Date Value 01/09/2016 4.0 Calcium (mg/dL) Date Value 01/09/2016 8.7 Alkaline Phosphatase (U/L) Date Value 01/09/2016 100 Bilirubin, Total (mg/dL) Date Value 01/09/2016 0.2 AST (U/L) Date Value 01/09/2016 23 ALT (U/L) Date Value 01/09/2016 16 MEDICATIONS: ipratropium bromide (ATROVENT) 42 mcg (0.06 %) nasal spray Use 2 Sprays in each nostril daily at bedtime. OXYMETAZOLINE HCL (NASAL SPRAY EXTRA MOISTURIZING NASAL) Use in the nose once daily. Levothyroxine 150 mcg cap Take 100 mcg by mouth once daily. spironolactone (ALDACTONE) 25 mg tablet Take 25 mg by mouth once daily. ramipril(ALTACE 2.5 MG CAP) one tablet daily metoprolol succinate(TOPROL XL 25 MG 24 HR TAB) Take one(1) tablet daily. aspirin(ECOTRIN LOW STRENGTH 81 MG TAB) PHENYTOIN SODIUM EXTENDED 100 MG CAP Take 100 mg by mouth twice daily. docusate sodium (COLACE) 100 mg capsule Take 100 mg by mouth twice daily. HISTORIES PAST MEDICAL HISTORY Diagnosis Date - Left bundle branch hemiblock - Nonspecific (abnormal) findings on radiological and other examination of other intrathoracic organs - Nonspecific abnormal electrocardiogram (ECG) (EKG) - Nontoxic multinodular goiter - Nontoxic multinodular goiter 02/05 bilat - Other left bundle branch block FAMILY HISTORY Problem Relation Age of Onset - Allergies Father - Allergies Sister - Allergies Brother - Cancer Mother - Colon Cancer Father - Diabetes Brother SOCIAL HISTORY Social History Tobacco Use - Smoking status: Never Smoker - Smokeless tobacco: Never Used Substance Use Topics - Alcohol use: No - Drug use: No PHYSICAL EXAMINATION BP 122/72 Pulse 70 Temp 36.3 ?C (97.3 ?F) Resp 18 Ht 151 cm (4' 11.45 ) Wt 68.9 kg (152 lb) SpO2 98% BMI 30.24 kg/m? GENERAL EXAM: General appearance: NAD, pleasant. HEENT: NC/AT, nasal congestion absent, no oral (more content not included)... [facility] Summary Purpose Family History No Family History Records Found Advance Directives No Advanced Directives Records Found Additional Source Comments INFORMATION SOURCE (unrecogn ized section and content) FOR RECORDS PERTAINING TO PATIENTS WHO ARE OR HAVE BEEN ENROLLED IN A CHEMICAL DEPENDENCY/SUBSTANCEABUSE PROGRAM, SOME INFORMATION MAY BE OMITTED. This clinical summary was aggregated from multiple sources. Caution should be exercised in using it in the provision of clinical care. This summary normalizes information from multiple sources, and as a consequence, information in this document may materially change the coding, format and clinical context of patient data. In addition, data may be omitted in some cases. CLINICAL DECISIONS SHOULD BE BASED ON THE PRIMARY CLINICAL RECORDS. [facility] [employer] [facility]. provides no warranty or guarantee of the accuracy or completeness of information in this document.
[2023-08-03 00:58] VITALS: BP 146/70; PULSE 79; RESP 14; O2SAT 100
--- NOTE | 2023-08-03 01:07 | ED.RN ---
0107: At this time, the group art supervisor came out to nurses station asking when the provider would return. I was informed that the bleeding is controlled and that I need to get home to my kids because the hog driver is scheduled to leave soon by the worker. I informed her that we are just waiting on the provider to be ready. When asked if they needed any additional information, items, pain control, repositioning, toileting the patient and staff member denied additional needs at this time.
[2023-08-03 02:58] VITALS: BP 145/79; PULSE 71; RESP 14; TEMP 37; O2SAT 100
== END 2023-08-03 02:59 | disposition home or self-care (01) ==
PROVIDERS: Emergency Provider Emergency Medicine; PCP Family Medicine; Visit Provider Emergency Medicine
DX: R04.0 Epistaxis (principal); I42.8 Other cardiomyopathies; J32.9 Chronic sinusitis, unspecified; J33.9 Nasal polyp, unspecified; I10 Essential (primary) hypertension; E03.9 Hypothyroidism, unspecified; Z79.899 Other long term (current) drug therapy
CPT/HCPCS: 30901; 36415; 80048; 84443; 85027; 85730; 93005; 99283; J7120; J2405

== ENCOUNTER → 2023-10-13 | Outpatient (CLI) | payer MEDICARE, MEDICAID, SELFPAY ==
--- NOTE | 2023-10-13 09:34 | BI_ITS ---
MAMMOGRAPHY - BILATERAL SCREENING REASON FOR EXAM: Female, 73 years old. Routine annual screening examination. PERTINENT HISTORY: Non-contributory. TECHNIQUE: Digital bilateral breast marcos (3D mammographic acquisition) in the CC and MLO projections. 2-D mediolateral oblique (MLO) and craniocaudad (CC) views of both breasts were obtained. CAD: Full Field Digital Mammography with Computer Added Detection was performed. COMPARISON: Comparison is made with prior study July 09, 2022 and July 08, 2021. FINDINGS: Breast Composition: The breasts are almost entirely fatty. There are no dominant masses or suspicious calcifications. No other significant abnormalities are identified. There has been no significant change since the prior study. BI/SCRN MAMM (CAD)W/MARCOS BILAT IMPRESSION: Stable bilateral screening mammogram. Yearly follow-up mammogram recommended. (A) ASSESSMENT CATEGORY: BIRADS Category 1: Negative. A letter regarding these results will be sent to the patient by the facility within 30 days. Approximately 10% of breast cancers are not detected by mammography. A normal mammogram should not delay biopsy of a clinically suspicious abnormality. [id number] Electronically Signed: Tim Jo MD at 12:44 EDT ,
== END | disposition home or self-care (01) ==
LOC: OPBI 09:33
PROVIDERS: PCP Family Medicine; Referring Provider Family Medicine; Visit Provider Family Medicine
DX: Z12.31 Encounter for screening mammogram for malignant neoplasm of breast (principal)
CPT/HCPCS: 77063; 77067

== ENCOUNTER 2023-10-26 14:26 | Outpatient (CLI) | payer MEDICARE, MEDICAID, SELFPAY ==
[2023-10-26 14:48] VITALS: BP 131/54; PULSE 58; RESP 16; TEMP 35.8; O2SAT 97; BMI 45.7
[2023-10-26] MEDS: DENOSUMAB 60 MG/ML SC (15:01)
== END 2023-10-26 23:59 | disposition home or self-care (01) ==
LOC: MEDOUTP 14:27
PROVIDERS: PCP Family Medicine; Referring Provider Family Medicine; Visit Provider Family Medicine
DX: M81.0 Age-related osteoporosis without current pathological fracture (principal)
CPT/HCPCS: 96372; J0897

== ENCOUNTER 2024-02-21 06:13 | Day surgery (SDC) | payer MEDICARE, MEDICAID, SELFPAY ==
[2024-02-21] VITALS (7 sets, daily range): BP systolic 80–144; BP diastolic 40–75; PULSE 53–65; RESP 16–18; TEMP 36.1–36.5; O2SAT 96–99
--- NOTE | 2024-02-21 06:39 | PRE.ANES_ITS ---
ASA Classification* ASA Classification ASA Classification: 3 Assessment & Plan Anesthesia* Anesthesia Assessment Anesthesia Assessment: Discussed sedation and/or anesthesia options, risks, benefits, and alternatives with patient/parents/legal guardian/POA. Questions invited. The patient/parents/legal guardian/POA seems to understand and agrees to proceed with anesthesia plan. Reviewed the physical assessment, medical history, allergy history and patient home medications list prior to surgery/procedure/anesthetic and documented any changes. Performed airway and anesthesia risk assessments. Anesthesia Type Anesthesia Type: MAC Anesthesia Focused Assessment* Airway Assessment Mouth opens: >3 cm Mallampati Score: II Focused Labs Anesthesia Preop lab: CBC WBC 4.8 K/mm3 (4.4-11.0) 07/27/23 11:53 RBC 3.42 M/mm3 (4.2-5.4) L 07/27/23 11:53 Hgb 12.3 g/dL (12.0-15.0) 07/27/23 11:53 Hct 36.3 % (37-47) L 07/27/23 11:53 Plt Count 99 K/mm3 (150-450) L 07/27/23 11:53 CHEMISTRY Potassium 3.7 mmol/L (3.5-5.1) 07/27/23 11:53 Sodium 140 mmol/L (136-145) 07/27/23 11:53 BUN 19 mg/dL (7-18) H 07/27/23 11:53 Creatinine 0.92 mg/dL (0.55-1.02) 07/27/23 11:53 Glucose 162 mg/dL (74-106) H 07/27/23 11:53 TSH 5.89 uIU/mL (0.358-3.74) H 07/27/23 11:53 COAG PT 12.9 SECONDS (11.7-14.9) 05/17/23 11:19 Pre-Assessment Diagnosis/Proposed Procedure Planned Operative Procedure(s): COLONOSCOPY Anesthesia History Anesthesia History - electric container tester: Anesthesia History - electric container tester Hx Hospitalization No 02/16/24 10:22 Any Problems With Anesthesia No 02/16/24 10:22 Cholinesterase deficiency No 02/16/24 10:22 You/Your Family Experience No 02/16/24 10:22 fever (hyperthermia) with Relationship Recent Exposure to Contagious No 08/02/23 11:10 Disease Does patient have nerve No 02/16/24 10:22 stimulator Patient instructed to have device shut off --Does patient have Pacemaker or ICD? When Was Last Pacemaker Check QUESTION #4 FULL TEXT: You/Your Family Experience fever (hyperthermia) with Anesthesia Last Oral Intake Last Oral intake: Last Oral Intake NPO since Meds taken in AM with sips of water? Meds patient instructed to take am of surgery PONV PONV - electric container tester: PONV - electric container tester Female Yes 02/16/24 10:22 HX of Motion Sickness No 02/16/24 10:22 HX of N/V After Surgery No 02/16/24 10:22 Non-Smoker Yes 02/16/24 10:22 Duration of Surgery greater No 02/16/24 10:22 than 60 minutes Number of Risk Factors 2 02/16/24 10:22 PONV Score Moderate Risk 02/16/24 10:22 Height & Weight Height & Weight: Anesthesia: Height & Weight Height 4 ft 0.5 in 02/03/24 14:49 Respiratory Assessment Respiratory Assessment - electric container tester: Respiratory Tract Infection Hx - electric container tester Hx Respiratory Tract Infection No 02/16/24 10:22 STOP Sleep Apnea STOP Sleep Apnea - electric container tester: STOP Sleep Apnea - electric container tester Hx Hypertension Yes: CONTROLLED ON MED 02/16/24 10:22 Hx Sleep Apnea No 02/16/24 10:22 CPAP BIPAP Do you snore loudly (louder No 02/16/24 10:22 than talking or can be heard Do you often feel tired/ No 02/16/24 10:22 fatigued/ sleepy during daytime? Has anyone observed you stop No 02/16/24 10:22 breathing during sleep? STOP Results Negative 02/16/24 10:22 QUESTION #5 FULL TEXT : Do you snore loudly (louder than talking or can be heard through closed doors)? 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 Specify any problems Hx of Preganancy in last 3 No 02/16/24 10:22 Months Nurse Filling Out Transfusion VCHRISTIN 02/16/24 10:22 & Questions: Date: 02/16/24 02/16/24 10:22 Time: 10:02/16/24 10:22 Patient unable to answer at this time (ie. confused, unrespo /Reproduction History /Reproductive History - electric container tester: /Reproductive Hx- electric container tester Hx Now Gestational Age (in weeks): EDC: Hx Hx Para Hx Section SAB Active Medications Active Medications: Current Medications Generic Name Dose Route Start Last Admin Trade Name Freq PRN Reason Stop Dose Admin Lactated Ringer's 1,000 mls @ 15 mls/hr 02/21/24 06:30 IV .Q48H HERNAN PFSH Medical History Thyroid disease Bladder disease Easy bruising Seizures Non-smoker History of echocardiogram Hypertension Cardiology follow-up encounter Recurrent UTI (urinary tract infection) History of colon polyps Osteoporosis of lumbar spine Needle phobia Chronic sinusitis Thrombocytopenia Anemia Psoriasis of scalp Allergic rhinitis Left ventricular systolic dysfunction Hypothyroidism Nonischemic cardiomyopathy facial Erysipelas Seizure disorder Developmental disability Multinodular goiter LBBB (left bundle branch block) Hyperlipidemia Home Medications ?Medication ?Instructions ?Recorded ?Last Taken ?Type ramipril 2.5 mg tablet 2.5 mg PO QDAY * 11/15/17 04/10/18 08:00 History 2.5mg spironolactone 25 mg tablet 25 mg PO QDAY 25mg 11/15/17 04/10/18 08:00 History 25 mg phenytoin sodium extended 100 mg 100 mg PO BID seizures 11/16/17 08/02/23 07:30 History capsule (Dilantin Extended) metoprolol succinate 25 mg 25 mg PO BID 11/17/18 08/02/23 07:30 History tablet,extended release 24 hr acetaminophen 325 mg capsule 650 mg PO BID PRN Fever 01/26/20 Unknown History (Tylenol) sunscreen SPF 60 lotion 1 ea topical PRN 01/26/20 Unknown History denosumab 60 mg/mL subcutaneous 60 mg subcut [id number] 02/09/23 Unknown History syringe (Prolia) handicap placcard #1 ea 02/09/23 Unknown Rx cholecalciferol (vitamin D3) 50 50 mcg PO DAILY 07/23/23 Unknown History mcg (2,000 unit) capsule (D3-2000) levothyroxine 100 mcg tablet 100 mcg PO DAILY 02/16/24 Unknown History nitrofurantoin 1 cap PO DAILY 02/16/24 Unknown History monohydrate/macrocrystals 100 mg capsule Allergy/AdvReac Type Severity Reaction Status Date / Time clindamycin Allergy Mild rash Verified 02/21/24 06:34 Family History Father TIA (transient ischemic attack) Colon cancer Diabetes Mother Cancer brain Surgical History History of nasal surgery Hx of colonoscopy Hx of nasal polypectomy History of left heart catheterization (11/2007) History of foot surgery History of thyroidectomy Social History household members: other details: Residential living current occupational status: retired current occupation: Retired from [employer] Smoking Status: Never smoker alcohol intake: never substance use type: does not use additional social history: Has Legal Guardian and Provider Review of Systems (Anesthesia) ROS Narrative System reviewed and no additional complaints, except as documented.
[2024-02-21] MEDS: Lactated Ringers 1,000 ML 15 ML IV (06:56)
--- NOTE | 2024-02-21 07:05 | PCM.HP.STD ---
HPI - General General Date of Admission: 02/21/24 Date of Service: 02/21/24 Chief Complaint: Screening colonoscopy HPI Narrative LEWIS CASTILLO, is a 73 F who presents today for screening colonoscopy. It has been 5 years since her last colonoscopy. She had polyps that were found to removed by Dr. Stovall 5 years ago. She is not having any abdominal pain, cramping, chest pain or shortness of breath. [facility] Medical History Thyroid disease Bladder disease Easy bruising Seizures Non-smoker History of echocardiogram Hypertension Cardiology follow-up encounter Recurrent UTI (urinary tract infection) History of colon polyps Osteoporosis of lumbar spine Needle phobia Chronic sinusitis Thrombocytopenia Anemia Psoriasis of scalp Allergic rhinitis Left ventricular systolic dysfunction Hypothyroidism Nonischemic cardiomyopathy facial Erysipelas Seizure disorder Developmental disability Multinodular goiter LBBB (left bundle branch block) Hyperlipidemia Home Medications ?Medication ?Instructions ?Recorded ?Last Taken ?Type ramipril 2.5 mg tablet 2.5 mg PO QDAY * 11/15/17 04/10/18 08:00 History 2.5mg spironolactone 25 mg tablet 25 mg PO QDAY 25mg 11/15/17 04/10/18 08:00 History 25 mg phenytoin sodium extended 100 mg 100 mg PO BID seizures 11/16/17 08/02/23 07:30 History capsule (Dilantin Extended) metoprolol succinate 25 mg 25 mg PO BID 11/17/18 08/02/23 07:30 History tablet,extended release 24 hr acetaminophen 325 mg capsule 650 mg PO BID PRN Fever 01/26/20 Unknown History (Tylenol) sunscreen SPF 60 lotion 1 ea topical PRN 01/26/20 Unknown History denosumab 60 mg/mL subcutaneous 60 mg subcut [id number] 02/09/23 Unknown History syringe (Prolia) handicap placcard #1 ea 02/09/23 Unknown Rx cholecalciferol (vitamin D3) 50 50 mcg PO DAILY 07/23/23 Unknown History mcg (2,000 unit) capsule (D3-1999) levothyroxine 100 mcg tablet 100 mcg PO DAILY 02/16/24 Unknown History nitrofurantoin 1 cap PO DAILY 02/16/24 Unknown History monohydrate/macrocrystals 100 mg capsule Allergy/AdvReac Type Severity Reaction Status Date / Time clindamycin Allergy Mild rash Verified 02/21/24 06:34 Family History Father TIA (transient ischemic attack) Colon cancer Diabetes Mother Cancer brain Surgical History History of nasal surgery Hx of colonoscopy Hx of nasal polypectomy History of left heart catheterization (11/2007) History of foot surgery History of thyroidectomy Social History household members: other details: Residential living current occupational status: retired current occupation: Retired from [employer] Smoking Status: Never smoker alcohol intake: never substance use type: does not use additional social history: Has Legal Guardian and Provider ROS Review of Systems ROS Unobtainable: other Constitutional Constitutional: Denies fatigue, fever(s), poor appetite, weight gain or weight loss ENT HEENT: Denies mouth lesions Cardiovascular Cardiovascular: Denies abdominal bloating, abdominal edema or abdominal pain Respiratory/Chest Respiratory/Chest: Denies change in mental status, change in phlegm color, chest congestion or chest tightness Gastrointestinal Gastrointestinal: Denies belching, bloating, change in bowel habits, change in stool character, chewing difficulty, coffee ground emesis, constipation, cramping, diarrhea, dyspepsia, dysphagia, early satiety, excessive flatus, fecal incontinence, heartburn, hematemesis, hematochezia, hemorrhoids, loose stools, melena, nausea, odynophagia, rectal bleeding, tenesmus, vomiting or weight changes Genitourinary Genitourinary: Denies abdominal discomfort, burning urination or itching Musculoskeletal Musculoskeletal: Reports as per HPI; Denies muscle weakness or myalgias Integumentary Integumentary: Denies jaundice Neurologic Neurologic: Denies lack of coordination or weakness Psychiatric Psychiatric: Denies confusion, depression, memory loss, mood swings, paranoia or suicidal ideation Endocrine Endocrinology: Denies systems reviewed and no addt'l complaints, except as documented Hematologic/Lymphatic Hematologic/Lymphatic: Denies anemia, easy bleeding, easy bruising or lymphadenopathy Allergic/Immunologic Allergic/Immunologic: Denies systems reviewed and no addt'l complaints, except as documented Vital Signs Vital Signs Vital Signs: 02/21/24 06:38 02/21/24 06:38 Temperature 97.0 F L Temperature Source Temporal Pulse Rate 65 Respiratory Rate 18 Respiratory Pattern Normal Blood Pressure 144/75 H Blood Pressure Mean 98 Blood Pressure Source Monitor Blood Pressure Position Semi-Fowlers Blood Pressure Location Right Arm Pulse Ox 99 Oxygen Delivery Method Room Air Physical Exam Const alert General Appearance: cooperative Orientation / Consciousness: oriented to person HEENT hearing grossly normal bilaterally Head and Scalp: normal to inspection Face and Sinus: face symmetric Nose: external nose normal Mouth: oral and palatal mucosa normal Eyes conjunctivae normal General Eye: normal appearance of both eyes Neck full ROM General: normal visual inspection Lymph Lymphatic: no lymphadenopathy noted Chest inspection of chest normal and palpation of chest normal Chest: symmetrical chest wall rise Resp normal respiratory effort Effort and Inspection: able to speak in complete sentences Cardio regular rate GI non-distended Percussion: normal to percussion Rectal Exam: deferred Neuro Speech: speech normal Gait (Neuro): normal gait Assessment & Plan Assessment/Plan (1) Encounter for screening for malignant neoplasm of colon: PLAN: She was explained alternatives, risk, benefits including not withstanding bleeding, infection, sepsis, perforation, need for emergent surgery . She will have an ASA of 3.
--- NOTE | 2024-02-21 07:30 | COLBX_PTH ---
PATIENT: LEWIS CASTILLO LOC: EN U#:[id number] AGE/SX: 73/F ROOM: RE02/21/[address]: Dr. Pk Vanegas DO : 1950 BED: DIS: 02/21/2024 SPEC #: [id number] RECD: 02/21/24 10:35 STATUS: ANAMARIA FROILAN #: [id number] DONTAE: 02/21/24 07:[address]: Pk Vanegas DEPT: SURGICAL PATHOLOGY RECD BY: Jaz Martin ENTERED: 02/21/24 12:23 SP TYPE: COLON BX NINO DR: Dr. Everett Ruelas DO Tissues: A - COLON BIOPSY B - Transverse colon Procedures: Surgery Specimen Level IV HEADER OPERATION: Colonoscopy PRE-OP DIAGNOSIS: Screening TISSUE SUBMITTED: A- Splenic flexure polyp, B- Transverse colon polyp biopsy MICROSCOPIC DIAGNOSIS A. Colonic polyp at splenic flexure, biopsy: Fragments of tubular adenoma. B. Transverse colon polyp, biopsy: Focal hyperplastic change. AM. 02/22/2024 MICROSCOPIC DESCRIPTION Slides are reviewed. GROSS DESCRIPTION A. Received in fixative is one container labeled with the patient's name and designated Splenic flexure biopsy. The specimen consists of multiple irregular fragments of light herrera soft tissue that in aggregate measure 1.0 x 0.3 x 0.1 cm. The specimen is totally submitted in one cassette. B. Received in fixative is one container labeled with the patient's name and designated Transverse colon polyp biopsy. The specimen consists of one irregular fragment of light herrera soft tissue that measures 0.3 x 0.3 x 0.1 cm. The specimen is totally submitted in one cassette. SJ. 02/21/2024 TC:5 CPT:22831t8
--- NOTE | 2024-02-21 08:01 | OP.COLON_ITS ---
Patient Name: Vesna Gamboa Procedure Date: 02/21/2024 7:33 AM Date of : 1950 Age: 73 Procedure: Colonoscopy Indications: Screening for colorectal malignant neoplasm Providers: Pk Vanegas DO Medicines: Monitored Anesthesia Care Patient Profile: This is a 73 year old female. Refer to note in patient chart for documentation of history and physical. Last Colonoscopy: none. The patient's first colonoscopy is today. Complications: No immediate complications. Procedure: Pre-Anesthesia Assessment: - Prior to the procedure, a History and Physical was performed, and patient medications and allergies were reviewed. The patient is competent. The risks and benefits of the procedure and the sedation options and risks were discussed with the patient. All questions were answered and informed consent was obtained. Patient identification and proposed procedure were verified by the physician in the pre-procedure area. Mental Status Examination: alert and oriented. Airway Examination: normal oropharyngeal airway and neck mobility. Respiratory Examination: clear to auscultation. CV Examination: normal. Prophylactic Antibiotics: The patient does not require prophylactic antibiotics. Prior Anticoagulants: The patient has taken no anticoagulant or antiplatelet agents except for NSAID medication. ASA Grade Assessment: II - A patient with mild systemic disease. After reviewing the risks and benefits, the patient was deemed in satisfactory condition to undergo the procedure. The anesthesia plan was to use monitored anesthesia care (MAC). Immediately prior to administration of medications, the patient was re-assessed for adequacy to receive sedatives. The heart rate, respiratory rate, oxygen saturations, blood pressure, adequacy of pulmonary ventilation, and response to care were monitored throughout the procedure. The physical status of the patient was re-assessed after the procedure. After I obtained informed consent, the scope was passed under direct vision. Throughout the procedure, the patient's blood pressure, pulse, and oxygen saturations were monitored continuously. The Colonoscope was introduced through the anus and advanced to the cecum, identified by appendiceal orifice and ileocecal valve. The colonoscopy was performed without difficulty. The patient tolerated the procedure well. The quality of the bowel preparation was adequate. The ileocecal valve, appendiceal orifice, and rectum were photographed. Scope In: 7:42:15 AM Scope Withdrawal Time 0 hours 6 minutes 33 seconds Scope Out: 7:57:50 AM Total Procedure Duration Time 0 hours 15 minutes 35 seconds Findings: The perianal and digital rectal examinations were normal. A few small and large-mouthed diverticula were found in the recto-sigmoid colon and sigmoid colon. Two sessile polyps were found in the hepatic flexure. The polyps were 1 to 2 mm in size. These polyps were removed with a hot snare. Resection and retrieval were complete. Verification of patient identification for the specimen was done. Estimated blood loss was minimal. A 2 mm polyp was found in the transverse colon. The polyp was sessile. The polyp was removed with a jumbo cold forceps. Resection and retrieval were complete. Verification of patient identification for the specimen was done. Estimated blood loss was minimal. Stool was found in the cecum. Impression: - Diverticulosis in the recto-sigmoid colon and in the sigmoid colon. - Two 1 to 2 mm polyps at the hepatic flexure, removed with a hot snare. Resected and retrieved. - One 2 mm polyp in the transverse colon, removed with a jumbo cold forceps. Resected and retrieved. - Stool in the cecum. Recommendation: - Discharge patient to home. - Resume previous diet. - Continue present medications. - Await pathology results. - Repeat colonoscopy in 5 years for surveillance. Procedure Code(s): --- Professional --- 80802, Colonoscopy, flexible; with removal of tumor(s), polyp(s), or other lesion(s) by snare technique 29758, 59, Colonoscopy, flexible; with biopsy, single or multiple CPT copyright 2021 [employer]. All rights reserved. The codes documented in this report are preliminary and upon laborer cheesemaking review may be revised to meet current compliance requirements. Pk Vanegas DO 02/21/2024 8:01:02 AM This report has been signed electronically. Number of Addenda: 0 Note Initiated On: 02/21/2024 7:33 AM
--- NOTE | 2024-02-21 08:01 | OP.CCLET_ITS ---
02/21/2024 Everett Ruelas [address] [place] [address] Re : Colonoscopy procedure for Vesna Gamboa Dear Dr. Ruelas This procedure was performed on Wednesday, February 21, 2024. My impressions and recommendations are as follows: Impressions : - Diverticulosis in the recto-sigmoid colon and in the sigmoid colon. - Two 1 to 2 mm polyps at the hepatic flexure, removed with a hot snare. Resected and retrieved. - One 2 mm polyp in the transverse colon, removed with a jumbo cold forceps. Resected and retrieved. - Stool in the cecum. Recommendations : - Discharge patient to home. - Resume previous diet. - Continue present medications. - Await pathology results. - Repeat colonoscopy in 5 years for surveillance. My findings are described in the full procedure note, which is enclosed. If I can be of further assistance, please feel free to contact me at . Sincerely, Pk Vanegas, 02/21/2024 8:01:02 AM This report has been signed electronically.
--- NOTE | 2024-02-21 08:06 | PCM.POST.ANE ---
Anesthesia: Postop Eval I Current Vital Signs Temperature: 97.7 F Pulse Rate: 58 Blood Pressure: 80/40 Respiratory Rate: 16 Pulse Ox: 98 Oxygen Delivery Method: Room Air Assessment Airway patent: Yes Spontaneous unlabored respirations: Yes Mental status: Awake and Calm nausea: No Vomiting: No Anesthesia Complication: No Fluid Hydration Crystalloid volume administer (ml): 400 Total IV fluid infused: 400 Progress Note Anesthesia document: Postop Eval 1 completed: Yes
--- NOTE | 2024-02-21 08:15 | PCM.POSTANE2 ---
Anesthesia Postop Eval I Sum Postop Eval Completion status Anesthesia document: Postop Eval 1 completed: Yes Anesthesia Postop Eval I Summary Anesthesia Postop Eval I Summary: Anesthesia Postop Eval I: Assessment Summary Airway patent Yes 02/21/24 08:07 [email or web address] Spontaneous unlabored Yes 02/21/24 08:07 [email or web address] respirations Mental status Awake,Calm 02/21/24 08:07 [email or web address] nausea No 02/21/24 08:07 [email or web address] Vomiting No 02/21/24 08:07 [email or web address] Anesthesia Postop Eval I: Fluid Summary Crystalloid volume administer 400 02/21/24 08:07 [email or web address] (ml) Colloids volume administered ( ml) Blood Product volume administered (ml) Total IV fluid infused 400 02/21/24 08:07 [email or web address] Anesthesia Postop Eval I: Summary Notes Anesthesia Complication No 02/21/24 08:07 [email or web address] Anesthesia Complication Comment: Post-operative progress note Anesthesia: Postop Eval II Evaluation Mental status: Awake Pain Level: 0 nausea: No Vomiting: No
== END 2024-02-21 09:14 | disposition home or self-care (01) ==
LOC: EN 06:15 → AC 06:16
PROVIDERS: PCP Family Medicine; Referring Provider Family Medicine; Visit Provider Internal Medicine Gastroenterology
PROC: 0DJD8ZZ Inspection of Lower Intestinal Tract, Via Natural or Artificial Opening Endoscopic (ICD-10-PCS; CPT 45378; principal; 2024-02-21 07:25)
DX: Z12.11 Encounter for screening for malignant neoplasm of colon (principal); I42.8 Other cardiomyopathies; D12.3 Benign neoplasm of transverse colon; K57.30 Diverticulosis of large intestine without perforation or abscess without bleeding; E07.9 Disorder of thyroid, unspecified; I10 Essential (primary) hypertension; Z79.899 Other long term (current) drug therapy; Z80.0 Family history of malignant neoplasm of digestive organs
CPT/HCPCS: 45380; 45385; 88305; J7120; J2405

== ENCOUNTER 2024-04-06 18:38 | Emergency (ER) | payer MEDICARE, MEDICAID, SELFPAY ==
[2024-04-06 18:39] VITALS: BP 155/94; PULSE 79; RESP 18; TEMP 35.8; O2SAT 100; BMI 29.8
[2024-04-06 20:29] LABS: White Blood Count 4.3 K/mm3 (4.4-11.0)
[2024-04-06 20:30] LABS: Absolute Neutrophil Count 3.1 X10^3/uL (2.0-7.7); Basophil# 0.02 X10^3/uL; Basophil% 0.5 % (0-1); Eosinophil# 0.01 X10^3/uL; Eosinophils% 0.2 % (0-5); Hematocrit 30.3 % (37-47); Hemoglobin 10.2 g/dL (12.0-15.0); Lymphocyte % 18.5 % (19-41); Mean Corp Hgb Conc 33.7 g/dL (32-36); Mean Corpuscular Hgb 34.6 pg (27.0-32.0); Mean Corpuscular Volume 102.7 fL (81-99); Mean Platelet Vol. 11.7 fl (6.2-12.0); Monocyte# 0.38 X10^3/uL; Monocyte% 8.8 % (0-10); NRBC Flagged by Analyzer 0 % (0-5); Neutrophil # 3.07 X10^3/uL (2.7-7.7); Neutrophil % 71.1 % (47-70); POSITIVE COUNT YES; RBC Distribution Width CV 14.9 % (11.6-14.6); RBC Distribution Width SD 55.3 fl (35.1-43.9); Red Blood Count 2.95 M/mm3 (4.2-5.4)
[2024-04-06 20:31] LABS: AST(SGOT) 31 U/L (15-37); Alanine Aminotransfer ALT/SGPT 26 U/L (13-56); Albumin, Serum 3.6 g/dL (3.2-5.0); Alkaline Phosphatase 132 U/L (45-117); Anion Gap 7 (5-15); BUN 25 mg/dL (7-18); BUN/Creat Ratio 27.8 RATIO (10-20); Calcium,Total 8.7 mg/dL (8.5-10.1); Chloride 108 mmol/L (98-107); EST Glomerular Filtration Rate 66 mL/min (>60); Est Glom Filt Rate - Afr Amer 79 mL/min (>60); Estimated Creatinine Clearance 48.57 ml/min; Globulin 3.5 g/dL (2.2-4.2); Glucose 141 mg/dL (74-106); Potassium 3.8 mmol/L (3.5-5.1); Protein, Total 7.1 g/dL (6.4-8.2); Sodium Level 141 mmol/L (136-145)
[2024-04-06 20:37] LABS: Platelet Count 15 K/mm3 (150-450)
[2024-04-06 20:54] LABS: Differential Indicated SCAN CRITERIA MET
[2024-04-06 21:07] LABS: Platelet Estimate MKD DEC (ADEQ)
[2024-04-06 21:12] LABS: Anisocytosis 1+; Hypochromasia 1+
[2024-04-06 22:01] VITALS: BP 145/70; PULSE 72; RESP 18; TEMP 36.4; O2SAT 96
[2024-04-07 14:46] LABS: Pathologist Review Reviewed
== END 2024-04-06 22:02 | disposition home or self-care (01) ==
PROVIDERS: Emergency Provider Emergency Medicine; PCP Family Medicine; Referring Provider Emergency Medicine; Visit Provider Emergency Medicine
DX: D69.6 Thrombocytopenia, unspecified (principal)
CPT/HCPCS: 80053; 85025; 99283; A4216

== ENCOUNTER → 2024-04-06 | Outpatient (CLI) | payer MEDICARE, MEDICAID, SELFPAY ==
[2024-04-06 17:50] LABS: Absolute Lymphocyte Count 0.94 X10^3/uL (0.83-4.51); Absolute Neutrophil Count 1.9 X10^3/uL (2.0-7.7); Basophil# 0.02 X10^3/uL; Basophil% 0.6 % (0-1); Eosinophil# 0.08 X10^3/uL; Eosinophils% 2.4 % (0-5); Hematocrit 32.2 % (37-47); Hemoglobin 10.6 g/dL (12.0-15.0); Lymphocyte # 0.94 X10^3/ul (0.83-4.51); Lymphocyte % 28.7 % (19-41); Mean Corp Hgb Conc 32.9 g/dL (32-36); Mean Corpuscular Hgb 35.1 pg (27.0-32.0); Mean Corpuscular Volume 106.6 fL (81-99); Mean Platelet Vol. 12.2 fl (6.2-12.0); Monocyte# 0.35 X10^3/uL; Monocyte% 10.7 % (0-10); NRBC Flagged by Analyzer 0 % (0-5); Neutrophil # 1.85 X10^3/uL (2.7-7.7); Neutrophil % 56.7 % (47-70); POSITIVE COUNT YES; RBC Distribution Width CV 15.6 % (11.6-14.6); RBC Distribution Width SD 61.1 fl (35.1-43.9); Red Blood Count 3.02 M/mm3 (4.2-5.4); White Blood Count 3.3 K/mm3 (4.4-11.0)
[2024-04-06 18:13] LABS: Differential Indicated SCAN CRITERIA MET; Platelet Count 11 K/mm3 (150-450)
[2024-04-06 18:30] LABS: Vitamin D,25 Hydroxy 50.4 ng/mL
[2024-04-06 20:21] LABS: Anisocytosis 1+; Hypochromasia 1+; Platelet Estimate MKD DEC (ADEQ); Polychromasia RARE
[2024-04-07 14:46] LABS: Pathologist Review Reviewed
== END | disposition home or self-care (01) ==
LOC: BFHLAB 14:46
PROVIDERS: PCP Family Medicine; Referring Provider Family Medicine; Visit Provider Family Medicine
DX: D69.6 Thrombocytopenia, unspecified (principal); E03.9 Hypothyroidism, unspecified; M81.0 Age-related osteoporosis without current pathological fracture
CPT/HCPCS: 36415; 82306; 84443; 85025

== ENCOUNTER → 2024-04-07 | Outpatient (CLI) | payer MEDICARE, MEDICAID, SELFPAY ==
[2024-04-07 17:53] LABS: Absolute Lymphocyte Count 1.02 X10^3/uL (0.83-4.51); Basophil# 0.02 X10^3/uL; Basophil% 0.6 % (0-1); Eosinophil# 0.02 X10^3/uL; Eosinophils% 0.6 % (0-5); Hemoglobin 9.8 g/dL (12.0-15.0); Lymphocyte # 1.02 X10^3/ul (0.83-4.51); Lymphocyte % 29.2 % (19-41); Mean Corp Hgb Conc 33.8 g/dL (32-36); Mean Corpuscular Volume 103.6 fL (81-99); Monocyte# 0.36 X10^3/uL; Monocyte% 10.3 % (0-10); NRBC Flagged by Analyzer 0 % (0-5); Neutrophil # 2.04 X10^3/uL (2.7-7.7); Neutrophil % 58.4 % (47-70); POSITIVE COUNT YES; RBC Distribution Width CV 14.8 % (11.6-14.6); RBC Distribution Width SD 56.2 fl (35.1-43.9); White Blood Count 3.5 K/mm3 (4.4-11.0)
[2024-04-07 18:01] LABS: Differential Indicated SCAN CRITERIA MET; Platelet Count 13 K/mm3 (150-450)
[2024-04-07 18:47] LABS: Differential Comment SCANNED
[2024-04-07 18:48] LABS: Hypochromasia 1+; Polychromasia RARE
[2024-04-10 14:22] LABS: Pathologist Review Reviewed
== END | disposition home or self-care (01) ==
PROVIDERS: PCP Family Medicine; Referring Provider Family Medicine; Visit Provider Family Medicine
DX: D69.6 Thrombocytopenia, unspecified (principal)
CPT/HCPCS: 36415; 85025

== ENCOUNTER 2024-04-14 07:50 | Outpatient (CLI) | payer MEDICARE, MEDICAID, SELFPAY ==
[2024-04-14] VITALS (13 sets, daily range): BP systolic 107–148; BP diastolic 52–94; PULSE 63–78; RESP 15–18; TEMP 36.5; O2SAT 94–100; BMI 43.7
--- NOTE | 2024-04-14 08:10 | CT_ITS ---
PROCEDURE: CT GUIDED bone marrow biopsy of the right posterior iliac bone. DATE: April 14, 2024. INDICATION: Female, 73 years old. Thrombocytopenia. PHYSICIAN: Tim Jo M.D. RADIATION DOSAGE (If Supplied By Facility): CTDIvol = ( 19.6 ) mGy, DLP = ( 303.38 ) mGycm. Individualized dose optimization techniques were utilized. PROCEDURE: The risks, benefits, and alternatives to the procedure were explained to the patient. The specific risk of hemorrhage requiring further treatment or intervention was detailed and accepted. Follow-up instructions were discussed with the patient as well. Written informed consent was obtained. The patient was brought into the CT suite and placed in the prone position. . An appropriate entry site was identified. The overlying skin was prepped and draped in the usual sterile fashion. 1% lidocaine was administered subcutaneously for local anesthesia. Conscious sedation was performed. The patient received 2 mg of Versed and 50 mcg of fentanyl intravenously. Conscious sedation was started at 9:12 AM and terminated at 9:34 AM. The patient was monitored by the department nurse. Under CT guidance, a bone marrow biopsy and aspiration were performed utilizing an 11-gauge core biopsy needle system. The specimens were then placed in transported to the laboratory for analysis. Hemostasis was obtained. The patient tolerated the procedure well without immediate complications. CT/Biopsy/Inj or Needle Placement IMPRESSION: Successful CT guided bone marrow biopsy and aspiration of the posterior right iliac bone, as described above. Conscious sedation protocol was followed. Electronically Signed: Tim Jo MD at 10:12 [facility] ,
[2024-04-14 08:48] LABS: Prothrombin Time (Protime)PT. 12.8 SECONDS (11.7-14.9)
[2024-04-14 08:49] LABS: Partial Thromboplast Time 25.7 Seconds (24.1-36.2)
[2024-04-14 08:53] LABS: Vitamin B12 679 pg/mL (211-911)
[2024-04-14 09:00] LABS: AST(SGOT) 26 U/L (15-37); Alanine Aminotransfer ALT/SGPT 18 U/L (13-56); Albumin, Serum 3.5 g/dL (3.2-5.0); Alkaline Phosphatase 115 U/L (45-117); Anion Gap 1 (5-15); BUN 21 mg/dL (7-18); BUN/Creat Ratio 27.9 RATIO (10-20); Calcium,Total 8.8 mg/dL (8.5-10.1); Chloride 109 mmol/L (98-107); Creatinine, Serum 0.75 mg/dL (0.55-1.02); EST Glomerular Filtration Rate 80 mL/min (>60); Est Glom Filt Rate - Afr Amer 97 mL/min (>60); Estimated Creatinine Clearance 54.77 ml/min; Globulin 3.6 g/dL (2.2-4.2); Glucose 101 mg/dL (74-106); Iron 118 ug/dL (50-170); Iron Binding Capacity,Total 294 ug/dL (250-450); PERCENT IRON SATURATION 40.1 % (15.0-55.0); Potassium 3.8 mmol/L (3.5-5.1); Protein, Total 7.1 g/dL (6.4-8.2); Sodium Level 141 mmol/L (136-145)
--- NOTE | 2024-04-14 09:00 | BMB_PTH ---
PATIENT: LEWIS CASTILLO LOC: CT U#:[id number] AGE/SX: 73/F ROOM: RE04/14/[address]: Dr. Apolinar Pedraza MD : 1950 BED: DIS: 04/14/2024 SPEC #: [id number] RECD: 04/14/24 09:30 STATUS: ANAMARIA REMala #: [id number] DONTAE: 04/14/24 09:[address]: Apolinar Pedraza DEPT: BONE MARROW RECD BY: Jaz Martin ENTERED: 04/14/24 10:11 SP TYPE: BMB NINO DR: Dr. Everett Ruelas DO Tissues: A - Bone marrow, NOS B - Bone marrow, NOS C - Bone marrow, NOS Procedures: Decalcification bone/plaque Bone Marrow Aspiration Bone Marrow Core Biopsy Iron Stain Bone Marrow HEADER OPERATION: CT guided bone marrow biopsy PRE-OP DIAGNOSIS: Pancytopenia TISSUE SUBMITTED: A - Core, B - Clot, C - Smears, and send outs (flow, cytogenetics) BONE MARROW DIAGNOSIS Bone marrow core, clot and aspirate smears: Nondiagnostic bone marrow core, clot and aspirate smears. Flow cytometry studies form [facility] show no significant immunophenotypic abnormality. See joseph. 04/19/2024 COMMENT Bone marrow biopsy consists of fragments of bone and fibroconnective tissue, bone marrow aspirate clot and aspirate smears consist of peripheral blood. Hematopoietic cells are not identified. [facility] shows no monoclonal B cell population detected. [place]:lambda - ratio 1.0. CD4:CD8 ratio- 1.8 There is no loss of/or aberrant expression of the zambrano T cell antigens to suggest a neoplastic T cell process. No circulating blasts are detected. There is no immunophenotypic evidence of abnormal myeloid maturation. MDS and FISH studies are pending. Clinical correlation and appropriate follow-up are necessary. BONE MARROW STUDY Slides are reviewed. CBC DATE: 04/14/2024 WBC 3.2; RBC 2.88; HGB 10.1; HCT 29.8; MCV 103.5; RDW 14.8; PLTS 9,000 SEGS 56.1%; LYMPHS 30.0%; MONOS 10.2%; EOS 1.9%; BASOS 0.6%, immature granulocyte: 1.2 PERIPHERAL SMEAR: Submitted. Pancytopenia. RBC: Macrocytic anemia WBC: Leukopenia and neutropenia. The WBC count is compatible to as reported above. PLTS: Markedly decreased. BONE MARROW ASPIRATE DIFFERENTIAL: Not performed ASPIRATE FINDINGS: Site: Not specified Aspicular/ Acellular Comment: This specimen entirely consists of peripheral blood. All the submitted smears are examined. Hematopoietic cells are not seen. CORE BIOPSY FINDINGS: Site: Not specified Adequacy: Non-diagnostic Comment: This specimen entirely consists of fragments of bone and fibroconnective tissue. Hematopoietic cells are not identified. ASPIRATE CLOT FINDINGS: Not performed Site: Not specified Comment: This specimen entirely consists of peripheral blood. Hematopoietic cells are not identified. SPECIAL STAINS WITH MATCHED CONTROLS: Noncontributory. Smears show marked hemodilution. Hematopoietic cells are not identified. BONE MARROW GROSS A - Received is a container labeled with the patient's name and not further designated. The specimen consists of multiple fragments of herrera bone measuring in aggregate 1.0 x 0.1 x 0.1cm. The specimen is totally submitted in one cassette after decalcification. B - Received labeled with the patient's name and designated Bone marrow clot is a specimen that consists of approximately 3.0 ml of bloody fluid that on filtration yields multiple minute fragments of blood clots measuring in aggregate 2.5 x 0.6 x 0.1cm. The specimen is totally submitted in one cassette. C - Also received are 10 unstained and 1 peripheral stained slide. The unstained slides are submitted for appropriate staining. Also received are 2 green top tubes which are sent to our reference lab for MDS, AML, Fish, Cytogenetics. / TC: 04/14/2024 TC: Can not code CPT: 83497, 68458, 15085 x2, 01614 x3, 28966 ADDENDUM ADDENDUM ADDENDUM ADDENDUM ADDENDUM ADDENDUM ADDENDUM ADDENDUM ADDENDUM ADDENDUM ADDENDUM ADDENDUM ADDENDUM ADDENDUM ADDENDUM ADDENDUM ADDENDUM ADDENDUM ADDENDUM ADDENDUM ADDENDUM ADDENDUM ADDENDUM ADDENDUM 05/04/2024 10:21 ADDENDUM 05/04/2024 10:21 ADDENDUM 05/04/2024 10:21 ADDENDUM 05/04/2024 10:21 ADDENDUM 05/04/2024 10:21 CYTOGENETICS REPORT FROM [facility] CYTOGENETIC RESULT: 46,XX(7) INTERPRETATION: Normal female karyotype was observed in twenty metaphases analyzed. AML FISH PANEL FISH RESULT: Normal AML panel INTERPRETATION: NEGATIVE MDS FISH PANEL FISH RESULT: Normal MDS panel INTERPRETATION: 5q: Normal 7q: Normal 8q: Normal 20q: Normal Please see complete report in e-chart or EMR
[2024-04-14 09:05] LABS: Erythrocyte Sedimentation Rate 15 mm/hr (0-30); Ferritin 165 ng/mL (8-252); LDH 362 U/L (84-246); Phosphorus 3.2 mg/dL (2.5-4.9)
[2024-04-14] MEDS: Midazolam 2 MG/2 ML Syringe IV ×2 (09:12→09:23)
[2024-04-14] MEDS: fentaNYL 100 MCG/2 ML Ampul IV ×2 (09:14→09:24)
[2024-04-14 09:16] LABS: Absolute Lymphocyte Count 0.97 X10^3/uL (0.83-4.51); Absolute Neutrophil Count 1.8 X10^3/uL (2.0-7.7); Basophil# 0.02 X10^3/uL; Basophil% 0.6 % (0-1); Eosinophil# 0.06 X10^3/uL; Eosinophils% 1.9 % (0-5); Hematocrit 29.8 % (37-47); Hemoglobin 10.1 g/dL (12.0-15.0); Immature Platelet Fraction 6.7 % (1.0-7.9); Lymphocyte # 0.97 X10^3/ul (0.83-4.51); Mean Corp Hgb Conc 33.9 g/dL (32-36); Mean Corpuscular Hgb 35.1 pg (27.0-32.0); Mean Corpuscular Volume 103.5 fL (81-99); Monocyte# 0.33 X10^3/uL; Monocyte% 10.2 % (0-10); NRBC Flagged by Analyzer 0 % (0-5); Neutrophil # 1.81 X10^3/uL (2.7-7.7); Neutrophil % 56.1 % (47-70); POSITIVE COUNT YES; Platelet Count 9 K/mm3 (150-450); RBC Distribution Width CV 14.8 % (11.6-14.6); RBC Distribution Width SD 55.4 fl (35.1-43.9); RET-HE 35.1 pg (30-35); Red Blood Count 2.88 M/mm3 (4.2-5.4); White Blood Count 3.2 K/mm3 (4.4-11.0)
[2024-04-14 09:21] LABS: Differential Indicated SCAN CRITERIA MET; Platelet Count 9 K/mm3 (150-450)
[2024-04-14] MEDS: Lidocaine 2% (20 ml mdv) 20 ML Vial INFILT (09:28)
[2024-04-14 10:47] LABS: Atypical Lymphocyte 1+ %; Platelet Estimate MKD DEC (ADEQ)
[2024-04-14 10:48] LABS: Anisocytosis 2+; Macrocytosis 1+; Ovalocyte 2+; Polychromasia 1+; Schistocytes RARE; Tear Drop Cell RARE
[2024-04-17 14:06] LABS: Pathologist Review Reviewed
[2024-04-17 15:08] LABS: Erythropoietin 110.4 mIU/mL (2.6-18.5)
[2024-05-12 11:13] LABS: Miscellaneous Lab Procedure SEE PATHOLOGY REPORT; Miscellaneous Lab Procedure 2 SEE PATHOLOGY REPORT
== END 2024-04-14 23:59 | disposition home or self-care (01) ==
PROVIDERS: PCP Family Medicine; Referring Provider Internal Medicine Medical Oncology; Visit Provider Internal Medicine Medical Oncology
DX: Z01.818 Encounter for other preprocedural examination (principal); D61.818 Other pancytopenia
CPT/HCPCS: 20220; 36415; 77012; 80053; 82607; 82668; 82728; 82746; 83540; 83550; 83615; 83735; 84100; 85025; 85045; 85610; 85652; 85730; 86140; 88305; 88311; 88313; 99156; A4216

== ENCOUNTER 2024-04-25 12:28 | Inpatient (IN) | payer MEDICARE, MEDICAID, SELFPAY ==
[2024-04-25] VITALS (13 sets, daily range): BP systolic 104–143; BP diastolic 50–74; PULSE 69–96; RESP 16–25; TEMP 36.1–37.2; O2SAT 94–99; BMI 45.1; BMI 42.7
[2024-04-25 13:09] LABS: Anion Gap 5 (5-15); BUN 25 mg/dL (7-18); BUN/Creat Ratio 28.1 RATIO (10-20); Calcium,Total 8.2 mg/dL (8.5-10.1); Chloride 110 mmol/L (98-107); Creatinine, Serum 0.89 mg/dL (0.55-1.02); EST Glomerular Filtration Rate 66 mL/min (>60); Est Glom Filt Rate - Afr Amer 80 mL/min (>60); Glucose 94 mg/dL (74-106); Potassium 3.9 mmol/L (3.5-5.1); Sodium Level 141 mmol/L (136-145)
[2024-04-25 13:11] LABS: Absolute Lymphocyte Count 0.99 X10^3/uL (0.83-4.51); Absolute Neutrophil Count 3.2 X10^3/uL (2.0-7.7); Basophil# 0.01 X10^3/uL; Basophil% 0.2 % (0-1); Eosinophil# 0.02 X10^3/uL; Eosinophils% 0.4 % (0-5); Hemoglobin 7.9 g/dL (12.0-15.0); Lymphocyte # 0.99 X10^3/ul (0.83-4.51); Mean Corp Hgb Conc 32.9 g/dL (32-36); Mean Corpuscular Hgb 34.8 pg (27.0-32.0); Mean Corpuscular Volume 105.7 fL (81-99); Monocyte# 0.45 X10^3/uL; Monocyte% 9.5 % (0-10); NRBC Flagged by Analyzer 0.4 % (0-5); Neutrophil # 3.21 X10^3/uL (2.7-7.7); Neutrophil % 68.1 % (47-70); POSITIVE COUNT YES; RBC Distribution Width CV 15.8 % (11.6-14.6); RBC Distribution Width SD 59.8 fl (35.1-43.9); Red Blood Count 2.27 M/mm3 (4.2-5.4); White Blood Count 4.7 K/mm3 (4.4-11.0)
[2024-04-25 13:15] LABS: Differential Indicated SCAN CRITERIA MET; Platelet Count < 2 K/mm3 (150-450)
[2024-04-25 13:25] LABS: Prothrombin Time (Protime)PT. 13.2 SECONDS (11.7-14.9)
--- NOTE | 2024-04-25 13:32 | EDS_ITS ---
HPI History of Present Illness Chief Complaint: Abn Labs [facility] Medical History Microcephaly Thyroid disease Bladder disease Easy bruising Seizures Non-smoker History of echocardiogram Hypertension Cardiology follow-up encounter Recurrent UTI (urinary tract infection) History of colon polyps Osteoporosis of lumbar spine Needle phobia Chronic sinusitis Thrombocytopenia Anemia Psoriasis of scalp Allergic rhinitis Left ventricular systolic dysfunction Hypothyroidism Nonischemic cardiomyopathy facial Erysipelas Seizure disorder Developmental disability Multinodular goiter LBBB (left bundle branch block) Hyperlipidemia Home Medications ?Medication ?Instructions ?Recorded ?Last Taken ?Type ramipril 2.5 mg tablet 2.5 mg PO QDAY blood pressure 11/15/17 04/10/18 08:00 History 2.5mg spironolactone 25 mg tablet 25 mg PO QDAY 25mg 11/15/17 04/10/18 08:00 History 25 mg phenytoin sodium extended 100 mg 100 mg PO BID seizures 11/16/17 08/02/23 07:30 History capsule (Dilantin Extended) metoprolol succinate 25 mg 25 mg PO BID 11/17/18 08/02/23 07:30 History tablet,extended release 24 hr acetaminophen 325 mg capsule 650 mg PO BID PRN Fever 01/26/20 Unknown History (Tylenol) sunscreen SPF 60 lotion 1 ea topical PRN 01/26/20 Unknown History denosumab 60 mg/mL subcutaneous 60 mg subcut [id number] 02/09/23 Unknown History syringe (Prolia) handicap placcard #1 ea 02/09/23 Unknown Rx cholecalciferol (vitamin D3) 50 50 mcg PO DAILY 07/23/23 Unknown History mcg (2,000 unit) capsule (D3-2000) levothyroxine 100 mcg tablet 100 mcg PO DAILY 02/16/24 Unknown History nitrofurantoin 1 cap PO DAILY 02/16/24 Unknown History monohydrate/macrocrystals 100 mg capsule Allergy/AdvReac Type Severity Reaction Status Date / Time clindamycin Allergy Mild rash Verified 04/25/24 12:32 Family History Father TIA (transient ischemic attack) Colon cancer Mother Cancer brain Surgical History History of nasal surgery Hx of colonoscopy Hx of nasal polypectomy History of left heart catheterization (11/2007) History of foot surgery History of thyroidectomy Social History household members: other details: Residential living current occupational status: retired current occupation: Retired from [employer] Smoking Status: Never smoker alcohol intake: never substance use type: does not use additional social history: Has Legal Guardian and Provider EXAM Physical Exam Const Vital Signs: 04/25/24 12:29 04/25/24 12:32 04/25/24 12:51 Temperature 97 F L 98.3 F Temperature Source Temporal Temporal Pulse Rate 69 96 Respiratory Rate 16 18 Respiratory Effort Normal Non-Labored Respiratory Pattern Normal Blood Pressure 104/71 121/71 H Blood Pressure Mean 82 87 Pulse Ox 98 98 Oxygen Delivery Method Room Air Room Air 04/25/24 13:32 04/25/24 14:00 04/25/24 15:00 Temperature 97.6 F L 97.6 F L 97.6 F L Temperature Source Temporal Temporal Temporal Pulse Rate 69 70 71 Respiratory Rate 17 18 25 H Respiratory Effort Respiratory Pattern Blood Pressure 127/52 H 119/61 109/68 Blood Pressure Mean 77 80 81 Pulse Ox 98 98 98 Oxygen Delivery Method Room Air Room Air Room Air 04/25/24 15:29 Temperature 98.9 F Temperature Source Pulse Rate 75 Respiratory Rate 23 H Respiratory Effort Respiratory Pattern Blood Pressure 104/62 Blood Pressure Mean 76 Pulse Ox 99 Oxygen Delivery Method [facility] MDM MDM Narrative Medical decision making narrative: HISTORY OF PRESENT ILLNESS: 73-year-old female presents concern for low platelet count. Sent in by her oncologist Dr. Pedraza. He stated patient has a platelet count of 2 and he is c oncerned that she may need a platelet transfusion and Decadron. The patient states she has no symptoms. REVIEW OF SYSTEMS: Difficult to obtain review of systems secondary to patient's underlying de velopmental disability PHYSICAL EXAM: Nursing triage notes reviewed, Vital signs reviewed Constitutional: please see mdm HENT: MMM Eyes: Pupils equal round and reactive to light, Extraocular muscles intact Neck: No stridor, no JVD, full neck ROM Lungs: Clear to auscultation, No wheezing or rales. No increased work of breathing, no conversational dyspnea, no accessory muscle use, no nasal flaring. No respiratory distress noted Heart: Regular rate and rhythm, No murmurs, No rubs and No gallops, 2+ distal pulses (radial, femoral, posterior tibial) in all extremities Abdomen: Soft, there is no tenderness, rigidity, rebound or guarding, no obvious peritoneal signs, no palpable pulsatile abdominal masses, no auscultated abdominal bruit : No CVAT Extremities: No edema Neuro: No focal neurological deficits, cranial nerves II through XII intact, 5/5 strength in all extremities. Intact sensation to light touch in all extremities, 2+ reflexes bilateral patella tendons. Skin: Scattered ecchymoses/petechiae noted specifically in the lower extremities MEDICAL DECISION MAKING: Chief Complaint: Low platelet External records reviewed: Reviewed prior advanced imaging of the brain Factors affecting care: Hyperlipidemia, thrombocytopenia Social determinants of health: none History obtained from others: none Consults: Oncology (Dr. Pedraza), Internal medicine (Dr. Galan) MDM Narrative: Patient was hemodynamically stable, afebrile and nontoxic-appearing. Exam with lower extremity petechiae otherwise no obvious focal deficits although exam and history are limited secondary to patient history of mental disability. I considered the following differential diagnosis: ICH, significant anemia ALL IMAGES (IF OBTAINED) HAVE BEEN PERSONALLY REVIEWED AND INTERPRETED BY MYSELF. CT scan of the brain was negative CBC with no leukocytosis, noted severe anemia consistent with prior, noted very severe thrombocytopenia No coagulopathy BMP without evidence of significant electrolyte abnormalities, no anion gap, no acute kidney injury. I gave 1 unit (6 pack) of platelets, 40 mg of IV Decadron given the patient's abdominal disability, severe thrombocytopenia she was admitted for observation. Discussed with Dr. Galan The patient and/or family, caregivers express understanding. The patient and/or family, caregivers agrees with the plan. Shared decision making: I will have a discussion with the patient and or visitors regarding risk/benefits of further testing or admission. They will be made aware of of the risk/benefits inherent in this decision they will be given the opportunity to voice understanding. Total critical care time today provided was at least 0 minutes. This excludes separately billable procedures. Critical care time (if documented) is secondary to the patient having high probability of clinically significant/life threatening deterioration in the patient's condition which required my urgent intervention. Impression: 1. Acute thrombocytopenia 2. ITP Dispo: Admit This note was generated with Dragon dictation software. It may contain incorrect words, spelling, and punctuation that were not noted in review of the chart prior to signing. Lab Data Labs: Laboratory Results - last 24 hr 04/25/24 12:47 WBC 4.7 RBC 2.27 L Hgb 7.9 L Hct 24.0 L MCV 105.7 H MCH 34.8 H MCHC 32.9 RDW Std Deviation 59.8 H RDW Coeff of Marichuy 15.8 H Plt Count < 2 L* Immature Gran % (Auto) 0.800 Neut % (Auto) 68.1 Lymph % (Auto) 21.0 Emmet % (Auto) 9.5 Eos % (Auto) 0.4 Baso % (Auto) 0.2 Absolute Neuts (auto) 3.2 Absolute Lymphs (auto) 0.99 Nucleated RBC % 0.4 Differential Comment SCANNED Diff Path Review May foll Platelet Estimate MKD APR PT 13.2 INR 1.0 APTT 23.0 L Sodium 141 Potassium 3.9 Chloride 110 H Carbon Dioxide 26.0 Anion Gap 5 BUN 25 H Creatinine 0.89 Est GFR (MDRD) Af Amer 80 Est GFR (MDRD) Non-Af 66 BUN/Creatinine Ratio 28.1 H Glucose 94 Calcium 8.2 L Blood Type B NEGATIVE Antibody Screen NEGATIVE Radiography Diagnostic Testing: Clinical Impression(s) from Imaging Studies Brain CT 04/25/24 13:37 IMPRESSION: Age consistent senescent changes, no acute hemorrhage Electronically Signed: Ellis Ball MD at 14:41 EST Reading Location ID and State: [address] [place] [address] , Service support , Discharge Plan Triage Chief Complaint: Abn Labs ED Provider: Evgeny Lara Dx/Rx/DC Orders Prescriptions: No Action spironolactone 25 mg tablet 25 mg PO QDAY ramipril 2.5 mg tablet 2.5 mg PO QDAY phenytoin sodium extended [Dilantin Extended] 100 mg capsule 100 mg PO BID metoprolol succinate 25 mg tablet extended release 24 hr 25 mg PO BID acetaminophen [Tylenol] 325 mg capsule 650 mg PO BID PRN (Reason: Fever) sunscreen SPF 60 lotion 1 ea TOPICAL PRN Prolia 60 mg/mL syringe 60 mg subcut [id number] (DME) handicap placcard See Rx Instructions .Route .MEDSUPPLY Qty: 1 0RF Rx Instructions: Dx: debility Exp: 01/2028 cholecalciferol (vitamin D3) [D3-1999] 50 mcg (2,000 unit) capsule 50 mcg PO DAILY levothyroxine 100 mcg tablet 100 mcg PO DAILY nitrofurantoin monohyd/m-cryst 100 mg capsule 1 cap PO DAILY Primary Care Provider: Everett Ruelas Referrals: Everett Ruelas, [Primary Care Provider] - Print Language: Angolan
--- NOTE | 2024-04-25 13:37 | CT_ITS ---
STUDY: CT BRAIN WITHOUT CONTRAST REASON FOR EXAM: Female, 73 years old. Headache RADIATION DOSAGE (If Supplied By Facility): CTDIvol = ( 47.06 ) mGy, DLP = ( 819.74 ) mGycm TECHNIQUE: Transaxial CT imaging of the brain was performed without administration of intravenous contrast material. Individualized dose optimization techniques were used for this CT. COMPARISON: No relevant priors. FINDINGS: Normal soft tissue structures. Normal calvarium. Normal size ventricles and extra-axial spaces for the patient''s age. Normal white matter tracts of the cerebral hemispheres. Normal basal ganglia and thalami. Normal brainstem. Normal cerebellum. There is no intracranial hemorrhage. There are no findings of an acute ischemic infarction. Normal visualized paranasal sinuses. CT/Brain/Head without Contrast IMPRESSION: Age consistent senescent changes, no acute hemorrhage Electronically Signed: Ellis Ball MD at 14:41 EST ,
[2024-04-25 13:55] LABS: Differential Comment SCANNED; Platelet Estimate MKD DEC (ADEQ)
--- NOTE | 2024-04-25 15:08 | PCM.HP.STD ---
HPI - General General Date of Admission: 04/25/24 Date of Service: 04/25/24 Chief Complaint: Low plts, referred per Hem/Onc HPI Narrative The patient is a 73 y/o F w/ PMHx: Microcephaly with underlying developmental debility, CKD stage II suspected based on prior GFR trending, HTN, HLD, Hypothyroidism, Morbid obesity, Seizure disorder, Nonischemic cardiomyopathy, Chronic pancytopenia following with Hem/Onc who presents to the [facility] ED on 04/25/24 per oncology recommendation with platelets less than 20,000 with no recent episodes of any bleeding with recent bone marrow biopsy with no acute findings although cytogenics pending with only recent development in antecubital and posterior fossa knee rash with oncology recommended platelet transfusion and consideration of Decadron versus IVIG. Patient brother and his were present note that she has been in normal state of health aside from frequent bruising. Patient brother and his also note that patient has been on phenytoin for several decades and has no breakthrough seizure history at all. Workup in the ED included T97, heart rate 69, BP 104/71, respiratory rate 16, 98% room air with most recent repeat vitals T97.6, heart rate 69, BP 127/52, respiratory rate 17, 98% room air, CBC with WBC 4.7, hemoglobin 7.9, MCV 105.7, platelet less than 2 without any shift, coags with PTT 23 otherwise not marked appearing, BMP with chloride 110, BUN/creatinine 25/0.89, GFR 66, calcium 8.2, CT of the brain with age consistent senescent changes with no acute intracranial findings otherwise. ED initiated 6 units of platelets. [facility] Medical History Microcephaly Thyroid disease Bladder disease Easy bruising Seizures Non-smoker History of echocardiogram Hypertension Cardiology follow-up encounter Recurrent UTI (urinary tract infection) History of colon polyps Osteoporosis of lumbar spine Needle phobia Chronic sinusitis Thrombocytopenia Anemia Psoriasis of scalp Allergic rhinitis Left ventricular systolic dysfunction Hypothyroidism Nonischemic cardiomyopathy facial Erysipelas Seizure disorder Developmental disability Multinodular goiter LBBB (left bundle branch block) Hyperlipidemia Home Medications ?Medication ?Instructions ?Recorded ?Last Taken ?Type ramipril 2.5 mg tablet 2.5 mg PO QDAY blood pressure 11/15/17 04/10/18 08:00 History 2.5mg spironolactone 25 mg tablet 25 mg PO QDAY 25mg 11/15/17 04/10/18 08:00 History 25 mg phenytoin sodium extended 100 mg 100 mg PO BID seizures 11/16/17 08/02/23 07:30 History capsule (Dilantin Extended) metoprolol succinate 25 mg 25 mg PO BID 11/17/18 08/02/23 07:30 History tablet,extended release 24 hr acetaminophen 325 mg capsule 650 mg PO BID PRN Fever 01/26/20 Unknown History (Tylenol) sunscreen SPF 60 lotion 1 ea topical PRN 01/26/20 Unknown History denosumab 60 mg/mL subcutaneous 60 mg subcut [id number] 02/09/23 Unknown History syringe (Prolia) handicap placcard #1 ea 02/09/23 Unknown Rx cholecalciferol (vitamin D3) 50 50 mcg PO DAILY 07/23/23 Unknown History mcg (2,000 unit) capsule (D3-1999) levothyroxine 100 mcg tablet 100 mcg PO DAILY 02/16/24 Unknown History nitrofurantoin 1 cap PO DAILY 02/16/24 Unknown History monohydrate/macrocrystals 100 mg capsule Allergy/AdvReac Type Severity Reaction Status Date / Time clindamycin Allergy Mild rash Verified 04/25/24 12:32 Family History Father TIA (transient ischemic attack) Colon cancer Mother Cancer brain Surgical History History of nasal surgery Hx of colonoscopy Hx of nasal polypectomy History of left heart catheterization (11/2007) History of foot surgery History of thyroidectomy Social History household members: other details: Residential living current occupational status: retired current occupation: Retired from [employer] Smoking Status: Never smoker alcohol intake: never substance use type: does not use additional social history: Has Legal Guardian and Provider IVAN LOVE Narrative Admission Review of Systems: CONSTITUTIONAL: No weight loss, fever, chills, + weakness or fatigue. HEENT: Eyes: No visual loss, blurred vision, double vision or yellow sclerae. Ears, Nose, Throat: No hearing loss, sneezing, congestion, runny nose or sore throat. SKIN: No rash or itching, lesions, wounds except + significant various staged ecchymoses as well as atopic dermatitis to the antecubital fossa and also behind the knees. CARDIOVASCULAR: No chest pain, chest pressure or chest discomfort, palpitations, edema, orthopnea, syncopal events. RESPIRATORY: No shortness of breath, cough or sputum, wheezing, hemoptysis. GASTROINTESTINAL: No anorexia, nausea, vomiting or diarrhea, abdominal pain, melena, BRBPR. GENITOURINARY: No dysuria, frequency, urgency or retention. NEUROLOGICAL: + Underlying microcephaly with chronic underlying developmental debility, seizure disorder. No headache, dizziness, syncope, paralysis, ataxia, numbness or tingling in the extremities, focal weakness, change in bowel or bladder control. MUSCULOSKELETAL: + muscle, back pain, joint pain or stiffness. HEMATOLOGIC: + Chronic anemia, easy bleeding/bruising. LYMPHATICS: No enlarged nodes. No history of splenectomy. PSYCHIATRIC: No history of depression or anxiety. ENDOCRINOLOGIC: No reports of sweating, cold or heat intolerance. No polyuria or polydipsia. ALLERGIES: No history of asthma, hives, eczema or rhinitis. Vital Signs Vital Signs Vital Signs: 04/25/24 12:29 04/25/24 12:32 04/25/24 12:51 Temperature 97 F L 98.3 F Temperature Source Temporal Temporal Pulse Rate 69 96 Respiratory Rate 16 18 Respiratory Effort Normal Non-Labored Respiratory Pattern Normal Blood Pressure 104/71 121/71 H Blood Pressure Mean 82 87 Pulse Ox 98 98 Oxygen Delivery Method Room Air Room Air 04/25/24 13:32 04/25/24 14:00 04/25/24 15:00 Temperature 97.6 F L 97.6 F L 97.6 F L Temperature Source Temporal Temporal Temporal Pulse Rate 69 70 71 Respiratory Rate 17 18 25 H Respiratory Effort Respiratory Pattern Blood Pressure 127/52 H 119/61 109/68 Blood Pressure Mean 77 80 81 Pulse Ox 98 98 98 Oxygen Delivery Method Room Air Room Air Room Air Weight Weight: 150 lb 12.739 oz Body Mass Index (BMI) 45.1 Physical Exam Narrative Physical Examination: General: Awake, alert, oriented to self, place and some recent events, able to carry on a conversation but significant more detailed information is not understood and primarily discussed status and situation with her guardian who is present, remains cooperative, seated upright in the ED bed, denies any complaints at this time. Skin: Normal color, normal turgor, no icterus, no cyanosis except significant very staged ecchymoses to the extremities primarily, very mild evidence of atopic dermatitis to the acute L fosses and behind the knees as well as petechiae especially to the lower distal extremities. HEENT: AT/NC, EOMI, PERRLA, MMM, extremely poor dentition, no carotid bruits or JVD noted. Lungs: Mildly diminished, greater bases, appropriate effort, no rales, ronchi or wheezing. Heart: Regular rate and rhythm; no gallop, rub audible. Abdomen: Soft, morbidly obese, NTTP, ND, normal BS, no appreciated HSM. Extremities: No cyanosis, no marked clubbing, bilateral pedal to distal ankle not markedly pitting edema, see skin. Neurological: Patient awake, alert, oriented as noted, cognitive function decreased baseline with underlying to developmental disability, currently per discussion with guardian baseline intact; pupils equally reactive to light and accommodation, cranial nerves grossly normal, moving all 4 extremities, no focal deficits, strength mildly to moderately global decreased. Psychiatric: Affect appears fatigued, mildly flat which per discussion is baseline, no acute evidence of depressive or anxiety feelings. Results Lab / Micro Data 04/25/24 12:47 04/25/24 12:47 Labs: Laboratory Results - last 24 hr 04/25/24 12:47: WBC 4.7, RBC 2.27 L, Hgb 7.9 L, Hct 24.0 L, MCV 105.7 H, MCH 34.8 H, MCHC 32.9, RDW Std Deviation 59.8 H, RDW Coeff of Marichuy 15.8 H, Plt Count < 2 L*, Immature Gran % (Auto) 0.800, Neut % (Auto) 68.1, Lymph % (Auto) 21.0, Tyrrell % (Auto) 9.5, Eos % (Auto) 0.4, Baso % (Auto) 0.2, Absolute Neuts (auto) 3.2, Absolute Lymphs (auto) 0.99, Nucleated RBC % 0.4, Differential Comment SCANNED, Diff Path Review September rubén, Platelet Estimate MKD DEC, PT 13.2, INR 1.0, APTT 23.0 L, Sodium 141, Potassium 3.9, Chloride 110 H, Carbon Dioxide 26.0, Anion Gap 5, BUN 25 H, Creatinine 0.89, Est GFR (MDRD) Af Amer 80, Est GFR (MDRD) Non-Af 66, BUN/Creatinine Ratio 28.1 H, Glucose 94, Calcium 8.2 L, Blood Type B NEGATIVE, Antibody Screen NEGATIVE Imaging Radiology Impression Brain CT 04/25/24 13:37 IMPRESSION: Age consistent senescent changes, no acute hemorrhage Electronically Signed: Ellis Ball MD at 14:41 EST Reading Location ID and State: [address] [place] [address] , Service support , Assessment & Plan Assessment/Plan (1) Acute ITP: PLAN: Plan The patient is a 73 y/o F w/ PMHx: Microcephaly with underlying developmental debility, CKD stage II suspected based on prior GFR trending, HTN, HLD, Hypothyroidism, Morbid obesity, Seizure disorder, Nonischemic cardiomyopathy, Chronic pancytopenia following with Hem/Onc who presents to the [facility] ED on 04/25/24 per oncology recommendation with platelets less than 20,000 with no recent episodes of any bleeding with recent bone marrow biopsy with no acute findings although cytogenics pending with only recent development in antecubital and posterior fossa knee rash with oncology recommended platelet transfusion and consideration of Decadron versus IVIG. #1. Acute immune thrombocytopenia with underlying chronic pancytopenia, ongoing outpatient evaluation: From review of records patient following with oncology with most recent evaluation on day of presentation with noted recent bone marrow aspiration biopsy 04/14/2024 which is unfortunately diagnostic however there still pending cytogenetics thus unclear specific etiology. Will admit to medical surgical floor, maintain on fall precautions, limit significant procedures given significant thrombocytopenia, given no significant active bleeding will pursue platelet transfusion as well as initiation of dexamethasone 40 mg IV once daily, avoid aspirin and any other NSAID therapies, continue to trend CBC, monitor for any bleeding changes and if any concerns arise or any onset bleeding low threshold and IVIG 1 g/kg with initial dose with continue platelet monitoring and further treatments pending repeat platelet levels, continue consultation with oncology. As noted below #5 will obtain phenytoin level and given no obvious bone marrow etiology or other medication that could be causative will request neurology involvement for potential consideration of alternate AED in case this is contributing. #2. Atopic dermatitis: Recent onset atopic dermatitis to the antecubital and posterior fossa of the knee, initiated on low-dose hydrocortisone cream twice daily per oncology which will be continued with continued close monitoring and adjustments as needed. #3. Nonischemic cardiomyopathy with left bundle branch block: Following with cardiology, most recent visit noted 02/03/2024, most recent echocardiogram noted 07/2022 with normal LV size, mild concentric LVH, LVEF 45%, stage I diastolic dysfunction, mild MVI which was stable compared to previous, will cautiously continue metoprolol, ramipril and spironolactone home regimen. Avoiding all aspirin therapy is noted. #4. Chronic Kidney Disease Stage II suspected based on previous GFR trending: Admission BUN/Cr 25/0.89, GFR 66, baseline renal function primarily 0.7-0.9 and GFR has certainly vacillated but seems to primarily be within the stage II range, repeat BMP in AM. #5. Seizure disorder: Patient per list is on phenytoin 100 mg twice daily for seizures however it can have significant thrombocytopenia with bone marrow depression thus may need to potentially consider alternate agent, possibly Keppra, phenytoin level requested especially to ascertain if it is supratherapeutic which could be contributing, neurology consulted as noted. #6. Microcephaly with underlying developmental debility: Patient resides in residential living, has a legal guardian, complicates presentation, case management/social work consulted for assistance. #7. Hypertension: Continue home regimen including metoprolol, spironolactone, ramipril, PRN hydralazine. #8. Hyperlipidemia: Not on regimen, defer to outpatient. #9. Hypothyroidism: We will continue patient on levothyroxine regimen. #10. Morbid Obesity: Weight loss and lifestyle changes encouraged. #12. DVT prophylaxis: SCDs however if they are causing bruising we will discontinue. #13. CODE status: Patient BOZENA is her brother who is also per guardian and living will is they believe currently in place. Discussed CODE status at length including difference between FULL code, DNR-CCA and DNR-CC status. Following discussions about the differences in these status. Initially they were unsure but following discussions decided to keep Full Code status for now and further discussed with potential changes. Advanced Care Planning Face to Face Time: 16 minutes. Charges/Coding Visit Charges Inpatient E&M: 49797 Init Hosp L3 Procedures Hospitalists Procedures: [id number] Advncd Care Plan 30 Min
[2024-04-25] MEDS: dexAMETHasone 20 MG/5 ML Vial 40 MG IV (15:25)
--- NOTE | 2024-04-25 18:48 | NURSING ---
pt has not attempted to get out of bed since admit. bed alarm present with seizure pads present. no restress noted at this time
--- NOTE | 2024-04-25 20:34 | CASEMGMT ---
Care Management Face to Face with patient for initial transition planning/care coordination assessment in the ED.? This keno writer / runner and BOOKER Floerz introduced selves and roles at [facility]. Patient lying in bed, alert and oriented. Patient has developmental struggles, so her legal guardian, Conner, and his , as well as her long term caregiver, Michelle, were present in room. Michelle advocated for patient to have a sitter due to patient's impulsivity, lack of listening, having low platelets and high risk for bleeding, and not wanting to be alone in the hospital. Michelle also stated that patient will tell you want you want to hear even if it not the truth. Dr. Galan was informed of this request and stated she would attempt to place patient in the closest available room to the nurses station and would inform nursing of potential need for sitter. This SW updated Conner of this as patient was being taken to the acute floor. Admitting Diagnosis: acute ITP Other diagnosis history: pancytopenia, atopic dermatitis, microcephaly PCP: Everett Ruelas Specialists: Dr. Silva (neurologist). Dr. Zuniga (medical science liaison). Dr. Rea (ENT). Dr. Conroy (ham curer) Preferred Pharmacy: [facility] (first). [facility] (second). [facility] (third). Insurance: Medicare Part A and B (primary). Medicaid [employer] (secondary). Prescription Benefit:?yes Living Will/HPOA: yes, her legal guardian is Conner. Conner has documents that he plans to email to BOOKER Florez to put on file. LNOK: brother and legal guardian Conner. Living Arrangements: patient has lived at a waiver long term since 2019. Her caregiver, Michelle Cuenca, cares for patient and 2 other patients woolen suiting shrinker. Michelle reports that she cares for patient and 2 others all on her own. Transportation: Michelle reportedly drives patient to appointments. DME: patient reportedly uses a bedside commode. HHC: [facility] deny past HHC for patient. SNF/Rehab: Michelle and Conner deny past SNF/rehab for patient. Community Resources: patient works with [employer]och[employer] Carrillo through the [employer]. Patient previously attended [employer], but she is now retired. Patient goals: Patient's legal guardian wishes for her to discharge back to her long term. [facility] is able to enter the long term if needed. Disposition Plan: admission to acute; RN CM/SW team to follow as needed. Jennifer Cerda, [employer], CLINICAL PROGRAM DIRECTOR
[2024-04-25] MEDS: Metoprolol(XL)Succ 25 MG Tablet PO (21:52)
[2024-04-26] VITALS (11 sets, daily range): BP systolic 102–143; BP diastolic 54–82; PULSE 66–75; RESP 16; TEMP 36.5–36.8; O2SAT 92–97; BMI 46.1
[2024-04-26] MEDS: Levothyroxine 100 MCG Tablet PO (05:21)
[2024-04-26] MEDS: Ramipril 2.5 MG Capsule PO (07:44)
[2024-04-26] MEDS: Metoprolol(XL)Succ 25 MG Tablet PO ×2 (07:44→21:07)
[2024-04-26] MEDS: Spironolactone 25 MG Tablet PO (07:47)
[2024-04-26 08:19] LABS: Absolute Lymphocyte Count 1.08 X10^3/uL (0.83-4.51); Absolute Neutrophil Count 2.3 X10^3/uL (2.0-7.7); Basophil# 0.01 X10^3/uL; Basophil% 0.3 % (0-1); Eosinophil# 0.01 X10^3/uL; Eosinophils% 0.3 % (0-5); Hematocrit 23.1 % (37-47); Hemoglobin 7.7 g/dL (12.0-15.0); Lymphocyte # 1.08 X10^3/ul (0.83-4.51); Mean Corp Hgb Conc 33.3 g/dL (32-36); Monocyte# 0.48 X10^3/uL; NRBC Flagged by Analyzer 0 % (0-5); Neutrophil # 2.29 X10^3/uL (2.7-7.7); Neutrophil % 57.1 % (47-70); POSITIVE COUNT YES; RBC Distribution Width CV 15.9 % (11.6-14.6); RBC Distribution Width SD 59.1 fl (35.1-43.9)
[2024-04-26 08:23] LABS: Platelet Count 2 K/mm3 (150-450)
[2024-04-26 08:24] LABS: Differential Indicated SCAN CRITERIA MET
--- NOTE | 2024-04-26 08:57 | CON.PCM.ON_ITS ---
Assessment & Plan Assessment/Plan (1) Acute ITP: Status: Acute Code(s): D69.3 - Immune thrombocytopenic purpura Plan: The patient appears to have developed an acute severe on chronic thrombocytopenia. Clinically suspicious for acute ITP on top of her underlying bone marrow disease. * A trial of high-dose pulsed dexamethasone (40 mg p.o. or IV daily for 4 days) is warranted. * Consider IVIG (1 g/Kg for 1 or 2 daily doses depending on response) if there is no response to the 4 days of steroids. * Prophylactic platelet transfusions (in absence of any significant bleeding other than cutaneous purpura and/or minor nose or gum bleed) daily if platelet count is less than 10K. * No NSAIDS, and use nonpharmacologic VTE prophylaxis. * Follow [facility] daily. Discussed with Drs. Pedraza and Rmairez. (2) Pancytopenia: Status: Chronic Code(s): D61.818 - Other pancytopenia Plan: Chronic (years) with macrocytic indices in absence of deficiencies of B12, chronic liver disease and thyroid insufficiency are suggestive of a primary bone marrow disease namely myelodysplastic syndrome.The patient had a bone marrow aspirate and biopsy April 14, 2024 and although the histo-pathology was nondiagnostic due to insufficient sampling flow cytometry showed no clonality or increased blasts, cytogenetics and FISH panel are pending and may provide additional diagnostic information. Repeat bone marrow aspirate and biopsy may be needed if these studies do not provide any further information to confirm or establish a diagnosis. HPI Consult Data Date of Service:: 04/26/24 PCP / Referring Provider: Dr. Everett Ruelas DO Attending: Dr. Everett Aquino DO Chief Complaint Chief Complaint: Pancytopenia History of Present Illness History of Present Illness: 73-year-old with developmental disability due to micro-Cephaly admitted with with acute severe thrombocytopenia on top of chronic pancytopenia; see table 04/26/24 04/25/24 04/25/24 07:50 12:47 11:20 WBC 4.0 L 4.7 5.2 Hgb 7.7 L MCV 105.0 H 105.7 H 105.1 H Plt Count < 2 L* Absolute Neuts (auto) 2.3 3.2 3.6 04/14/24 04/07/24 04/06/24 07:54 14:29 20:04 WBC 3.2 L 3.5 L 4.3 L Hgb MCV 103.5 H 103.6 H 102.7 H Plt Count 9 L* 13 L* 15 L* Absolute Neuts (auto) 1.8 L 2.0 3.1 04/06/24 07/27/23 05/17/23 14:47 11:53 11:19 WBC 3.3 L 4.8 5.3 Hgb 11.3 L MCV 106.6 H 106.1 H 106.5 H Plt Count 11 L* 99 L 109 L Absolute Neuts (auto) 1.9 L 3.4 04/06/22 09/23/20 07/12/19 10:57 12:34 09:43 WBC 3.9 L 4.9 4.3 L Hgb 11.0 L 10.5 L 10.3 L MCV 107.8 H 107.2 H 106.6 H Plt Count 115 L 83 L 81 L Absolute Neuts (auto) 2.3 3.0 2.6 01/12/19 04/16/18 04/10/18 09:57 11:20 20:20 WBC 3.9 L 8.4 Hgb 11.1 L 11.0 L MCV 104.8 H 105.8 H Plt Count 85 L 112 L Absolute Neuts (auto) 2.3 5.7 07/03/16 09:10 WBC 2.9 L Hgb 10.9 L MCV 98.5 Plt Count 129 L Absolute Neuts (auto) Advanced Directives Power of Manager Property: Yes Living Will: Yes [facility] Medical History Microcephaly Thyroid disease Bladder disease Easy bruising Seizures Non-smoker History of echocardiogram Hypertension Cardiology follow-up encounter Recurrent UTI (urinary tract infection) History of colon polyps Osteoporosis of lumbar spine Needle phobia Chronic sinusitis Thrombocytopenia Anemia Psoriasis of scalp Allergic rhinitis Left ventricular systolic dysfunction Hypothyroidism Nonischemic cardiomyopathy facial Erysipelas Seizure disorder Developmental disability Multinodular goiter LBBB (left bundle branch block) Hyperlipidemia Home Medications ?Medication ?Instructions ?Recorded ?Last Taken ?Type ramipril 2.5 mg tablet 2.5 mg PO QDAY blood pressure 11/15/17 04/10/18 08:00 History 2.5mg spironolactone 25 mg tablet 25 mg PO QDAY 25mg 11/15/17 04/10/18 08:00 History 25 mg phenytoin sodium extended 100 mg 100 mg PO BID seizures 11/16/17 08/02/23 07:30 History capsule (Dilantin Extended) metoprolol succinate 25 mg 25 mg PO BID 11/17/18 08/02/23 07:30 History tablet,extended release 24 hr acetaminophen 325 mg capsule 650 mg PO BID PRN Fever 01/26/20 Unknown History (Tylenol) denosumab 60 mg/mL subcutaneous 60 mg subcut [id number] 02/09/23 Unknown History syringe (Prolia) handicap placcard #1 ea 02/09/23 Unknown Rx cholecalciferol (vitamin D3) 50 50 mcg PO DAILY 07/23/23 Unknown History mcg (2,000 unit) capsule (D3-2000) levothyroxine 100 mcg tablet 100 mcg PO DAILY 02/16/24 Unknown History nitrofurantoin 1 cap PO DAILY 02/16/24 Unknown History monohydrate/macrocrystals 100 mg capsule Allergy/AdvReac Type Severity Reaction Status Date / Time clindamycin Allergy Mild rash Verified 04/25/24 12:32 Family History Father TIA (transient ischemic attack) Colon cancer Mother Cancer brain Surgical History History of nasal surgery Hx of colonoscopy Hx of nasal polypectomy History of left heart catheterization (11/2007) History of foot surgery History of thyroidectomy Social History household members: other details: Residential living current occupational status: retired current occupation: Retired from [email or web address] Smoking Status: Never smoker alcohol intake: never substance use type: does not use additional social history: Has Legal Guardian and Provider IVAN LOVE Narrative Limited from the patient Constitutional Constitutional: Denies fever(s) ENT HEENT: Reports other Details: No epistaxis or gum bleed Gastrointestinal Gastrointestinal: Denies hematochezia or melena Genitourinary Genitourinary: Denies hematuria Integumentary Integumentary: Reports unusual bruising Hematologic/Lymphatic Hematologic/Lymphatic: Reports easy bruising Physical Exam Narrative Micro cephalic Const no apparent distress Skin General Skin Exam: ecchymosis and petechiae Vital Signs Temperature 98.3 F 04/26/24 08:16 Temperature Source Temporal 04/26/24 08:16 Pulse Rate 73 04/26/24 08:16 Pulse Strength Normal (2+) 04/26/24 08:16 Respiratory Rate 16 04/26/24 08:16 Respiratory Effort Normal 04/26/24 08:16 Respiratory Depth Normal 04/26/24 08:16 Respiratory Pattern Normal 04/26/24 08:16 Blood Pressure 143/78 H 04/26/24 08:16 Blood Pressure Mean 99 04/26/24 08:16 Blood Pressure Source Monitor 04/26/24 08:16 Blood Pressure Position Semi-Fowlers 04/26/24 08:16 Blood Pressure Location Right Arm 04/26/24 08:16 Pulse Ox 97 04/26/24 08:16 Oxygen Delivery Method Room Air 04/26/24 08:16 Laboratory Results 04/26/24 04/25/24 04/25/24 07:50 12:47 11:20 WBC 4.0 L 4.7 5.2 Hgb 7.7 L MCV 105.0 H 105.7 H 105.1 H Plt Count < 2 L* Absolute Neuts (auto) 2.3 3.2 3.6 04/14/24 04/07/24 04/06/24 07:54 14:29 20:04 WBC 3.2 L 3.5 L 4.3 L Hgb MCV 103.5 H 103.6 H 102.7 H Plt Count 9 L* 13 L* 15 L* Absolute Neuts (auto) 1.8 L 2.0 3.1 04/06/24 07/27/23 05/17/23 14:47 11:53 11:19 WBC 3.3 L 4.8 5.3 Hgb 11.3 L MCV 106.6 H 106.1 H 106.5 H Plt Count 11 L* 99 L 109 L Absolute Neuts (auto) 1.9 L 3.4 04/06/22 09/23/20 07/12/19 10:57 12:34 09:43 WBC 3.9 L 4.9 4.3 L Hgb 11.0 L 10.5 L 10.3 L MCV 107.8 H 107.2 H 106.6 H Plt Count 115 L 83 L 81 L Absolute Neuts (auto) 2.3 3.0 2.6 01/12/19 04/16/18 04/10/18 09:57 11:20 20:20 WBC 3.9 L 8.4 Hgb 11.1 L 11.0 L MCV 104.8 H 105.8 H Plt Count 85 L 112 L Absolute Neuts (auto) 2.3 5.7 07/03/16 09:10 WBC 2.9 L Hgb 10.9 L MCV 98.5 Plt Count 129 L Absolute Neuts (auto) Laboratory Results - last 24 hr 04/25/24 12:47: WBC 4.7, RBC 2.27 L, Hgb 7.9 L, Hct 24.0 L, MCV 105.7 H, MCH 34.8 H, MCHC 32.9, RDW Std Deviation 59.8 H, RDW Coeff of Marichuy 15.8 H, Plt Count < 2 L*, Immature Gran % (Auto) 0.800, Neut % (Auto) 68.1, Lymph % (Auto) 21.0, [place] % (Auto) 9.5, Eos % (Auto) 0.4, Baso % (Auto) 0.2, Absolute Neuts (auto) 3.2, Absolute Lymphs (auto) 0.99, Nucleated RBC % 0.4, Differential Comment SCANNED, Diff Path Review September, Platelet Estimate MKD DEC, PT 13.2, INR 1.0, APTT 23.0 L, Sodium 141, Potassium 3.9, Chloride 110 H, Carbon Dioxide 26.0, Anion Gap 5, BUN 25 H, Creatinine 0.89, Est GFR (MDRD) Af Amer 80, Est GFR (MDRD) Non-Af 66, BUN/Creatinine Ratio 28.1 H, Glucose 94, Calcium 8.2 L, Blood Type B NEGATIVE, Antibody Screen NEGATIVE 04/26/24 07:50: WBC 4.0 L, RBC 2.20 L, Hgb 7.7 L, Hct 23.1 L, MCV 105.0 H, MCH 35.0 H, MCHC 33.3, RDW Std Deviation 59.1 H, RDW Coeff of Marichuy 15.9 H, Plt Count 2 L*, Immature Gran % (Auto) 3.300 H, Neut % (Auto) 57.1, Lymph % (Auto) 27.0, [place] % (Auto) 12.0 H, Eos % (Auto) 0.3, Baso % (Auto) 0.3, Absolute Neuts (auto) 2.3, Absolute Lymphs (auto) 1.08, Nucleated RBC % [address] 04/25/24 13:37 IMPRESSION: Age consistent senescent changes, no acute hemorrhage Electronically Signed: Ellis Ball MD at 14:41 EST ,
[2024-04-26 09:26] LABS: Differential Comment SCANNED; Platelet Estimate MKD DEC (ADEQ); Polychromasia 1+
[2024-04-26 09:30] LABS: AST(SGOT) 12 U/L (15-37); Alanine Aminotransfer ALT/SGPT 13 U/L (13-56); Albumin, Serum 3.3 g/dL (3.2-5.0); Alkaline Phosphatase 100 U/L (45-117); Anion Gap 5 (5-15); BUN 23 mg/dL (7-18); BUN/Creat Ratio 32.6 RATIO (10-20); Calcium,Total 8.8 mg/dL (8.5-10.1); Chloride 112 mmol/L (98-107); EST Glomerular Filtration Rate 87 mL/min (>60); Est Glom Filt Rate - Afr Amer 105 mL/min (>60); Estimated Creatinine Clearance 56.23 ml/min; Globulin 3.4 g/dL (2.2-4.2); Glucose 92 mg/dL (74-106); Potassium 4.1 mmol/L (3.5-5.1); Protein, Total 6.7 g/dL (6.4-8.2); Sodium Level 142 mmol/L (136-145)
[2024-04-26] MEDS: dexAMETHasone 20 MG/5 ML Vial 40 MG IV (09:37)
[2024-04-26] MEDS: Hydrocortisone 2.5% Ointment 20 gm tube 1 APPLIC TOPICAL ×2 (09:41→21:07)
--- NOTE | 2024-04-26 09:49 | CON.PCM.NE_ITS ---
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 While dilantin has been shown to cause thrombocytopenia, her sudden severe decline is a little odd given she has had no changes in her medication. She has however had persistent low grade thrombocytopenia with ptl in 120-80s for several years. Exam unremarkable with no evidence of clear cerebellar ataxia or other neurologic symptoms of dilantin toxicity. At this time, if hematology/oncology believes that the thrombocytopenia could be drug induced and not related to ITP or other causes for thrombocytopenia, can consider changing dilantin to Keppra. However, would recommend not changing if there could be other causes of the thrombocytopenia. - recommend routine EEG to anticipate changing AED - if significant concern re drug induced thrombocytopenia, can change dilantin to keppra 500mg BID I personally attended this patient and spent a total time of 45 minutes evaluating this patient including clinical assessment, review of chart, medical history imaging, and determining appropriate treatment and workup. HPI Consult Data Date of Consult: 04/26/24 HPI Narrative HPI Narrative: LEWIS CASTILLO, is a 73 F who presents Re history of seizures from [address] 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 She is accompanied by a caregiver with whom the patient lives. The patient's seizures began either in infancy or childhood and her last seizure was in childhood. She takes phenytoin. It is unclear whether she had tried other antiepileptic medications in years past. She requires supervision in all her daily activities but is able to perform some tasks independently. She is able to communicate verbally on a basic level. 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 She has a history of numerous dental caries. She has mild gum disease. She does not have severe gum swelling/gingival hyperplasia. Details regarding her prior evaluation for epilepsy are not available. She denies any vision change, headaches, dizziness, weakness or numbness. She ambulates independently. She is tolerating phenytoin well. 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 She has not had any seizures since childhood. She currently takes phenytoin 100 mg twice daily and this will be continued for the present time. She will be evaluated further with a head CT, EEG and phenytoin level. I will have her return for reassessment in 1 month. If her EEG does not reveal epileptiform activity then a taper off of phenytoin will be considered. Neurologic history: [phone] - brother, Conner Castillo; history obtained from brother and prison leader. PAtient has been on the dilantin since a teenager. First seizure started when she was a teenager after an ear infection but has continued on dilantin since then. She has not had a seizure since she was a teenager. She had been on generic dilantin for a little while and was overly groggy with that. She has not had any changes in her medications for the last 10 years at least. At baseline walks independently, no falls recently. [facility] Medical History Microcephaly Thyroid disease Bladder disease Easy bruising Seizures Non-smoker History of echocardiogram Hypertension Cardiology follow-up encounter Recurrent UTI (urinary tract infection) History of colon polyps Osteoporosis of lumbar spine Needle phobia Chronic sinusitis Thrombocytopenia Anemia Psoriasis of scalp Allergic rhinitis Left ventricular systolic dysfunction Hypothyroidism Nonischemic cardiomyopathy facial Erysipelas Seizure disorder Developmental disability Multinodular goiter LBBB (left bundle branch block) Hyperlipidemia Home Medications ?Medication ?Instructions ?Recorded ?Last Taken ?Type ramipril 2.5 mg tablet 2.5 mg PO QDAY blood pressure 11/15/17 04/10/18 08:00 History 2.5mg spironolactone 25 mg tablet 25 mg PO QDAY 25mg 11/15/17 04/10/18 08:00 History 25 mg phenytoin sodium extended 100 mg 100 mg PO BID seizures 11/16/17 08/02/23 07:30 History capsule (Dilantin Extended) metoprolol succinate 25 mg 25 mg PO BID 11/17/18 08/02/23 07:30 History tablet,extended release 24 hr acetaminophen 325 mg capsule 650 mg PO BID PRN Fever 01/26/20 Unknown History (Tylenol) denosumab 60 mg/mL subcutaneous 60 mg subcut [id number] 02/09/23 Unknown History syringe (Prolia) handicap placcard #1 ea 02/09/23 Unknown Rx cholecalciferol (vitamin D3) 50 50 mcg PO DAILY 07/23/23 Unknown History mcg (2,000 unit) capsule (D3-2000) levothyroxine 100 mcg tablet 100 mcg PO DAILY 02/16/24 Unknown History nitrofurantoin 1 cap PO DAILY 02/16/24 Unknown History monohydrate/macrocrystals 100 mg capsule Allergy/AdvReac Type Severity Reaction Status Date / Time clindamycin Allergy Mild rash Verified 04/25/24 12:32 Family History Father TIA (transient ischemic attack) Colon cancer Mother Cancer brain Surgical History History of nasal surgery Hx of colonoscopy Hx of nasal polypectomy History of left heart catheterization (11/2007) History of foot surgery History of thyroidectomy Social History household members: other details: Residential living current occupational status: retired current occupation: Retired from [employer] Smoking Status: Never smoker alcohol intake: never substance use type: does not use additional social history: Has Legal Guardian and Provider Vital Signs Vital Signs Vital Signs: 04/25/24 12:29 04/25/24 12:32 04/25/24 12:51 Temperature 97 F L 98.3 F Temperature Source Temporal Temporal Pulse Rate 69 96 Pulse Strength Respiratory Rate 16 18 Respiratory Effort Normal Non-Labored Respiratory Depth Respiratory Pattern Normal Blood Pressure 104/71 121/71 H Blood Pressure Mean 82 87 Blood Pressure Source Blood Pressure Position Blood Pressure Location Pulse Ox 98 98 Oxygen Delivery Method Room Air Room Air 04/25/24 13:32 04/25/24 14:00 04/25/24 15:00 Temperature 97.6 F L 97.6 F L 97.6 F L Temperature Source Temporal Temporal Temporal Pulse Rate 69 70 71 Pulse Strength Respiratory Rate 17 18 25 H Respiratory Effort Respiratory Depth Respiratory Pattern Blood Pressure 127/52 H 119/61 109/68 Blood Pressure Mean 77 80 81 Blood Pressure Source Blood Pressure Position Blood Pressure Location Pulse Ox 98 98 98 Oxygen Delivery Method Room Air Room Air Room Air 04/25/24 15:29 04/25/24 16:00 04/25/24 16:55 Temperature 98.9 F 97.6 F L Temperature Source Temporal Pulse Rate 75 74 Pulse Strength Respiratory Rate 23 H 20 H Respiratory Effort Normal Respiratory Depth Normal Respiratory Pattern Normal Blood Pressure 104/62 126/74 H Blood Pressure Mean 76 91 Blood Pressure Source Blood Pressure Position Blood Pressure Location Pulse Ox 99 99 Oxygen Delivery Method Room Air Room Air 04/25/24 16:55 04/25/24 17:29 04/25/24 20:07 Temperature 97.5 F L 97.7 F L Temperature Source Oral Oral Pulse Rate 79 76 Pulse Strength Normal (2+) Respiratory Rate 16 16 Respiratory Effort Respiratory Depth Respiratory Pattern Blood Pressure 143/72 H 132/57 H Blood Pressure Mean 95 82 Blood Pressure Source Monitor Monitor Blood Pressure Position Semi-Fowlers Semi-Fowlers Blood Pressure Location Right Arm Right Arm Pulse Ox 97 95 Oxygen Delivery Method Room Air Room Air 04/25/24 20:10 04/25/24 20:12 04/25/24 20:35 Temperature 97.7 F L 98.2 F Temperature Source Oral Oral Pulse Rate 76 69 Pulse Strength Respiratory Rate 16 16 Respiratory Effort Normal Non-Labored Respiratory Depth Normal Respiratory Pattern Normal Blood Pressure 132/57 H 118/50 L Blood Pressure Mean 82 72 Blood Pressure Source Monitor Monitor Blood Pressure Position Semi-Fowlers Semi-Fowlers Blood Pressure Location Right Arm Right Arm Pulse Ox 95 96 Oxygen Delivery Method Room Air Room Air Room Air 04/25/24 20:50 04/25/24 21:52 04/26/24 04:24 Temperature 97.8 F Temperature Source Oral Pulse Rate 69 66 Pulse Strength Respiratory Rate 16 Respiratory Effort Respiratory Depth Respiratory Pattern Blood Pressure 118/50 L 131/54 H Blood Pressure Mean 79 Blood Pressure Source Monitor Blood Pressure Position Semi-Fowlers Blood Pressure Location Right Arm Pulse Ox 94 96 Oxygen Delivery Method Room Air Room Air 04/26/24 07:44 04/26/24 08:16 04/26/24 08:16 Temperature 98.3 F Temperature Source Temporal Pulse Rate 73 73 Pulse Strength Normal (2+) Respiratory Rate 16 Respiratory Effort Respiratory Depth Respiratory Pattern Blood Pressure 143/78 H Blood Pressure Mean 99 Blood Pressure Source Monitor Blood Pressure Position Semi-Fowlers Blood Pressure Location Right Arm Pulse Ox 97 Oxygen Delivery Method Room Air 04/26/24 08:16 Temperature Temperature Source Pulse Rate Pulse Strength Respiratory Rate Respiratory Effort Normal Respiratory Depth Normal Respiratory Pattern Normal Blood Pressure Blood Pressure Mean Blood Pressure Source Blood Pressure Position Blood Pressure Location Pulse Ox Oxygen Delivery Method Room Air Weight Weight: 69.8 kg Body Mass Index (BMI) 46.1 EEG Results Procedure Details EEG Procedure Details: LEWIS CASTILLO is a 73 year old F with a past medical history of , who presents for evaluation of Electroencephalogram on DATE at TIME Physical Exam Narrative -? General: Laying comfortably in bed; in no acute distress. -? HENT: Normal oropharynx and mucosa. Normal external appearance of ears and nose. Exophthalmos. -? Neck: Supple, no pain or tenderness -? CV:? No peripheral edema. -? Pulmonary:? Normal respiratory effort. -? Ext: No cyanosis, edema, or deformity -? Skin: No rash. Normal palpation of skin.? -? Musculoskeletal: full range of motion; no joint tenderness. Normal digits and nails by inspection. No clubbing. Mild gingival hyperplasia -? NEURO: -? Mental Status: The patient was alert and oriented to poorly to time (which is her baseline), but oriented to place, and person. -? Language: speech is clear.? Naming, repetition, fluency, and comprehension intact. -? Cranial Nerves: PERRL 3 mm/brisk. EOMI, visual nicole full, no facial asymmetry, facial sensation intact, hearing intact, tongue midline, no evidence of atrophy or fibrillations. -? Motor: normal bulk, tone, and strength throughout. No pronator drift or satelliting. Upper and lower extremities equal bilaterally. -? Tone: is normal and bulk is normal -? Sensation- Intact to light touch bilaterally -? Coordination: No dysmetria on [id number], finger follow finger or [id number]. -? Gait- Gait initiation was normal. Narrow base with good heel strike and stride length was observed during ambulation. Turns were in stride. Patient was able to walk normally in tandem. Lab / Micro Data 04/26/24 07:50 04/26/24 07:50 Labs: Laboratory Results - last 24 hr 04/25/24 12:47: WBC 4.7, RBC 2.27 L, Hgb 7.9 L, Hct 24.0 L, MCV 105.7 H, MCH 34.8 H, MCHC 32.9, RDW Std Deviation 59.8 H, RDW Coeff of Marichuy 15.8 H, Plt Count < 2 L*, Immature Gran % (Auto) 0.800, Neut % (Auto) 68.1, Lymph % (Auto) 21.0, [place] % (Auto) 9.5, Eos % (Auto) 0.4, Baso % (Auto) 0.2, Absolute Neuts (auto) 3.2, Absolute Lymphs (auto) 0.99, Nucleated RBC % 0.4, Differential Comment SCANNED, Diff Path Review May foll, Platelet Estimate MKD DEC, PT 13.2, INR 1.0, APTT 23.0 L, Sodium 141, Potassium 3.9, Chloride 110 H, Carbon Dioxide 26.0, Anion Gap 5, BUN 25 H, Creatinine 0.89, Est GFR (MDRD) Af Amer 80, Est GFR (MDRD) Non-Af 66, BUN/Creatinine Ratio 28.1 H, Glucose 94, Calcium 8.2 L, Blood Type B NEGATIVE, Antibody Screen NEGATIVE 04/26/24 07:50: WBC 4.0 L, RBC 2.20 L, Hgb 7.7 L, Hct 23.1 L, MCV 105.0 H, MCH 35.0 H, MCHC 33.3, RDW Std Deviation 59.1 H, RDW Coeff of Marichuy 15.9 H, Plt Count 2 L*, Immature Gran % (Auto) 3.300 H, Neut % (Auto) 57.1, Lymph % (Auto) 27.0, M jolynn % (Auto) 12.0 H, Eos % (Auto) 0.3, Baso % (Auto) 0.3, Absolute Neuts (auto) 2.3, Absolute Lymphs (auto) 1.08, Nucleated RBC % 0, Differential Comment SCANNED, Diff Path Review May foll, Platelet Estimate MKD DEC, Polychromasia 1+, Sodium 142, Potassium 4.1, Chloride 112 H, Carbon Dioxide 24.0, Anion Gap 5, BUN 23 H, Creatinine 0.70, Estim Creat Clear Calc 56.23, Est GFR (MDRD) Af Amer 105, Est GFR (MDRD) Non-Af 87, BUN/Creatinine Ratio 32.6 H, Glucose 92, Calcium 8.8, Total Bilirubin 0.40, AST 12 L, ALT 13, Alkaline Phosphatase 100, Total Protein 6.7, Albumin 3.3, Globulin 3.4, Albumin/Globulin Ratio 1.0 Imaging Radiology Impression Brain CT 04/25/24 13:37 IMPRESSION: Age consistent senescent changes, no acute hemorrhage Electronically Signed: Ellis Ball MD at 14:41 EST Reading Location ID and State: [address] [place] [address] , Service support , Active Medications Active Medications Active Medications: Current Medications Generic Name Dose Route Start Last Admin Trade Name Freq PRN Reason Stop Dose Admin Acetaminophen 650 mg 04/25/24 16:54 Acetaminophen 325 Mg Tablet PO Q4H PRN PRN Fever, pain 1-03/09 Al Hydroxide/Mg Hydroxide 30 ml 04/25/24 16:54 Mag Hydrox/Al Hydrox/Simeth 30 Ml Udc PO Q6H PRN PRN Gastric Burning Albuterol Sulfate 2.5 mg 04/25/24 16:54 Albuterol 2.5 Mg/3 Ml Vial.Neb. INHALATION Q2H PRN PRN Dyspnea, wheezing Dexamethasone Sodium Phosphate 40 mg 04/26/24 10:00 04/26/24 09:37 Dexamethasone 20 Mg/5 Ml Vial IV 04/29/24 10:01 40 mg DAILY HERNAN Administration Guaifenesin 20 ml 04/25/24 16:54 Guaifenesin 10 Ml Udc (200mg/10ml) PO Q4H PRN PRN COUGH Hydralazine HCl 10 mg 04/25/24 16:54 Hydralazine 20 Mg/Ml Vial IV Q4H PRN PRN SBP > 160 Protocol Hydrocortisone 1 applic 04/25/24 22:00 04/26/24 09:41 Hydrocortisone 2.5% Ointment 20 Gm Tube TOPICAL 1 applic BID HERNAN Administration Protocol Sodium Chloride 500 mls @ 15 mls/hr 04/25/24 17:37 IV .[id number] PRN Saline Flush Sodium Chloride 500 mls @ 15 mls/hr 04/25/24 17:37 IV .[id number] PRN Additional IVPB Infusion Levothyroxine Sodium 100 mcg 04/26/24 06:00 04/26/24 05:21 Levothyroxine 100 Mcg Tablet PO 100 mcg DAILY@0600 [facility] Administration Melatonin 3 mg 04/25/24 16:54 Melatonin 3 Mg Tablet PO QHS PRN PRN INSOMNIA Metoprolol Succinate 25 mg 04/25/24 22:00 04/26/24 07:44 Metoprolol(Xl)Succ 25 Mg Tablet PO 25 mg BID [facility] Administration Protocol Ondansetron HCl 4 mg 04/25/24 16:54 Ondansetron 4 Mg/2 Ml Vial IV Q8H PRN PRN NAUSEA/VOMITING Prochlorperazine Edisylate 5 mg 04/25/24 16:54 Prochlorperazine 10 Mg/2 Ml Vial IV Q4H PRN PRN Breakthrough nausea/vomiting Ramipril 2.5 mg 04/26/24 10:00 04/26/24 07:44 Ramipril 2.5 Mg Capsule PO 2.5 mg DAILY HERNAN Administration Senna/Docusate Sodium 2 tablet 04/25/24 16:54 Senna/Docusate Sodium 1 Tablet PO BID PRN PRN Constipation Sodium Chloride 10 - 40 ml 04/25/24 17:37 0.9% Saline Lock 10 Ml Syringe IV UD PRN SALINE FLUSH Spironolactone 25 mg 04/26/24 10:00 04/26/24 07:47 Spironolactone 25 Mg Tablet PO 25 mg DAILY [facility] Administration Protocol
[2024-04-26 14:27] LABS: Pathologist Review Reviewed
[2024-04-26 14:31] LABS: Pathologist Review Reviewed
--- NOTE | 2024-04-26 15:10 | CASEMGMT ---
Social Work Pt's brother Conner Gamboa is patient's guardian. Conner is aware that paperwork is needed at [facility] and will email a copy of guardianship paperwork. SHANTAL Epperson
--- NOTE | 2024-04-26 17:01 | PN.HOSP_ITS ---
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 I also talked with Dr. Sánchez, he recommended transfusing the patient with platelets (1 sixpack) if the platelet count was below 10,000 and the patient had no evidence of bleeding. Patient received 1 sixpack today, I will order a repeat CBC tonight Objective Data Objective Data Vital Signs: Vital Signs Temp Pulse Resp BP Pulse Ox O2 Del Method 97.8 F 72 16 128/56 H 96 Room Air 04/26/24 15:18 04/26/24 15:18 04/26/24 15:18 04/26/24 15:18 04/26/24 15:18 04/26/24 15:18 Oxygen Delivery Method Room Air Weight: 69.8 kg Body Mass Index (BMI) 46.1 Intake & Output: Intake and Output for Last 24 Hours 04/24/24 04/25/24 04/26/24 23:59 23:59 23:59 Intake Total 470 / 470 350 / 350 Balance 470 / 470 350 / 350 Lab / Micro Data 04/26/24 07:50 04/26/24 07:50 Labs: Laboratory Results - last 24 hr 04/25/24 12:47: Diff Path Review Reviewed 04/26/24 07:50: WBC 4.0 L, RBC 2.20 L, Hgb 7.7 L, Hct 23.1 L, MCV 105.0 H, MCH 35.0 H, MCHC 33.3, RDW Std Deviation 59.1 H, RDW Coeff of Marichuy 15.9 H, Plt Count 2 L*, Immature Gran % (Auto) 3.300 H, Neut % (Auto) 57.1, Lymph % (Auto) 27.0, M jolynn % (Auto) 12.0 H, Eos % (Auto) 0.3, Baso % (Auto) 0.3, Absolute Neuts (auto) 2.3, Absolute Lymphs (auto) 1.08, Nucleated RBC % 0, Differential Comment SCANNED, Diff Path Review Reviewed, Platelet Estimate MKD DEC, Polychromasia 1+, Sodium 142, Potassium 4.1, Chloride 112 H, Carbon Dioxide 24.0, Anion Gap 5, BUN 23 H, Creatinine 0.70, Estim Creat Clear Calc 56.23, Est GFR (MDRD) Af Amer 105, Est GFR (MDRD) Non-Af 87, BUN/Creatinine Ratio 32.6 H, Glucose 92, Calcium 8.8, Total Bilirubin 0.40, AST 12 L, ALT 13, Alkaline Phosphatase 100, Total Protein 6.7, Albumin 3.3, Globulin 3.4, Albumin/Globulin Ratio 1.0 Physical Exam Const alert and no apparent distress Constitutional Narrative: Patient has evidence of cognitive impairment on examination General Appearance: cooperative and well kempt Orientation / Consciousness: awake HEENT moist oral mucous membranes HEENT Narrative: Patient has evidence on appearance of microcephaly Eyes PERRL, EOMs intact bilaterally and conjunctivae normal Neck supple, no JVD, thyroid normal and no carotid bruits General: trachea midline Resp normal respiratory effort, no retractions, no use of accessory muscles and clear to auscultation bilaterally Auscultation: Negative for rales, rhonchi or wheezes Cardio regular rate, regular rhythm, S1 normal heart sound, S2 normal heart sound, no murmurs, no rub and no gallops GI normal to inspection, nondistended, normoactive bowel sounds, soft to palpation, non-tender and non-distended Neuro CN's II-XII intact bilaterally Neuro Narrative: Patient has cognitive impairment Sensorium / Orientation: awake and alert Speech: speech normal Psych Psych Narrative: Patient has evidence of cognitive impairment Assessment & Plan Assessment/Plan (1) Pancytopenia: PLAN: Plan 1. Pancytopenia-etiology unclear at this point, patient's recent bone marrow was nondiagnostic so far, we are awaiting additional studies (FISH studies and genetic testing) per hematology. Patient will receive a sixpack of platelets, they have not been infused as of the time of this dictation, she will then have a repeat CBC obtained. #2 possible ITP-patient is on IV Decadron per hematology, hematology is participating in her care #3 history of seizure disorder-according to the patient's caregiver, patient has not had a seizure since she was a teenager but she has been on Dilantin. Neurology and hematology do not feel the Dilantin is causing the low platelet count, patient was placed back on her Dilantin #4 microcephaly-complicates care, management, recovery, and prognosis #5 hypothyroidism-patient is on Synthroid #6 essential hypertension-patient will remain on her present medications Total clinical time spent by myself addressing the patient's medical issues, reviewing all of her data, and collaborating with patient's care team: 35 min Charges/Coding Visit Charges Inpatient E&M: 92952 Subs Hosp L2
[2024-04-26] MEDS: Phenytoin Na 100 MG Capsule PO (17:52)
[2024-04-26 19:57] LABS: Absolute Lymphocyte Count 0.79 X10^3/uL (0.83-4.51); Absolute Neutrophil Count 4.9 X10^3/uL (2.0-7.7); Hematocrit 20.6 % (37-47); Hemoglobin 6.9 g/dL (12.0-15.0); Lymphocyte # 0.79 X10^3/ul (0.83-4.51); Lymphocyte % 12.6 % (19-41); Mean Corp Hgb Conc 33.5 g/dL (32-36); Mean Corpuscular Volume 104.6 fL (81-99); Mean Platelet Vol. 10.6 fl (6.2-12.0); Monocyte# 0.44 X10^3/uL; NRBC Flagged by Analyzer 0 % (0-5); Neutrophil # 4.89 X10^3/uL (2.7-7.7); Neutrophil % 77.9 % (47-70); POSITIVE COUNT YES; RBC Distribution Width SD 58.3 fl (35.1-43.9); Red Blood Count 1.97 M/mm3 (4.2-5.4); White Blood Count 6.3 K/mm3 (4.4-11.0)
[2024-04-26 20:06] LABS: Differential Indicated SCAN CRITERIA MET; Platelet Count 22 K/mm3 (150-450)
[2024-04-26 20:32] LABS: Differential Comment SCANNED; Hypochromasia RARE; Polychromasia RARE
[2024-04-26] MEDS: 0.9% Saline Lock 10 ML Syringe IV (21:11)
[2024-04-27] VITALS (13 sets, daily range): BP systolic 105–162; BP diastolic 50–88; PULSE 67–77; RESP 16–18; TEMP 36.3–36.9; O2SAT 94–99; BMI 43.7
[2024-04-27 04:08] LABS: Phenytoin (Dilantin) Level 4.8 ug/mL (10.0-20.0)
[2024-04-27] MEDS: Levothyroxine 100 MCG Tablet PO (05:18)
[2024-04-27 06:08] LABS: Mucous, Urine 0 SEEN /hpf (<or=2+)
[2024-04-27 06:09] LABS: Color, Urine Yellow (Yellow); Glucose, Dipstick Normal (Normal); Ketone-Dipstick Negative (Negative); Leukocyte Esterase-Dipstick 25 /ul (Negative); Nitrite-Dipstick Negative (Negative); Occult Blood-Urine 10 /ul (Negative); Protein-Dipstick Negative (Negative); Urine Bilirubin Dipstick Negative (Negative); Urine Clarity Clear (Clear); Urine Urobilinogen Normal (Normal)
[2024-04-27 06:28] LABS: Bacteria RARE /hpf (None Seen); Red Blood Cells-Urine 5-10 SEEN /hpf (0-5); Squamous Epithelial Cells - UA 0 SEEN /hpf (5-10); White Blood Cells 5-10 SEEN /hpf (0-5)
--- NOTE | 2024-04-27 07:08 | PN.HOSP_ITS ---
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 Objective Data Objective Data Vital Signs: Vital Signs Temp Pulse Resp BP Pulse Ox O2 Del Method 36.3 C L 67 16 146/55 H 98 Room Air 04/27/24 05:18 04/27/24 05:18 04/27/24 05:18 04/27/24 05:18 04/27/24 05:18 04/27/24 05:18 Oxygen Delivery Method Room Air Weight: 69.8 kg Body Mass Index (BMI) 46.1 Intake & Output: Intake and Output for Last 24 Hours 04/25/24 04/26/24 04/27/24 23:59 23:59 23:59 Intake Total 470 / 470 819 / 1119 350 / 350 Balance 470 / 470 819 / 1119 350 / 350 Lab / Micro Data 04/27/24 08:10 04/27/24 08:10 Labs: Laboratory Results - last 24 hr 04/25/24 12:47: Diff Path Review Reviewed 04/25/24 17:30: Phenytoin 4.8 L 04/26/24 07:50: WBC 4.0 L, RBC 2.20 L, Hgb 7.7 L, Hct 23.1 L, MCV 105.0 H, MCH 35.0 H, MCHC 33.3, RDW Std Deviation 59.1 H, RDW Coeff of Marichuy 15.9 H, Plt Count 2 L*, Immature Gran % (Auto) 3.300 H, Neut % (Auto) 57.1, Lymph % (Auto) 27.0, M jolynn % (Auto) 12.0 H, Eos % (Auto) 0.3, Baso % (Auto) 0.3, Absolute Neuts (auto) 2.3, Absolute Lymphs (auto) 1.08, Nucleated RBC % 0, Differential Comment SCANNED, Diff Path Review Reviewed, Platelet Estimate MKD DEC, Polychromasia 1+, Sodium 142, Potassium 4.1, Chloride 112 H, Carbon Dioxide 24.0, Anion Gap 5, BUN 23 H, Creatinine 0.70, Estim Creat Clear Calc 56.23, Est GFR (MDRD) Af Amer 105, Est GFR (MDRD) Non-Af 87, BUN/Creatinine Ratio 32.6 H, Glucose 92, Calcium 8.8, Total Bilirubin 0.40, AST 12 L, ALT 13, Alkaline Phosphatase 100, Total Protein 6.7, Albumin 3.3, Globulin 3.4, Albumin/Globulin Ratio 1.0 04/26/24 19:40: WBC 6.3, RBC 1.97 L, Hgb 6.9 L, Hct 20.6 L, MCV 104.6 H, MCH 35.0 H, MCHC 33.5, RDW Std Deviation 58.3 H, RDW Coeff of Marichuy 16.0 H, Plt Count 22 L*, MPV 10.6, Immature Gran % (Auto) 2.500 H, Neut % (Auto) 77.9 H, Lymph % (Auto) 12.6 L, [place] % (Auto) 7.0, Eos % (Auto) 0.0, Baso % (Auto) 0.0, Absolute Neuts (auto) 4.9, Absolute Lymphs (auto) 0.79 L, Nucleated RBC % 0, Differential Comment SCANNED, Diff Path Review May foll, Polychromasia RARE, Hypochromasia RARE 04/27/24 05:30: Urine Color Yellow, Urine Clarity Clear, Urine pH 6.0, Ur Specific [place] 1.020, Urine Protein Negative, Urine Glucose (UA) Normal, Urine Ketones Negative, Urine Occult Blood 10 H, Urine Nitrite Negative, Urine Bilirubin Negative, Urine Urobilinogen Normal, Ur Leukocyte Esterase 25 H, Urine RBC 5-10 SEEN, Urine WBC 5-10 SEEN, Ur Squamous Epith Cells 0 SEEN, Urine Bacteria RARE, Urine Mucus 0 SEEN Physical Exam Const alert and no apparent distress HEENT head/scalp atraumatic and moist oral mucous membranes Resp normal respiratory effort, no retractions, no use of accessory muscles and clear to auscultation bilaterally Cardio regular rate, regular rhythm, S1 normal heart sound and S2 normal heart sound GI normal to inspection, nondistended, normoactive bowel sounds, soft to palpation, non-tender and non-distended Extremity normal to inspection and full ROM Neuro Sensorium / Orientation: awake and alert Assessment & Plan Assessment/Plan (1) Pancytopenia: PLAN: Plan Suspected Acute ITP * on dexamethasone 40 IV for 4 days. May need IVIG if no response. * Additional studies pending * improved after transfusion of [place] on the . * platelets again low. Will transfuse an additional units of platelets. Pancytopenia * BMBx on 04/14 was non-diagnostic. * MDS and FISH studies pending Chronic conditions: * seizure d/o: continue phenytoin, unless hematology feels that the pancytopenia is iatrogenic. If so, then change to levatiracetam * Microcephaly/MRDD: complicates care and recovery. * hypothyroidism: levothyroxine VTE prophylaxis: SCDs. Charges/Coding Visit Charges Inpatient E&M: 58421 Subs Hosp L2
[2024-04-27 08:32] LABS: Absolute Lymphocyte Count 1.38 X10^3/uL (0.83-4.51); Absolute Neutrophil Count 2.6 X10^3/uL (2.0-7.7); Basophil# 0.02 X10^3/uL; Basophil% 0.4 % (0-1); Eosinophil# 0.04 X10^3/uL; Eosinophils% 0.9 % (0-5); Hematocrit 22.2 % (37-47); Hemoglobin 7.5 g/dL (12.0-15.0); Lymphocyte # 1.38 X10^3/ul (0.83-4.51); Lymphocyte % 29.7 % (19-41); Mean Corp Hgb Conc 33.8 g/dL (32-36); Mean Corpuscular Hgb 35.2 pg (27.0-32.0); Mean Corpuscular Volume 104.2 fL (81-99); Monocyte# 0.52 X10^3/uL; Monocyte% 11.2 % (0-10); NRBC Flagged by Analyzer 0.4 % (0-5); Neutrophil # 2.61 X10^3/uL (2.7-7.7); Neutrophil % 56.1 % (47-70); POSITIVE COUNT YES; Platelet Count 2 K/mm3 (150-450); RBC Distribution Width CV 16.4 % (11.6-14.6); RBC Distribution Width SD 60.5 fl (35.1-43.9); Red Blood Count 2.13 M/mm3 (4.2-5.4); White Blood Count 4.7 K/mm3 (4.4-11.0)
[2024-04-27 08:35] LABS: Differential Indicated SCAN CRITERIA MET
[2024-04-27 08:45] LABS: Anion Gap 5 (5-15); BUN 28 mg/dL (7-18); BUN/Creat Ratio 39.5 RATIO (10-20); Calcium,Total 9.2 mg/dL (8.5-10.1); Chloride 110 mmol/L (98-107); Creatinine, Serum 0.71 mg/dL (0.55-1.02); EST Glomerular Filtration Rate 86 mL/min (>60); Est Glom Filt Rate - Afr Amer 104 mL/min (>60); Estimated Creatinine Clearance 56.23 ml/min; Glucose 89 mg/dL (74-106); Potassium 3.9 mmol/L (3.5-5.1); Sodium Level 139 mmol/L (136-145)
[2024-04-27] MEDS: Phenytoin Na 100 MG Capsule PO ×2 (09:03→17:06)
[2024-04-27] MEDS: Nitrofurantoin Macrocrystals 100 MG Capsule PO (09:04)
[2024-04-27] MEDS: 0.9% Saline Lock 10 ML Syringe IV ×2 (09:04→10:47)
[2024-04-27 09:18] LABS: Anisocytosis 2+; Hypochromasia 1+; Platelet Estimate MKD DEC (ADEQ)
[2024-04-27] MEDS: dexAMETHasone 20 MG/5 ML Vial 40 MG IV (10:44)
[2024-04-27] MEDS: Spironolactone 25 MG Tablet PO (10:45)
[2024-04-27] MEDS: Metoprolol(XL)Succ 25 MG Tablet PO ×2 (10:45→22:41)
[2024-04-27] MEDS: Ramipril 2.5 MG Capsule PO (10:45)
[2024-04-27] MEDS: Hydrocortisone 2.5% Ointment 20 gm tube 1 APPLIC TOPICAL ×2 (10:46→22:42)
[2024-04-27 22:27] LABS: Absolute Lymphocyte Count 0.83 X10^3/uL (0.83-4.51); Absolute Neutrophil Count 5.9 X10^3/uL (2.0-7.7); Basophil# 0.01 X10^3/uL; Basophil% 0.1 % (0-1); Eosinophil# 0.01 X10^3/uL; Eosinophils% 0.1 % (0-5); Hematocrit 20.3 % (37-47); Hemoglobin 6.9 g/dL (12.0-15.0); Lymphocyte # 0.83 X10^3/ul (0.83-4.51); Lymphocyte % 11.2 % (19-41); Mean Corpuscular Hgb 35.4 pg (27.0-32.0); Mean Corpuscular Volume 104.1 fL (81-99); Mean Platelet Vol. 9.3 fl (6.2-12.0); Monocyte# 0.51 X10^3/uL; Monocyte% 6.9 % (0-10); NRBC Flagged by Analyzer 0.3 % (0-5); Neutrophil # 5.86 X10^3/uL (2.7-7.7); Neutrophil % 78.9 % (47-70); POSITIVE COUNT YES; RBC Distribution Width SD 57.4 fl (35.1-43.9); Red Blood Count 1.95 M/mm3 (4.2-5.4); White Blood Count 7.4 K/mm3 (4.4-11.0)
[2024-04-27 22:30] LABS: Differential Indicated SCAN CRITERIA MET; Platelet Count 13 K/mm3 (150-450)
[2024-04-27 23:00] LABS: Differential Comment SCANNED; Hypochromasia 1+; Polychromasia RARE
[2024-04-28] VITALS (15 sets, daily range): BP systolic 111–136; BP diastolic 44–118; PULSE 60–74; RESP 16; TEMP 36.3–37; O2SAT 96–98; BMI 43.7
[2024-04-28] MEDS: Levothyroxine 100 MCG Tablet PO (06:34)
--- NOTE | 2024-04-28 07:46 | PN.HOSP_ITS ---
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 Objective Data Objective Data Vital Signs: Vital Signs Temp Pulse Resp BP Pulse Ox O2 Del Method 36.3 C L 63 16 136/82 H 98 Room Air 04/28/24 04:45 04/28/24 04:45 04/28/24 04:45 04/28/24 07:16 04/28/24 04:45 04/28/24 04:45 Oxygen Delivery Method Room Air Weight: 66.2 kg Body Mass Index (BMI) 43.7 Intake & Output: Intake and Output for Last 24 Hours 04/26/24 04/27/24 04/28/24 23:59 23:59 23:59 Intake Total 819 / 1119 1458 / 1458 200 / 200 Balance 819 / 1119 1458 / 1458 200 / 200 Lab / Micro Data 04/28/24 04:15 04/28/24 09:15 Labs: Laboratory Results - last 24 hr 04/27/24 08:10: WBC 4.7, RBC 2.13 L, Hgb 7.5 L, Hct 22.2 L, MCV 104.2 H, MCH 35.2 H, MCHC 33.8, RDW Std Deviation 60.5 H, RDW Coeff of Marichuy 16.4 H, Plt Count 2 L*, Immature Gran % (Auto) 1.700 H, Neut % (Auto) 56.1, Lymph % (Auto) 29.7, M jolynn % (Auto) 11.2 H, Eos % (Auto) 0.9, Baso % (Auto) 0.4, Absolute Neuts (auto) 2.6, Absolute Lymphs (auto) 1.38, Nucleated RBC % 0.4, Diff Path Review September, Platelet Estimate MKD DEC, Hypochromasia 1+, Anisocytosis 2+, Sodium 139, Potassium 3.9, Chloride 110 H, Carbon Dioxide 24.0, Anion Gap 5, BUN 28 H, Creatinine 0.71, Estim Creat Clear Calc 56.23, Est GFR (MDRD) Af Amer 104, Est GFR (MDRD) Non-Af 86, BUN/Creatinine Ratio 39.5 H, Glucose 89, Calcium 9.2 04/27/24 22:20: WBC 7.4, RBC 1.95 L, Hgb 6.9 L, Hct 20.3 L, MCV 104.1 H, MCH 35.4 H, MCHC 34.0, RDW Std Deviation 57.4 H, RDW Coeff of Marichuy 16.0 H, Plt Count 13 L*, MPV 9.3, Immature Gran % (Auto) 2.800 H, Neut % (Auto) 78.9 H, Lymph % (Auto) 11.2 L, [place] % (Auto) 6.9, Eos % (Auto) 0.1, Baso % (Auto) 0.1, Absolute Neuts (auto) 5.9, Absolute Lymphs (auto) 0.83, Nucleated RBC % 0.3, Differential Comment SCANNED, Diff Path Review May foll, Polychromasia RARE, Hypochromasia 1+ Physical Exam Const alert and no apparent distress Constitutional Narrative: Up eating breakfast HEENT HEENT Narrative: microcephalic. Resp normal respiratory effort, no retractions, no use of accessory muscles and clear to auscultation bilaterally Cardio regular rate, regular rhythm, S1 normal heart sound and S2 normal heart sound GI normal to inspection, nondistended, normoactive bowel sounds, soft to palpation, non-tender and non-distended Extremity normal to inspection and no clubbing, cyanosis or edema Neuro Sensorium / Orientation: awake and alert Psych Psych Narrative: flat affect. Assessment & Plan Assessment/Plan (1) Pancytopenia: PLAN: Plan Suspected Acute ITP * on dexamethasone 40 IV for 4 days. May need IVIG if no response. * Additional studies pending * improved after transfusion of plateles on the . * Transfuse platelets twice thus far. Again low, will transfuse again. Pancytopenia * BMBx on 04/14 was non-diagnostic. * MDS and FISH studies pending * Hg 6.9 04/27. Will transfuse 1 PRCs. Chronic conditions: * seizure d/o: continue phenytoin, unless hematology feels that the pancytopenia is iatrogenic. If so, then change to levetiracetam * Microcephaly/MRDD: complicates care and recovery. * hypothyroidism: levothyroxine VTE prophylaxis: SCDs. Disposition: TBD. When platelets and Hg stable. I do not anticipate patient will be ready for at least another 48hours. Charges/Coding Visit Charges Inpatient E&M: 34331 Subs Hosp L2
[2024-04-28] MEDS: Nitrofurantoin Macrocrystals 100 MG Capsule PO (07:52)
[2024-04-28] MEDS: Phenytoin Na 100 MG Capsule PO ×2 (07:52→17:42)
[2024-04-28 09:35] LABS: Hematocrit 23.2 % (37-47); Hemoglobin 7.6 g/dL (12.0-15.0); Mean Corp Hgb Conc 32.8 g/dL (32-36); Mean Corpuscular Hgb 34.7 pg (27.0-32.0); Mean Corpuscular Volume 105.9 fL (81-99); POSITIVE COUNT YES; RBC Distribution Width CV 16.6 % (11.6-14.6); RBC Distribution Width SD 60.7 fl (35.1-43.9); Red Blood Count 2.19 M/mm3 (4.2-5.4); White Blood Count 4.9 K/mm3 (4.4-11.0)
[2024-04-28 09:37] LABS: Scan Indicated on CBC? Y/N YES- FLAGS NOTED
[2024-04-28 09:38] LABS: Platelet Count 4 K/mm3 (150-450)
[2024-04-28 10:00] LABS: Anion Gap 6 (5-15); BUN 20 mg/dL (7-18); BUN/Creat Ratio 23.4 RATIO (10-20); Calcium,Total 9.1 mg/dL (8.5-10.1); Chloride 107 mmol/L (98-107); Creatinine, Serum 0.86 mg/dL (0.55-1.02); EST Glomerular Filtration Rate 69 mL/min (>60); Est Glom Filt Rate - Afr Amer 84 mL/min (>60); Estimated Creatinine Clearance 50.94 ml/min; Glucose 131 mg/dL (74-106); Potassium 3.8 mmol/L (3.5-5.1); Sodium Level 140 mmol/L (136-145)
[2024-04-28] MEDS: Ramipril 2.5 MG Capsule PO (10:08)
[2024-04-28] MEDS: Spironolactone 25 MG Tablet PO (10:08)
[2024-04-28] MEDS: Metoprolol(XL)Succ 25 MG Tablet PO ×2 (10:08→21:51)
[2024-04-28] MEDS: Hydrocortisone 2.5% Ointment 20 gm tube 1 APPLIC TOPICAL ×2 (10:09→21:52)
[2024-04-28] MEDS: dexAMETHasone 20 MG/5 ML Vial 40 MG IV (10:09)
[2024-04-28] MEDS: 0.9% Saline Lock 10 ML Syringe IV (10:09)
[2024-04-28 13:43] LABS: Pathologist Review Reviewed
[2024-04-28 13:44] LABS: Pathologist Review Reviewed
[2024-04-28 13:46] LABS: Pathologist Review Reviewed
--- NOTE | 2024-04-28 16:27 | CASEMGMT ---
Social Work- BOOKER spoke with Michelle, residential staff, to provide updates and verify pt ability to return at d/c. Michelle reports pt can return at this time. Michelle reports that they can transport pt at d/c, just call ahead. Michelle reports no questions or concerns at this time. BOOKER will remain available to follow. SHANTAL Moreno
[2024-04-29] VITALS (10 sets, daily range): BP systolic 115–143; BP diastolic 58–79; PULSE 63–76; RESP 16–18; TEMP 36.2–36.6; O2SAT 95–98; BMI 43.7
[2024-04-29] MEDS: Levothyroxine 100 MCG Tablet PO (05:08)
--- NOTE | 2024-04-29 07:17 | PN.HOSP_ITS ---
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) Objective Data Objective Data Vital Signs: Vital Signs Temp Pulse Resp BP Pulse Ox O2 Del Method 36.6 C 67 16 115/79 98 Room Air 04/29/24 05:06 04/29/24 05:06 04/29/24 05:06 04/29/24 05:06 04/29/24 05:06 04/29/24 05:06 Oxygen Delivery Method Room Air Weight: 66.2 kg Body Mass Index (BMI) 43.7 Intake & Output: Intake and Output for Last 24 Hours 04/27/24 04/28/24 04/29/24 23:59 23:59 23:59 Intake Total 1458 / 1458 957 / 1157 742 / 742 Balance 1458 / 1458 957 / 1157 742 / 742 Lab / Micro Data 04/28/24 04:15 04/28/24 09:15 Labs: Laboratory Results - last 24 hr 04/25/24 12:47: Crossmatch See Detail 04/26/24 19:40: Diff Path Review Reviewed 04/27/24 08:10: Diff Path Review Reviewed 04/27/24 22:20: Diff Path Review Reviewed 04/28/24 04:15: WBC 4.9, RBC 2.19 L, Hgb 7.6 L, Hct 23.2 L, MCV 105.9 H, MCH 34.7 H, MCHC 32.8, RDW Std Deviation 60.7 H, RDW Coeff of Marichuy 16.6 H, Plt Count 4 L*, Differential Comment , Diff Path Review May 04/28/24 09:15: Sodium 140, Potassium 3.8, Chloride 107, Carbon Dioxide 27.0, Anion Gap 6, BUN 20 H, Creatinine 0.86, Estim Creat Clear Calc 50.94, Est GFR (MDRD) Af Amer 84, Est GFR (MDRD) Non-Af 69, BUN/Creatinine Ratio 23.4 H, G lucose 131 H, Calcium 9.1 04/28/24 19:50: Blood Type B NEGATIVE, Antibody Screen NEGATIVE Assessment & Plan Assessment/Plan (1) Pancytopenia: PLAN: Plan Suspected Acute ITP * on dexamethasone 40 IV for 4 days. If no improvements, may need IVIG * Additional studies pending * improved after transfusion of plateles on the . * Transfuse platelets twice thus far. Again low, will transfuse again. Pancytopenia * BMBx on 04/14 was non-diagnostic. * MDS and FISH studies pending * Hg 6.9 04/27. Will transfuse 1 PRCs. Chronic conditions: * seizure d/o: continue phenytoin, unless hematology feels that the pancytopenia is iatrogenic. If so, then change to levetiracetam * Microcephaly/MRDD: complicates care and recovery. * hypothyroidism: levothyroxine VTE prophylaxis: SCDs. Disposition: TBD. When platelets and Hg stable. I do not anticipate patient will be ready for at least another 48hours.
--- NOTE | 2024-04-29 07:17 | PCM.PN.HOSP ---
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 Denies pain. Objective Data Objective Data Vital Signs: Vital Signs Temp Pulse Resp BP Pulse Ox O2 Del Method 36.6 C 67 16 115/79 98 Room Air 04/29/24 05:06 04/29/24 05:06 04/29/24 05:06 04/29/24 05:06 04/29/24 05:06 04/29/24 05:06 Oxygen Delivery Method Room Air Weight: 66.2 kg Body Mass Index (BMI) 43.7 Intake & Output: Intake and Output for Last 24 Hours 04/27/24 04/28/24 04/29/24 23:59 23:59 23:59 Intake Total 1458 / 1458 957 / 1157 742 / 742 Balance 1458 / 1458 957 / 1157 742 / 742 Lab / Micro Data 04/29/24 09:12 04/29/24 07:10 Labs: Laboratory Results - last 24 hr 04/25/24 12:47: Crossmatch See Detail 04/26/24 19:40: Diff Path Review Reviewed 04/27/24 08:10: Diff Path Review Reviewed 04/27/24 22:20: Diff Path Review Reviewed 04/28/24 04:15: WBC 4.9, RBC 2.19 L, Hgb 7.6 L, Hct 23.2 L, MCV 105.9 H, MCH 34.7 H, MCHC 32.8, RDW Std Deviation 60.7 H, RDW Coeff of Marichuy 16.6 H, Plt Count 4 L*, Differential Comment , Diff Path Review September04/28/24 09:15: Sodium 140, Potassium 3.8, Chloride 107, Carbon Dioxide 27.0, Anion Gap 6, BUN 20 H, Creatinine 0.86, Estim Creat Clear Calc 50.94, Est GFR (MDRD) Af Amer 84, Est GFR (MDRD) Non-Af 69, BUN/Creatinine Ratio 23.4 H, Glucose 131 H, Calcium 9.1 04/28/24 19:50: Blood Type B NEGATIVE, Antibody Screen NEGATIVE Physical Exam Const alert and no apparent distress Constitutional Narrative: up in bed eating breakfast. HEENT head/scalp atraumatic and moist oral mucous membranes Resp normal respiratory effort, no retractions, no use of accessory muscles and clear to auscultation bilaterally Cardio regular rate, regular rhythm, S1 normal heart sound and S2 normal heart sound GI normal to inspection, nondistended, normoactive bowel sounds, soft to palpation, non-tender and non-distended Extremity normal to inspection and full ROM Neuro Sensorium / Orientation: awake and alert Assessment & Plan Assessment/Plan (1) Pancytopenia: PLAN: Plan Suspected Acute ITP on dexamethasone 40 IV for 4 days. If no improvements, may need IVIG Additional studies pending improved after transfusion of plateles on the . Transfuse platelets thrice thus far. Pancytopenia BMBx on 04/14 was non-diagnostic. MDS and FISH studies pending Hg 6.9 04/27. Will transfuse 1 PRCs. Chronic conditions: seizure d/o: continue phenytoin, unless hematology feels that the pancytopenia is iatrogenic. If so, then change to levetiracetam Microcephaly/MRDD: complicates care and recovery. hypothyroidism: levothyroxine VTE prophylaxis: SCDs. Disposition: TBD. Depending on platelets. Charges/Coding Visit Charges Inpatient E&M: 37191 Subs Hosp L2
[2024-04-29 08:08] LABS: Anion Gap 5 (5-15); BUN 24 mg/dL (7-18); BUN/Creat Ratio 34.1 RATIO (10-20); Calcium,Total 8.9 mg/dL (8.5-10.1); Chloride 109 mmol/L (98-107); EST Glomerular Filtration Rate 87 mL/min (>60); Est Glom Filt Rate - Afr Amer 105 mL/min (>60); Estimated Creatinine Clearance 54.76 ml/min; Glucose 93 mg/dL (74-106); Potassium 4.1 mmol/L (3.5-5.1); Sodium Level 140 mmol/L (136-145)
[2024-04-29] MEDS: Spironolactone 25 MG Tablet PO (08:45)
[2024-04-29] MEDS: Phenytoin Na 100 MG Capsule PO ×2 (08:45→16:50)
[2024-04-29] MEDS: Nitrofurantoin Macrocrystals 100 MG Capsule PO (08:45)
[2024-04-29] MEDS: Ramipril 2.5 MG Capsule PO (08:46)
[2024-04-29] MEDS: Metoprolol(XL)Succ 25 MG Tablet PO ×2 (08:46→20:44)
[2024-04-29] MEDS: dexAMETHasone 20 MG/5 ML Vial 40 MG IV (08:48)
[2024-04-29] MEDS: 0.9% Saline Lock 10 ML Syringe IV (08:51)
[2024-04-29 09:28] LABS: Hematocrit 28.4 % (37-47); Hemoglobin 9.5 g/dL (12.0-15.0); Mean Corp Hgb Conc 33.5 g/dL (32-36); Mean Corpuscular Hgb 33.8 pg (27.0-32.0); Mean Corpuscular Volume 101.1 fL (81-99); POSITIVE COUNT YES; POSITIVE MORPHOLOGY YES; RBC Distribution Width CV 19.9 % (11.6-14.6); RBC Distribution Width SD 69.8 fl (35.1-43.9); Red Blood Count 2.81 M/mm3 (4.2-5.4); White Blood Count 5.7 K/mm3 (4.4-11.0)
[2024-04-29 09:49] LABS: Differential Indicated MANUAL DIFF; Platelet Count 18 K/mm3 (150-450)
[2024-04-29 09:52] LABS: Eosinophil 1 % (0-5); Lymphocyte 30 % (19-41); Metamyelocyte 2 % (0-1); Monocyte 2 % (0-10); Myelocyte 2 % (0-0); Neutrophil-Segmented 63 % (47-70); Total Cells Counted 100 (MANUAL DIFF)
[2024-04-29 09:53] LABS: Absolute Neutrophil Count 3.6 X10^3/uL (2.0-7.7)
[2024-04-29 09:54] LABS: Absolute Lymphocyte Count 1.72 X10^3/uL (0.83-4.51); Differential Comment MANUAL DIFF; Lymphocyte # 1.72 X10^3/ul (0.83-4.51); Platelet Estimate MKD DEC (ADEQ)
[2024-04-29 09:55] LABS: Anisocytosis 1+; Macrocytosis 1+; Ovalocyte RARE; Polychromasia 1+
[2024-04-29] MEDS: Hydrocortisone 2.5% Ointment 20 gm tube 1 APPLIC TOPICAL (20:44)
[2024-04-30] VITALS (17 sets, daily range): BP systolic 90–148; BP diastolic 42–80; PULSE 63–78; RESP 16; TEMP 36.2–37.1; O2SAT 94–100; BMI 43.8
[2024-04-30] MEDS: Levothyroxine 100 MCG Tablet PO (04:30)
[2024-04-30 06:05] LABS: Hematocrit 28.2 % (37-47); Hemoglobin 9.5 g/dL (12.0-15.0); Mean Corp Hgb Conc 33.7 g/dL (32-36); Mean Corpuscular Hgb 34.8 pg (27.0-32.0); Mean Corpuscular Volume 103.3 fL (81-99); POSITIVE COUNT YES; POSITIVE MORPHOLOGY YES; RBC Distribution Width CV 19.9 % (11.6-14.6); RBC Distribution Width SD 70.3 fl (35.1-43.9); Red Blood Count 2.73 M/mm3 (4.2-5.4); White Blood Count 6.7 K/mm3 (4.4-11.0)
[2024-04-30 07:15] LABS: Differential Indicated MANUAL DIFF; Platelet Count 6 K/mm3 (150-450)
[2024-04-30 07:17] LABS: Lymphocyte 23 % (19-41); Metamyelocyte 2 % (0-1); Monocyte 12 % (0-10); Neutrophil-Band 2 % (0-5); Neutrophil-Segmented 61 % (47-70); Total Cells Counted 100 (MANUAL DIFF)
[2024-04-30 07:19] LABS: Anisocytosis 2+; Basophilic Stippling 1+; Macrocytosis 2+; Ovalocyte 1+; Platelet Estimate MKD DEC (ADEQ); Polychromasia 2+
[2024-04-30 07:20] LABS: Absolute Lymphocyte Count 1.55 X10^3/uL (0.83-4.51); Absolute Neutrophil Count 4.2 X10^3/uL (2.0-7.7)
[2024-04-30] MEDS: Metoprolol(XL)Succ 25 MG Tablet PO ×2 (07:28→22:47)
[2024-04-30] MEDS: Ramipril 2.5 MG Capsule PO (07:28)
[2024-04-30] MEDS: Hydrocortisone 2.5% Ointment 20 gm tube 1 APPLIC TOPICAL ×2 (07:29→22:47)
[2024-04-30] MEDS: Nitrofurantoin Macrocrystals 100 MG Capsule PO (07:29)
[2024-04-30] MEDS: Phenytoin Na 100 MG Capsule PO ×2 (07:29→16:42)
[2024-04-30] MEDS: Spironolactone 25 MG Tablet PO (07:29)
--- NOTE | 2024-04-30 07:41 | PN.HOSP_ITS ---
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 Objective Data Objective Data Vital Signs: Vital Signs Temp Pulse Resp BP Pulse Ox O2 Del Method 36.4 C L 66 16 139/76 H 95 Room Air 04/30/24 04:27 04/30/24 07:28 04/30/24 04:27 04/30/24 04:27 04/30/24 04:27 04/30/24 04:27 Oxygen Delivery Method Room Air Weight: 66.3 kg Body Mass Index (BMI) 43.8 Intake & Output: Intake and Output for Last 24 Hours 04/28/24 04/29/24 04/30/24 23:59 23:59 23:59 Intake Total 957 / 1157 1442 / 1442 300 / 300 Balance 957 / 1157 1442 / 1442 300 / 300 Lab / Micro Data 04/30/24 04:20 04/29/24 07:10 Labs: Laboratory Results - last 24 hr 04/29/24 07:10: Sodium 140, Potassium 4.1, Chloride 109 H, Carbon Dioxide 27.0, Anion Gap 5, BUN 24 H, Creatinine 0.70, Estim Creat Clear Calc 54.76, Est GFR (MDRD) Af Amer 105, Est GFR (MDRD) Non-Af 87, BUN/Creatinine Ratio 34.1 H, Glucose 93, Calcium 8.9 04/29/24 09:12: WBC 5.7, RBC 2.81 L, Hgb 9.5 L, Hct 28.4 L, MCV 101.1 H, MCH 33.8 H, MCHC 33.5, RDW Std Deviation 69.8 H, RDW Coeff of Marichuy 19.9 H, Plt Count 18 L*, Neut % (Auto) Not Reportable, Absolute Neuts (auto) 3.6, Absolute Lymphs (auto) 1.72, Total Counted 100, Neutrophils % (Manual) 63, Lymphocytes % (Manual) 30, Monocytes % (Manual) 2, Eosinophils % (Manual) 1, Metamyelocytes % 2 H, Myelocytes % 2 H, Differential Comment MANUAL DIFF, Diff Path Review May foll, Platelet Estimate MKD DEC, Polychromasia 1+, Anisocytosis 1+, Macrocytosis 1+, Ovalocytes RARE 04/30/24 04:20: WBC 6.7, RBC 2.73 L, Hgb 9.5 L, Hct 28.2 L, MCV 103.3 H, MCH 34.8 H, MCHC 33.7, RDW Std Deviation 70.3 H, RDW Coeff of Marichuy 19.9 H, Plt Count 6 L*, Neut % (Auto) Not Reportable, Absolute Neuts (auto) 4.2, Absolute Lymphs (auto) 1.55, Total Counted 100, Neutrophils % (Manual) 61, Band Neutrophils % 2, Lymphocytes % (Manual) 23, Monocytes % (Manual) 12 H, Metamyelocytes % 2 H, Diff Path Review May foll, Platelet Estimate MKD DEC, Polychromasia 2+, Basophilic Stippling 1+, Anisocytosis 2+, Macrocytosis 2+, Ovalocytes 1+ Physical Exam Const alert and no apparent distress Constitutional Narrative: up in chair. Afebrile. No respiratory distress. No conversational dyspnea. HEENT head/scalp atraumatic and moist oral mucous membranes Resp normal respiratory effort and no retractions Cardio regular rate, regular rhythm, S1 normal heart sound and S2 normal heart sound GI normal to inspection, nondistended, normoactive bowel sounds, soft to palpation, non-tender and non-distended Extremity normal to inspection and full ROM Assessment & Plan Assessment/Plan (1) Pancytopenia: PLAN: Plan Thrombocytopenia * ITP v MDS * Completed dexamethasone 40 IV for 4 days. With no improvement. DW Dr. Sánchez, who recommends IVIG 1mg/kg x1 and reevaluate her response on 05/01. It is possible she may need another dose on depending on her response, or lack thereof. He said the FISH study was negative, though, he states that this does not rule out MDS. * Has been transfused platelets 3 x thus far. Will transfuse again. * continue to monitor Pancytopenia * BMBx on 04/14 was non-diagnostic. Per Dr. Sánchez, he will confer with Dr. Pedraza to see if patient may require another. * Hg 6.9 04/27. Will transfuse 1 PRCs. Hg since stable. * WBCs overall better and stable. Chronic conditions: * seizure d/o: continue phenytoin, unless hematology feels that the pancytopenia is iatrogenic. If so, then change to levetiracetam * Microcephaly/MRDD: complicates care and recovery. * hypothyroidism: levothyroxine VTE prophylaxis: SCDs. Disposition: TBD. Depending on platelets. [facility]. Charges/Coding Visit Charges Inpatient E&M: 90929 Subs Hosp L2
[2024-04-30] MEDS: Immune Globulin 10 gm 10 GM/100 ML VIAL IV (10:37)
[2024-04-30] MEDS: Immune Globulin 20 gm 20 GM/200 ML VIAL IV (11:54)
[2024-04-30] MEDS: Immune Globulin 5 GM 5 GM/50 ML VIAL IV (13:15)
[2024-04-30] MEDS: Senna/Docusate Sodium 1 Tablet 2 TABLET PO (22:51)
[2024-04-30] MEDS: Acetaminophen 325 MG Tablet 650 MG PO (22:51)
[2024-05-01] VITALS (16 sets, daily range): BP systolic 103–150; BP diastolic 51–86; PULSE 63–70; RESP 15–18; TEMP 36.3–36.8; O2SAT 96–98; BMI 44.5
[2024-05-01] MEDS: Acetaminophen 325 MG Tablet 650 MG PO (03:37)
[2024-05-01] MEDS: Levothyroxine 100 MCG Tablet PO (06:29)
[2024-05-01 07:11] LABS: Hematocrit 27.9 % (37-47); Hemoglobin 9.1 g/dL (12.0-15.0); Mean Corp Hgb Conc 32.6 g/dL (32-36); Mean Corpuscular Hgb 34.1 pg (27.0-32.0); Mean Corpuscular Volume 104.5 fL (81-99); POSITIVE COUNT YES; POSITIVE MORPHOLOGY YES; RBC Distribution Width CV 19.3 % (11.6-14.6); RBC Distribution Width SD 70.5 fl (35.1-43.9); Red Blood Count 2.67 M/mm3 (4.2-5.4); White Blood Count 5.3 K/mm3 (4.4-11.0)
[2024-05-01 07:29] LABS: Differential Indicated MANUAL DIFF; Platelet Count 11 K/mm3 (150-450)
[2024-05-01 07:40] LABS: Anion Gap 6 (5-15); BUN 31 mg/dL (7-18); BUN/Creat Ratio 43.1 RATIO (10-20); Calcium,Total 8.7 mg/dL (8.5-10.1); Chloride 106 mmol/L (98-107); Creatinine, Serum 0.72 mg/dL (0.55-1.02); EST Glomerular Filtration Rate 85 mL/min (>60); Est Glom Filt Rate - Afr Amer 103 mL/min (>60); Estimated Creatinine Clearance 55.25 ml/min; Glucose 98 mg/dL (74-106); Potassium 4.3 mmol/L (3.5-5.1); Sodium Level 137 mmol/L (136-145)
[2024-05-01] MEDS: Spironolactone 25 MG Tablet PO (08:06)
[2024-05-01] MEDS: Ramipril 2.5 MG Capsule PO (08:06)
[2024-05-01] MEDS: Phenytoin Na 100 MG Capsule PO (08:06)
[2024-05-01] MEDS: Metoprolol(XL)Succ 25 MG Tablet PO ×2 (08:06→20:54)
[2024-05-01] MEDS: Nitrofurantoin Macrocrystals 100 MG Capsule PO (08:06)
[2024-05-01] MEDS: Hydrocortisone 2.5% Ointment 20 gm tube 1 APPLIC TOPICAL ×2 (08:06→20:53)
--- NOTE | 2024-05-01 08:33 | PN.HOSP_ITS ---
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) Subjective Subjective Patient is a 73-year-old lady with history of learning disability with chronic thrombocytopenia who was sent from her oncologist office with platelet count of Objective Data Objective Data Vital Signs: Vital Signs Temp Pulse Resp BP Pulse Ox O2 Del Method 98.0 F 65 16 122/57 H 97 Room Air 05/01/24 08:01 05/01/24 08:06 05/01/24 08:01 05/01/24 08:01 05/01/24 08:01 05/01/24 08:01 Oxygen Delivery Method Room Air Weight: 67.4 kg Body Mass Index (BMI) 44.5 Intake & Output: Intake and Output for Last 24 Hours 04/29/24 04/30/24 05/01/24 23:59 23:59 23:59 Intake Total 1442 / 1442 1855.00 / 2155.00 500 / 500 Balance 1442 / 1442 1855.00 / 2155.00 500 / 500 Lab / Micro Data 05/01/24 06:27 05/01/24 06:27 Labs: Laboratory Results - last 24 hr 05/01/24 06:27: WBC 5.3, RBC 2.67 L, Hgb 9.1 L, Hct 27.9 L, MCV 104.5 H, MCH 34.1 H, MCHC 32.6, RDW Std Deviation 70.5 H, RDW Coeff of Marichuy 19.3 H, Plt Count 11 L*, Neut % (Auto) Not Reportable, Sodium 137, Potassium 4.3, Chloride 106, Carbon Dioxide 26.0, Anion Gap 6, BUN 31 H, Creatinine 0.72, Estim Creat Clear Calc 55.25, Est GFR (MDRD) Af Amer 103, Est GFR (MDRD) Non-Af 85, BUN/Creatinine Ratio 43.1 H, Glucose 98, Calcium 8.7 Physical Exam Narrative GENERAL: cooperative HEENT: Atraumatic; normocephalic EYES; Anicteric, Normal Conjunctiva NECK; supple, normal thyroid, RESPIRATORY: Diminished to auscultation CARDIOVASCULAR: Regular S1 S2, GI: soft, normoactive bowel sounds, : No Renal angle tenderness; EXTREMITIES: No edema, no clubbing, MUSCULOSKELETAL: no muscle wasting NEURO: Awake; no lateralizing signs. SKIN: No Rash PSYCH; Flat affect Assessment & Plan Assessment/Plan (1) Pancytopenia: PLAN: Plan Patient is a 73-year-old lady with history of learning disability with chronic thrombocytopenia who was sent from her oncologist office with platelet count of 2. 1. Acute on chronic thrombocytopenia ? 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 Patient was treated with high-dose pulsed dexamethasone in addition to IVIG and prophylactic platelet count transfusion. With patient platelet count being 11 as of 05/01/2024 and order was given for patient to be transfused with 1 unit of apheresis platelets 2. Pancytopenia ? Recent bone marrow performed by Dr. Sánchez was apparently nondiagnostic plan is for patient to follow up with oncology #3. Seizure disorder ? Patient is on phenytoin which has pancytopenia as well as thrombocytopenia as one of the side effect. Given above Afinitor was discontinued patient started on Keppra 4. Learning disability ? Patient was born with microcephaly. Her learning disability complicate care 5. Osteoporosis ? Patient is on cholecalciferol as well as denosumab 6. Hypothyroidism ? Patient is on levothyroxine home dose continued 7. DVT prophylaxis bilateral -SCDs Time spent in the patient's overall evaluation,decision-making process, review of diagnostic data, adjustment of management, discussion with other providers, nursing nursing and ancillary staff involved in patient's care documentation, 50 Minutes Charges/Coding Visit Charges Inpatient E&M: 70997 [facility] [[email or web address] Hosp L3
[2024-05-01 09:19] LABS: Anisocytosis 1+; Eosinophil 3 % (0-5); Lymphocyte 30 % (19-41); Metamyelocyte 2 % (0-1); Monocyte 7 % (0-10); Myelocyte 1 % (0-0); Neutrophil-Band 1 % (0-5); Neutrophil-Segmented 56 % (47-70); Total Cells Counted 100 (MANUAL DIFF)
[2024-05-01 09:20] LABS: Platelet Estimate MKD DEC (ADEQ)
[2024-05-01 13:47] LABS: Pathologist Review Reviewed
[2024-05-01 13:51] LABS: Pathologist Review Reviewed
[2024-05-01 13:53] LABS: Pathologist Review Reviewed
[2024-05-01 13:55] LABS: Pathologist Review Reviewed
--- NOTE | 2024-05-01 14:27 | NURSING ---
pt brother just arrived to bedside. states would like update on POC and discharge. will text DR. Hdez to inform him of such. family states pt is scheduled to have kidney and liver ultrasound as outpatient this coming Wednesday at 0915 and are asking if that can be done while pt is here.
--- NOTE | 2024-05-01 14:37 | NURSING ---
spoke with Blood bank regarding PLT and order to transfuse 1 held units. Blood bank states nothing on hold to give. per Blood bank need another order itself to order a unit of platelets.
[2024-05-01] MEDS: 0.9% Saline Lock 10 ML Syringe IV ×3 (17:07→23:11)
[2024-05-01] MEDS: IMMUNE GLOBULIN IV (17:07)
--- NOTE | 2024-05-01 20:09 | NURSING ---
Verified with sunita in pharmacy about the rate of infusion for IVIG. The order was for 400 ml but came in two 200 ml bottles Verified rate with Bianca MÉNDEZ.
--- NOTE | 2024-05-01 20:46 | NURSING ---
called lab to check on platelets. they stated patient would need a new type and screen. ordered.
[2024-05-01] MEDS: levETIRAcetam 500 MG Tablet PO (20:55)
--- NOTE | 2024-05-01 22:06 | NURSING ---
THIS RN ACCESSED THIS PT'S CHART TO ASSIST PRIMARY RN KATARINA W/TECHNICAL ISSUE.
[2024-05-01] MEDS: Immune Globulin 5 GM 5 GM/50 ML VIAL IV (22:07)
[2024-05-01] MEDS: 0.9% Normal Saline (500mL Bag) 500 ML 15 ML IV (23:11)
[2024-05-02 00:14] VITALS: BP 148/79; PULSE 75; RESP 16; TEMP 36.8; O2SAT 97
[2024-05-02 01:35] VITALS: BMI 44.5
[2024-05-02 05:29] VITALS: BP 143/81; PULSE 74; RESP 16; TEMP 36.9; O2SAT 98
[2024-05-02] MEDS: Levothyroxine 100 MCG Tablet PO (05:31)
--- NOTE | 2024-05-02 07:00 | US_ITS ---
STUDY: ABDOMINAL ULTRASOUND - RIGHT UPPER QUADRANT REASON FOR VISIT: Female, 73 years old ITP TECHNIQUE: Ultrasound evaluation of the right upper quadrant was performed with real-time and static sneed-scale imaging. TECHNICAL QUALITY: Limited. Examination limited due to the patient?s condition and bowel gas. COMPARISON: None. FINDINGS: Liver: The liver measures 16.6 cm. There is a heterogeneous echogenicity of the liver. The bile ducts are within normal limits. There is hepatic color flow. The direction of portal flow is hepatopetal. There is no demonstrated mass lesion. Gallbladder: There is a markedly distended gallbladder. The gallbladder wall measures 3 mm. There is no pericholecystic fluid. There are multiple echogenic structures within the gallbladder, consistent with multiple gallstones. It appears the technologist did not evaluate for Woods''s sign. Common Bile Duct (C.B.D.): The common bile duct measures 4 mm. Pancreas: Normal size of the head, body of the pancreas. Tail of the pancreas is suboptimally seen. There is normal echogenicity of the pancreas. There is no demonstrated pancreatic mass or cyst. Right Kidney: Normal size of the right kidney. The right kidney measures 10.8 cm. Normal renal cortex. The right cortex measures 1. cm. There is no demonstrated renal mass or cyst. There is no right hydronephrosis. US/Liver IMPRESSION: Limited as above. There are multiple echogenic structures within the gallbladder, consistent with multiple gallstones. It appears the technologist did not evaluate for Woods''s sign. Heterogeneous liver. Electronically Signed: Logan Mai MD at 23:10 EST ,
--- NOTE | 2024-05-02 07:00 | US_ITS ---
STUDY: RENAL ULTRASOUND - COMPLETE REASON FOR EXAM: Female, 73 years old. ITP TECHNIQUE: Ultrasound evaluation of the kidneys was performed with real-time and static hall-scale imaging. COMPARISON: 05/05/2019. FINDINGS: Exam limited by bowel gas and patient condition. RIGHT KIDNEY: Normal location of the right kidney, which is normal in size. The right kidney measures 10.8 x 4.8 x 4.8 cm. There is a normal cortex of the right kidney. The renal cortex measures 1.0 cm. There is no right renal mass or cyst. There are no right renal calculi. There is no right hydronephrosis. DISTAL RIGHT URETER: There is non-visualization of the distal right ureter. There is no demonstrated right ureterovesical junction calculus. There is no demonstrated right ureteral jet. LEFT KIDNEY: Normal location of the left kidney, which is normal in size. The left kidney measures 10.2 x 4.2 x 5.1 cm. There is a normal cortex of the left kidney. The renal cortex measures 1.0 cm. There is no left renal mass or cyst. There are no left renal calculi. There is no left hydronephrosis. DISTAL LEFT URETER: There is non-visualization of the distal left ureter. There is no demonstrated left ureterovesical junction calculus. There is no demonstrated left ureteral jet. BLADDER: The distended urinary bladder has a volume of 579 ml. There is a normal wall thickness of the distended urinary bladder. There is no demonstrated mass within the urinary bladder. There are no demonstrated bladder calculi. US/Kidney and Bladder IMPRESSION: Normal ultrasound of the kidneys and urinary bladder. Electronically Signed: Logan Mai MD at 23:57 EST ,
[2024-05-02 07:01] LABS: Hematocrit 28.7 % (37-47); Hemoglobin 9.3 g/dL (12.0-15.0); Mean Corp Hgb Conc 32.4 g/dL (32-36); Mean Corpuscular Hgb 33.3 pg (27.0-32.0); Mean Corpuscular Volume 102.9 fL (81-99); Mean Platelet Vol. 13.1 fl (6.2-12.0); POSITIVE COUNT YES; POSITIVE MORPHOLOGY YES; Platelet Count 19 K/mm3 (150-450); RBC Distribution Width CV 18.6 % (11.6-14.6); RBC Distribution Width SD 66.4 fl (35.1-43.9); Red Blood Count 2.79 M/mm3 (4.2-5.4); White Blood Count 6.4 K/mm3 (4.4-11.0)
--- NOTE | 2024-05-02 07:14 | PCM.PN.HOSP ---
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 Patient was transfused with 1 unit of apheresis platelets on 05/02/2024 Objective Data Objective Data Vital Signs: Vital Signs Temp Pulse Resp BP Pulse Ox O2 Del Method 98.4 F 74 16 143/81 H 98 Room Air 05/02/24 05:29 05/02/24 05:29 05/02/24 05:29 05/02/24 05:29 05/02/24 05:29 05/02/24 05:29 Oxygen Delivery Method Room Air Weight: 67.4 kg Body Mass Index (BMI) 44.5 Intake & Output: Intake and Output for Last 24 Hours 04/30/24 05/01/24 05/02/24 23:59 23:59 23:59 Intake Total 1855.00 / 2155.00 1400.00 / 1412.25 333.25 / 333.25 Balance 1855.00 / 2155.00 1400.00 / 1412.25 333.25 / 333.25 Lab / Micro Data 05/02/24 06:24 05/02/24 06:24 Labs: Laboratory Results - last 24 hr 04/28/24 04:15: Diff Path Review Reviewed 04/29/24 09:12: Diff Path Review Reviewed 04/30/24 04:20: Diff Path Review Reviewed 05/01/24 06:27: WBC 5.3, RBC 2.67 L, Hgb 9.1 L, Hct 27.9 L, MCV 104.5 H, MCH 34.1 H, MCHC 32.6, RDW Std Deviation 70.5 H, RDW Coeff of Marichuy 19.3 H, Plt Count 11 L*, Neut % (Auto) Not Reportable, Absolute Neuts (auto) 3.0, Absolute Lymphs (auto) 1.60, Total Counted 100, Neutrophils % (Manual) 56, Band Neutrophils % 1, Lymphocytes % (Manual) 30, Monocytes % (Manual) 7, Eosinophils % (Manual) 3, Metamyelocytes % 2 H, Myelocytes % 1 H, Diff Path Review Reviewed, Platelet Estimate MKD DEC, Anisocytosis 1+, Sodium 137, Potassium 4.3, Chloride 106, Carbon Dioxide 26.0, Anion Gap 6, BUN 31 H, Creatinine 0.72, Estim Creat Clear Calc 55.25, Est GFR (MDRD) Af Amer 103, Est GFR (MDRD) Non-Af 85, BUN/Creatinine Ratio 43.1 H, Glucose 98, Calcium 8.7 05/01/24 21:35: Blood Type B NEGATIVE, Antibody Screen NEGATIVE Physical Exam Narrative GENERAL: cooperative HEENT: Atraumatic; normocephalic EYES; Anicteric, Normal Conjunctiva NECK; supple, normal thyroid, RESPIRATORY: Diminished to auscultation CARDIOVASCULAR: Regular S1 S2, GI: soft, normoactive bowel sounds, : No Renal angle tenderness; EXTREMITIES: No edema, no clubbing, MUSCULOSKELETAL: no muscle wasting NEURO: Awake; no lateralizing signs. SKIN: No Rash PSYCH; Flat affect Assessment & Plan Assessment/Plan (1) Pancytopenia: PLAN: Plan Patient is a 73-year-old lady with history of learning disability with chronic thrombocytopenia who was sent from her oncologist office with platelet count of 2. 1. Acute on chronic thrombocytopenia ? 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 Patient was treated with high-dose pulsed dexamethasone in addition to IVIG and prophylactic platelet count transfusion. With patient platelet count being 11 as of 05/01/2024 and order was given for patient to be transfused with 1 unit of apheresis platelets -Patient platelet count up to 19 after receiving IVIG. Patient was transfused with 1 unit of apheresis platelets on 05/02/2024. Platelet count up to 19. Case was discussed with Dr. Sánchez the day prior plan is for patient to be discharged with twice weekly CBC with differential check for patient to follow-up with heme-onc as outpatient 2. Pancytopenia ? Recent bone marrow performed by Dr. Sánchez was apparently nondiagnostic plan is for patient to follow up with oncology #3. Seizure disorder ? Patient is on phenytoin which has pancytopenia as well as thrombocytopenia as one of the side effect. Given above Afinitor was discontinued patient started on Keppra 4. Learning disability ? Patient was born with microcephaly. Her learning disability complicate care 5. Osteoporosis ? Patient is on cholecalciferol as well as denosumab 6. Hypothyroidism ? Patient is on levothyroxine home dose continued Charges/Coding Visit Charges Inpatient E&M: 74062 Subs Hosp L2
[2024-05-02 07:42] LABS: Differential Indicated MANUAL DIFF
[2024-05-02 08:05] LABS: Anion Gap 7 (5-15); BUN 24 mg/dL (7-18); BUN/Creat Ratio 30.8 RATIO (10-20); Calcium,Total 9.2 mg/dL (8.5-10.1); Chloride 103 mmol/L (98-107); Creatinine, Serum 0.78 mg/dL (0.55-1.02); EST Glomerular Filtration Rate 77 mL/min (>60); Est Glom Filt Rate - Afr Amer 94 mL/min (>60); Estimated Creatinine Clearance 55.25 ml/min; Glucose 103 mg/dL (74-106); Phosphorus 4.1 mg/dL (2.5-4.9); Potassium 4.6 mmol/L (3.5-5.1); Sodium Level 135 mmol/L (136-145)
[2024-05-02 08:23] LABS: Anisocytosis 1+; Lymphocyte 25 % (19-41); Metamyelocyte 1 % (0-1); Monocyte 2 % (0-10); Neutrophil-Band 2 % (0-5); Neutrophil-Segmented 70 % (47-70); Platelet Estimate MKD DEC (ADEQ); Red Cell Morphology N CHROM NORMAL (NORM C&C); Total Cells Counted 100 (MANUAL DIFF)
[2024-05-02 08:24] LABS: Absolute Neutrophil Count 4.6 X10^3/uL (2.0-7.7)
[2024-05-02 09:03] VITALS: BP 109/66; PULSE 68; RESP 18; TEMP 36.6; O2SAT 97
[2024-05-02 09:09] VITALS: PULSE 68
[2024-05-02] MEDS: Ramipril 2.5 MG Capsule PO (09:09)
[2024-05-02] MEDS: Spironolactone 25 MG Tablet PO (09:09)
[2024-05-02] MEDS: Metoprolol(XL)Succ 25 MG Tablet PO (09:09)
[2024-05-02] MEDS: levETIRAcetam 500 MG Tablet PO (09:09)
[2024-05-02] MEDS: Nitrofurantoin Macrocrystals 100 MG Capsule PO (09:09)
[2024-05-02] MEDS: Hydrocortisone 2.5% Ointment 20 gm tube 1 APPLIC TOPICAL (09:10)
--- NOTE | 2024-05-02 09:20 | CASEMGMT ---
Addendum entered by Candi Skelton 05/02/24 10:33: HONEY MULLER into pt room, pt aware that [facility] will be seeing her in her home. Pt states she wants to go home. Pt denies any further needs. Addendum entered by Candi Skelton 05/02/24 10:26: Received tc back from Michelle, she is aware that HHC will start on . She is also aware that the hospitalist would like the Prolia to be addressed as an outpt. She states she will call pt PCP to discuss. She states she will be in approx 3:30pm to pick pt up for dc. She denies further questions at this time. Addendum entered by Candi Skelton 05/02/24 10:18: Receved acceptance from [facility] for pt and SOC will be on . TC to jessie Martinez, left requesting call be returned. Original Note: TC to pt trice Gamboa to discuss [facility] services for pt as hospitalist would like monitoring of her labs. He states that he prefers the caregiver Michelle Cuenca make the decision on which agency as she most likely has experience with this. Asked him if he would like a tc back on the agency that will see pt and that she chose. He states he trusts her decision. TC to Michelleroderick Brockam, discussed HHC, she states she would like a local agency as winter is coming and she does not want the service to be disrupted by being unable to get to the home. Discussed local agencies and star ratings. Offered to email or text the list to her. She has chosen [facility] and does not want a list sent. She states Vesna has an upstairs bedroom, will add PT on to [facility] for an eval. Michelle states she has to take her other clients to get a Prolia shot today at 2:30 and would not be able to pick pt up until after. She asks if Vesna can have her Prolia shot. Message sent to hospitalist who would like this to be addressed as an outpt. TC to Nova at [facility], referral made, will await decision to accept.
--- NOTE | 2024-05-02 10:04 | PCM.DC.SUM ---
Providers Date of Admission: 04/25/24 Date of Discharge: 05/02/24 Primary Care Physician: Dr. Everett Ruelas, DO Consultations 04/25/24 16:54 Consult: Oncology/Hematology Routine Consulting Provider: [facility] ([facility]) Reason for Consult: Acute ITP EMERGENT Consult: No MD Notified: Yes Date Notified: 04/25/24 Time Notified: 15:15 Method of Notification: ED Physician Initiated Consult: Tele-Neurology Routine Consulting Provider: [facility] Reason for Consult: Consideration alternate AED, has ITP, on phenytoin EMERGENT Consult: No MD Notified: Yes Date Notified: 04/25/24 Time Notified: 17:24 Method of Notification: Answering Service Comments:: , [facility] Staff Notify [facility] of Tele-Neurology Consult: Yes Reason For Visit: ITP Diagnosis Discharge Diagnosis (1) Pancytopenia: Status: Chronic Code(s): D61.818 - Other pancytopenia Plan Patient is a 73-year-old lady with history of learning disability with chronic thrombocytopenia who was sent from her oncologist office with platelet count of 2. 1. Acute on chronic thrombocytopenia ? 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 Patient was treated with high-dose pulsed dexamethasone in addition to IVIG and prophylactic platelet count transfusion. With patient platelet count being 11 as of 05/01/2024 and order was given for patient to be transfused with 1 unit of apheresis platelets -Patient platelet count up to 19 after receiving IVIG. Patient was transfused with 1 unit of apheresis platelets on 05/02/2024. Platelet count up to 19. Case was discussed with Dr. Sánchez the day prior plan is for patient to be discharged with twice weekly CBC with differential check for patient to follow-up with heme-onc as outpatient 2. Pancytopenia ? Recent bone marrow performed by Dr. Sánchez was apparently nondiagnostic plan is for patient to follow up with oncology #3. Seizure disorder ? Patient is on phenytoin which has pancytopenia as well as thrombocytopenia as one of the side effect. Given above Afinitor was discontinued patient started on Keppra 4. Learning disability ? Patient was born with microcephaly. Her learning disability complicate care 5. Osteoporosis ? Patient is on cholecalciferol as well as denosumab 6. Hypothyroidism ? Patient is on levothyroxine home dose continued Medications at Discharge Home Medications ramipril 2.5 mg tablet 2.5 mg PO QDAY blood pressure 11/15/17 spironolactone 25 mg tablet 25 mg PO QDAY 25mg 11/15/17 metoprolol succinate 25 mg tablet,extended release 24 hr 25 mg PO BID 11/17/18 acetaminophen 325 mg capsule (Tylenol) 650 mg PO BID PRN Fever 01/26/20 denosumab 60 mg/mL subcutaneous syringe (Prolia) 60 mg subcut [id number] 02/09/23 handicap placcard #1 ea 02/09/23 cholecalciferol (vitamin D3) 50 mcg (2,000 unit) capsule (D3-2000) 50 mcg PO DAILY 07/23/23 levothyroxine 100 mcg tablet 100 mcg PO DAILY 02/16/24 nitrofurantoin monohydrate/macrocrystals 100 mg capsule 1 cap PO DAILY 02/16/24 levetiracetam 500 mg tablet 500 mg PO BID #120 tabs 05/02/24 Hospital Course Summary of Care Provided Minutes Spent on Discharge: 32 Physical Exam Narrative GENERAL: cooperative HEENT: Atraumatic; normocephalic EYES; Anicteric, Normal Conjunctiva NECK; supple, normal thyroid, RESPIRATORY: Diminished to auscultation CARDIOVASCULAR: Regular S1 S2, GI: soft, normoactive bowel sounds, : No Renal angle tenderness; EXTREMITIES: No edema, no clubbing, MUSCULOSKELETAL: no muscle wasting NEURO: Awake; no lateralizing signs. SKIN: No Rash PSYCH; Flat affect Weight / BMI Weight Weight: 67.4 kg Body Mass Index (BMI) 44.5 ABG / Lab / Microbiology Data 05/02/24 06:24 05/02/24 06:24 Laboratory: Laboratory Results - last 24 hr 04/28/24 04:15: Diff Path Review Reviewed 04/29/24 09:12: Diff Path Review Reviewed 04/30/24 04:20: Diff Path Review Reviewed 05/01/24 06:27: Diff Path Review Reviewed 05/01/24 21:35: Blood Type B NEGATIVE, Antibody Screen NEGATIVE 05/02/24 06:24: WBC 6.4, RBC 2.79 L, Hgb 9.3 L, Hct 28.7 L, MCV 102.9 H, MCH 33.3 H, MCHC 32.4, RDW Std Deviation 66.4 H, RDW Coeff of Marichuy 18.6 H, Plt Count 19 L*, MPV 13.1 H, Neut % (Auto) Not Reportable, Absolute Neuts (auto) 4.6, Absolute Lymphs (auto) 1.60, Total Counted 100, Neutrophils % (Manual) 70, Band Neutrophils % 2, Lymphocytes % (Manual) 25, Monocytes % (Manual) 2, Metamyelocytes % 1, Diff Path Review May foll, Platelet Estimate MKD DEC, RBC Morphology N CHROM, Anisocytosis 1+, Sodium 135 L, Potassium 4.6, Chloride 103, Carbon Dioxide 25.0, Anion Gap 7, BUN 24 H, Creatinine 0.78, Estim Creat Clear Calc 55.25, Est GFR (MDRD) Af Amer 94, Est GFR (MDRD) Non-Af 77, BUN/Creatinine Ratio 30.8 H, Glucose 103, Calcium 9.2, Phosphorus 4.1, Magnesium 2.0 D/C Instructions Discharge Diet: No restrictions Discharge Activity: Return to Normal Activity Call your doctor if you observe: Fever of 101 or Higher, Shortness of breath, Fainting spells and Chest pain DC O2, CPAP, BIPAP Needs Additional Home O2 Discharge instructions: No DC home with Oxygen: No Meaningful Use Info Meaningful Use Meaningful Use Diagnoses (Choose all that apply): None applicable Ischemic Stroke Statin Dosing Therapy Reference: STATIN DOSE THERAPY REFERENCE: * Patients > 75 years receive moderate or high dose statin therapy. * Patients 75 years or YOUNGER should receive HIGH intensity statin dose unless contraindicated. You will be required to document reason for non-treatment if statin daily dose does not meet guidelines. HIGH DOSE STATIN THERAPY DAILY Atorvastatin > than or = to 40 mg Rosuvastatin > than or = to 20 mg Amlodipine + Atorvastatin > than or = to 2.5/40 mg Ezetimibe + Simvastatin 10/80 mg Simvastatin 80mg Discharge Plan Admission Admit Date/Time: 04/25/24 15:14 Attending Provider: Dax Hdez Primary Care Provider: Everett Ruelas Consulting Providers: Dax Mckee; Apolinar Pedraza; Cheryl Sánchez; Stu Spencer; Cesar Borja; Jose Laguerre; Zack Bates; Felisa Echeverria NP; Adrian Sylvester; Claudia Valdez; Acacia Yarbrough; Belinda Green; Marina Wyatt; Hemanth Miller; Nisa Boo; Aris Astorga; Jose Gaytan; Dax Hinojosa; Evelyne Temple; Derrek Palomo; Toshia Chowdhury; Hector Carranza; Luis Miguel Beth; Aris Frey; Wilian Escobedo; Berny Contreras; Fern Smith; Padilla Pruitt; Shelia Galan; Everett Aquino; Scooter Wong Discharge Orders/Prescriptions Prescriptions: New levetiracetam 500 mg Tablet 500 mg PO BID Qty: 120 0RF Continued spironolactone 25 mg tablet 25 mg PO QDAY ramipril 2.5 mg tablet 2.5 mg PO QDAY metoprolol succinate 25 mg tablet extended release 24 hr 25 mg PO BID acetaminophen [Tylenol] 325 mg capsule 650 mg PO BID PRN (Reason: Fever) Prolia 60 mg/mL syringe 60 mg subcut [id number] (DME) handicap placcard See Rx Instructions .Route .MEDSUPPLY Qty: 1 0RF Rx Instructions: Dx: debility Exp: 01/2028 cholecalciferol (vitamin D3) [D3-2000] 50 mcg (2,000 unit) capsule 50 mcg PO DAILY levothyroxine 100 mcg tablet 100 mcg PO DAILY nitrofurantoin monohyd/m-cryst 100 mg capsule 1 cap PO DAILY Discontinued phenytoin sodium extended [Dilantin Extended] 100 mg capsule 100 mg PO BID Other Ambulatory Orders: Basic Metabolic Profile (BMP) (QWEEK) Timeframe: [id number] Facility: [facility] - Location: Laboratory Ordered By: Dr. Dax Hdez Basic Metabolic Profile (BMP) (QWEEK) Timeframe: [id number] Facility: [facility] - Location: Laboratory Ordered By: Dr. Dax Hdez Basic Metabolic Profile (BMP) (QWEEK) Timeframe: [id number] Facility: [facility] - Location: Laboratory Ordered By: Dr. Dax Hdez Basic Metabolic Profile (BMP) (QWEEK) Timeframe: [id number] Facility: [facility] - Location: Laboratory Ordered By: Dr. Dax Hdez Basic Metabolic Profile (BMP) (QWEEK) Timeframe: [id number] Facility: [facility] - Location: Laboratory Ordered By: Dr. Dax Hdez Basic Metabolic Profile (BMP) (QWEEK) Timeframe: [id number] Facility: [facility] - Location: Laboratory Ordered By: Dr. Dax Hdez Basic Metabolic Profile (BMP) (QWEEK) Timeframe: [id number] Facility: [facility] - Location: Laboratory Ordered By: Dr. Dax Hdez Basic Metabolic Profile (BMP) (QWEEK) Timeframe: [id number] Facility: [facility] - Location: Laboratory Ordered By: Dr. Dax Hdez Referrals / Follow Up: Apolinar Pedraza MD [Med Staff - Active Staff] - 05/04/24 Everett Ruelas DO [Primary Care Provider] - Within 2 Weeks Disposition Disposition (needs filled in before D/C Order can be placed): Home Health Service
--- NOTE | 2024-05-02 10:31 | PHA.DC.MR.R ---
Pharmacy [place] Med Reconciliation Pharmacy Service has performed discharge medication reconciliation for this patient. The patient's discharge medication list was reviewed for discrepancies and discrepancies were resolved. Medications at Discharge Home Medications ramipril 2.5 mg tablet 2.5 mg PO QDAY blood pressure 11/15/17 spironolactone 25 mg tablet 25 mg PO QDAY 25mg 11/15/17 metoprolol succinate 25 mg tablet,extended release 24 hr 25 mg PO BID 11/17/18 acetaminophen 325 mg capsule (Tylenol) 650 mg PO BID PRN Fever 01/26/20 denosumab 60 mg/mL subcutaneous syringe (Prolia) 60 mg subcut [id number] 02/09/23 handicap placcard #1 ea 02/09/23 cholecalciferol (vitamin D3) 50 mcg (2,000 unit) capsule (D3-2000) 50 mcg PO DAILY 07/23/23 levothyroxine 100 mcg tablet 100 mcg PO DAILY 02/16/24 nitrofurantoin monohydrate/macrocrystals 100 mg capsule 1 cap PO DAILY 02/16/24 levetiracetam 500 mg tablet 500 mg PO BID #120 tabs 05/02/24
[2024-05-02 14:09] VITALS: BP 120/55; PULSE 77; RESP 18; TEMP 36.7; O2SAT 98
[2024-05-04 09:04] LABS: Pathologist Review Reviewed
== END 2024-05-02 16:15 | disposition home health service (06) | DRG 813 ==
LOC: ED 13:42 → MS3 16:14
PROVIDERS: Hospitalist; Internal Medicine; Admitting Provider Family Medicine; Emergency Provider Emergency Medicine; PCP Family Medicine; Visit Provider Internal Medicine
DX: D69.3 Immune thrombocytopenic purpura (principal); D61.818 Other pancytopenia; Z68.42 Body mass index [BMI] 45.0-49.9, adult; I42.8 Other cardiomyopathies; G40.909 Epilepsy, unspecified, not intractable, without status epilepticus; I12.9 Hypertensive chronic kidney disease with stage 1 through stage 4 chronic kidney disease, or unspecified chronic kidney disease; Q02 Microcephaly; E66.01 Morbid (severe) obesity due to excess calories; N18.2 Chronic kidney disease, stage 2 (mild); I44.7 Left bundle-branch block, unspecified; E78.5 Hyperlipidemia, unspecified; L20.9 Atopic dermatitis, unspecified; Z79.899 Other long term (current) drug therapy
CPT/HCPCS: 36415; 70450; 76705; 76770; 80048; 80053; 81001; 83735; 84100; 85025; 85027; 85610; 85730; 86850; 86900; 86901; 86920; 86965; 94668; 97110; 97116; 97162; 97165; 97530; 97535; 99285; J7040; P9016; P9035; A4216; J1568

== ENCOUNTER 2024-05-04 11:42 | Emergency (ER) | payer MEDICARE, MEDICAID, SELFPAY ==
[2024-05-04 11:44] VITALS: BP 126/71; PULSE 89; RESP 18; TEMP 36.1; O2SAT 97; BMI 45.1
[2024-05-04 11:47] VITALS: BP 134/78; PULSE 83; RESP 24; TEMP 36.6; O2SAT 98
--- NOTE | 2024-05-04 11:59 | EX.ED.DYSGE1 ---
HPI History of Present Illness Chief Complaint: Weakness Detail of Chief Complaint: Weakness, epistaxis Informant: family Onset/Context/Timing Onset: Today Context: Sudden Onset Timing: Continuous Quality: Difficult to assess since patient does not say much and answers no to all q Location: Hematologic, recent diagnosis of ITP Current Severity: Unable to determine Maximum Severity: Unable to determine Worsened by: Suspect ITP Relieved by: Not applicable Associated Symptoms Associated Symptoms: unable to determine since she has no complaints Narrative Narrative: Patient is a 73-year-old female. She was admitted April 25 and seen by collection coordinator Dr. Downey she was diagnosed with ITP. Patient was discharged May 03. Patient does not say much. Daughter she lives with states she will voice no complaints because she has now had to be admitted to the hospital. History is very limited. Prior similar symptoms: Yes Recent Illness/Hospitalization: Yes [facility] Medical History Microcephaly Thyroid disease Bladder disease Easy bruising Seizures Non-smoker History of echocardiogram Hypertension Cardiology follow-up encounter Recurrent UTI (urinary tract infection) History of colon polyps Osteoporosis of lumbar spine Needle phobia Chronic sinusitis Thrombocytopenia Anemia Psoriasis of scalp Allergic rhinitis Left ventricular systolic dysfunction Hypothyroidism Nonischemic cardiomyopathy facial Erysipelas Seizure disorder Developmental disability Multinodular goiter LBBB (left bundle branch block) Hyperlipidemia Home Medications ?Medication ?Instructions ?Recorded ?Last Taken ?Type spironolactone 25 mg tablet 25 mg PO QDAY 25mg 11/15/17 05/04/24 History metoprolol succinate 25 mg 25 mg PO BID 11/17/18 05/04/24 History tablet,extended release 24 hr acetaminophen 325 mg capsule 650 mg PO BID PRN Fever 01/26/20 Unknown History (Tylenol) handicap placcard #1 ea 02/09/23 Unknown Rx cholecalciferol (vitamin D3) 50 50 mcg PO DAILY 07/23/23 05/04/24 History mcg (2,000 unit) capsule (D3-2000) levothyroxine 100 mcg tablet 100 mcg PO DAILY 02/16/24 05/04/24 History nitrofurantoin 1 cap PO DAILY 02/16/24 05/04/24 History monohydrate/macrocrystals 100 mg capsule levetiracetam 500 mg tablet 500 mg PO BID #120 tabs 05/02/24 05/04/24 Rx ramipril 2.5 mg capsule 2.5 mg PO DAILY 05/04/24 05/04/24 History Allergy/AdvReac Type Severity Reaction Status Date / Time clindamycin Allergy Mild rash Verified 04/25/24 12:32 Family History Father TIA (transient ischemic attack) Colon cancer Mother Cancer brain Surgical History History of nasal surgery Hx of colonoscopy Hx of nasal polypectomy History of left heart catheterization (11/2007) History of foot surgery History of thyroidectomy Social History household members: other details: Residential living current occupational status: retired current occupation: Retired from [employer] Smoking Status: Never smoker alcohol intake: never substance use type: does not use additional social history: Has Legal Guardian and Provider ROS ROS ED Review of Systems ROS Unobtainable: due to mental status ENT ENT ED: Reports other Details: Epistaxis and redness to eye EXAM Physical Exam Const Vital Signs: 05/04/24 11:44 05/04/24 11:47 05/04/24 11:57 Temperature 96.9 F L 98 F Temperature Source Temporal Oral Pulse Rate 89 83 Respiratory Rate 18 24 H Respiratory Effort Normal Non-Labored Respiratory Pattern Normal Blood Pressure 126/71 H 134/78 H Blood Pressure Mean 89 96 Pulse Ox 97 98 Oxygen Delivery Method Room Air Room Air 05/04/24 12:47 Temperature 97.6 F L Temperature Source Temporal Pulse Rate 75 Respiratory Rate 24 H Respiratory Effort Respiratory Pattern Blood Pressure 134/62 H Blood Pressure Mean 86 Pulse Ox 94 Oxygen Delivery Method Room Air Positive well nourished and well developed General Appearance ED: well developed and NAD; Negative for cyanotic or diaphoretic HEENT Reports dry mucous membranes HEENT Narrative: Blood is noted in the right and left S2. There is no blood or source of bleeding over the right or left septum. Source is unknown. There is no blood posteriorly i.e. pharynx Mouth ED: Yes dry mucous membranes Mouth: dry mucous membranes Eyes PERRL and EOMs intact bilaterally Eyes Narrative: Conjunctival petechiae noted. The right conjunctive is slightly injected. General Eye ED: Negative for scleral icterus Neck no lymphadenopathy, supple and no JVD Chest Wall inspection of chest normal and palpation of chest normal Resp normal respiratory effort and clear to auscultation bilaterally Cardio regular rate, regular rhythm, S1 normal heart sound, S2 normal heart sound and no murmurs GI normal to inspection, nondistended, normoactive bowel sounds, non-tender, non-distended and hepatosplenomegaly Back/Spine no CVA tenderness Extremity Extremity Narrative: Patient has several bruises right and left upper extremity. She has petechiae over her extremities. Neuro CN's II-XII intact bilaterally and no sensory deficits noted Neuro Narrative: Unable to determine orientation. Motor Exam: strength 5/5 throughout Psych Psych Narrative: Flat affect Skin Skin Narrative: She appears pale. She has petechiae. MDM MDM MDM Narrative Medical decision making narrative: Will obtain CBC to assess white count and H&H. Also, to assess platelet count since concern is she has low platelet count again. BMP to assess renal function. Since there is history of recurrent urinary tract infection apparently she ran to the bathroom this morning will have nurse Her for urinalysis. Patient is not reliable to obtain a clean-catch specimen. History & Record Review Additional record(s) reviewed:: Prior inpatient record (Read Dr. Downey' hematology note, read the discharge summary authored by Dr. Wong.), Prior ED visit and Prior labs Lab Data Attestation: I reviewed the patient's lab results. Lab results narrative: Patient is anemic with an MCV of 103.8. Platelet count is 2. Labs: Laboratory Results - last 24 hr 05/04/24 05/04/24 12:05 12:23 WBC 7.8 RBC 2.93 L Hgb 10.1 L Hct 30.4 L MCV 103.8 H MCH 34.5 H MCHC 33.2 RDW Std Deviation 65.4 H RDW Coeff of [place] 17.6 H Plt Count 2 L* Immature Gran % (Auto) 1.900 H Neut % (Auto) 76.5 H Lymph % (Auto) 11.5 L Quay % (Auto) 8.2 Eos % (Auto) 1.5 Baso % (Auto) 0.4 Absolute Neuts (auto) 6.0 Absolute Lymphs (auto) 0.90 Nucleated RBC % 0 Diff Path Review May foll Platelet Estimate MKD DEC Anisocytosis 1+ Sodium 137 Potassium 4.5 Chloride 101 Carbon Dioxide 30.0 Anion Gap 6 BUN 23 H Creatinine 0.94 Estim Creat Clear Calc 46.93 Est GFR (MDRD) Af Amer 76 Est GFR (MDRD) Non-Af 63 BUN/Creatinine Ratio 24.6 H Glucose 101 Calcium 9.5 Total Bilirubin 0.50 AST 26 ALT 25 Alkaline Phosphatase 94 Total Protein 8.5 H Albumin 3.2 Globulin 5.3 H Albumin/Globulin Ratio 0.6 L Urine Color Straw Urine Clarity Clear Urine pH 7.0 Ur Specific [place] 1.005 Urine Protein Negative Urine Glucose (UA) Normal Urine Ketones Negative Urine Occult Blood 25 H Urine Nitrite Negative Urine Bilirubin Negative Urine Urobilinogen Normal Ur Leukocyte Esterase Negative Urine RBC 0-5 SEEN Urine WBC 5-10 SEEN Ur Squamous Epith Cells 0 SEEN Urine Bacteria 1+ Hyaline Casts 0-5 SEEN Urine Mucus 0 SEEN Management Discussion w/another healthcare provider: Hospitalist (Dr. Tyrell Millan apparently spoke with Dr. Vega. Patient was scheduled for an appointment to see Dr. Pedraza this afternoon. Patient has MDS. This discussion is regarding her CODE STATUS and patient to be made hospice.) and [employer] (Call was placed to Dr. Hightower. Will give patient dose of prednisone. Will discuss administering IVIG since she just received IVIG with recent admission. In my opinion since she has no active significant bleeding platelets are not indicated.) Discharge Plan Triage Chief Complaint: Weakness ED Provider: Obey Goff Dx/Rx/DC Orders Clinical Impression: Acute ITP, Nonischemic cardiomyopathy, Epistaxis, Anemia, macrocytic, MDS (myelodysplastic syndrome) Prescriptions: No Action spironolactone 25 mg tablet 25 mg PO QDAY metoprolol succinate 25 mg tablet extended release 24 hr 25 mg PO BID acetaminophen [Tylenol] 325 mg capsule 650 mg PO BID PRN (Reason: Fever) (DME) handicap placcard See Rx Instructions .Route .MEDSUPPLY Qty: 1 0RF Rx Instructions: Dx: debility Exp: 01/2028 cholecalciferol (vitamin D3) [D3-1999] 50 mcg (2,000 unit) capsule 50 mcg PO DAILY levetiracetam 500 mg Tablet 500 mg PO BID Qty: 120 0RF ramipril 2.5 mg capsule 2.5 mg PO DAILY levothyroxine 100 mcg tablet 100 mcg PO DAILY nitrofurantoin monohyd/m-cryst 100 mg capsule 1 cap PO DAILY Primary Care Provider: Everett Ruelas Referrals: Everett Ruelas DO [Primary Care Provider] - Activity Restrictions/Additional Instructions: Go to Dr. Pedraza's office to have a discussion regarding hospice care Print Language: Iraqi Disposition Disposition: Home, Self Care
[2024-05-04 12:13] LABS: Basophil% 0.4 % (0-1); Eosinophils% 1.5 % (0-5); Hematocrit 30.4 % (37-47); Hemoglobin 10.1 g/dL (12.0-15.0); Lymphocyte % 11.5 % (19-41); Mean Corp Hgb Conc 33.2 g/dL (32-36); Mean Corpuscular Hgb 34.5 pg (27.0-32.0); Mean Corpuscular Volume 103.8 fL (81-99); Monocyte% 8.2 % (0-10); Neutrophil # 5.96 X10^3/uL (2.7-7.7); Neutrophil % 76.5 % (47-70); POSITIVE COUNT YES; POSITIVE MORPHOLOGY YES; Platelet Count 2 K/mm3 (150-450); RBC Distribution Width CV 17.6 % (11.6-14.6); RBC Distribution Width SD 65.4 fl (35.1-43.9); Red Blood Count 2.93 M/mm3 (4.2-5.4); White Blood Count 7.8 K/mm3 (4.4-11.0)
[2024-05-04 12:14] LABS: Basophil# 0.03 X10^3/uL; Eosinophil# 0.12 X10^3/uL; Monocyte# 0.64 X10^3/uL; NRBC Flagged by Analyzer 0 % (0-5)
[2024-05-04 12:15] LABS: Differential Indicated SCAN CRITERIA MET
[2024-05-04] MEDS: MethylPREDNISolone 125 MG/2 ML Vial IV (12:26)
[2024-05-04 12:27] LABS: Mucous, Urine 0 SEEN /hpf (<or=2+); Squamous Epithelial Cells - UA 0 SEEN /hpf (5-10)
[2024-05-04 12:36] LABS: ALB/GLOB Ratio 0.6 RATIO (0.9-2.4); AST(SGOT) 26 U/L (15-37); Alanine Aminotransfer ALT/SGPT 25 U/L (13-56); Albumin, Serum 3.2 g/dL (3.2-5.0); Alkaline Phosphatase 94 U/L (45-117); Anion Gap 6 (5-15); BUN 23 mg/dL (7-18); BUN/Creat Ratio 24.6 RATIO (10-20); Calcium,Total 9.5 mg/dL (8.5-10.1); Chloride 101 mmol/L (98-107); Creatinine, Serum 0.94 mg/dL (0.55-1.02); EST Glomerular Filtration Rate 63 mL/min (>60); Est Glom Filt Rate - Afr Amer 76 mL/min (>60); Estimated Creatinine Clearance 46.93 ml/min; Globulin 5.3 g/dL (2.2-4.2); Glucose 101 mg/dL (74-106); Potassium 4.5 mmol/L (3.5-5.1); Protein, Total 8.5 g/dL (6.4-8.2); Sodium Level 137 mmol/L (136-145)
[2024-05-04 12:37] LABS: Color, Urine Straw (Yellow); Glucose, Dipstick Normal (Normal); Ketone-Dipstick Negative (Negative); Leukocyte Esterase-Dipstick Negative /ul (Negative); Nitrite-Dipstick Negative (Negative); Occult Blood-Urine 25 /ul (Negative); Protein-Dipstick Negative (Negative); Specific Gravity, Urine 1.005 (1.002-1.030); Urine Bilirubin Dipstick Negative (Negative); Urine Clarity Clear (Clear); Urine Urobilinogen Normal (Normal)
[2024-05-04 12:42] LABS: Anisocytosis 1+; Platelet Estimate MKD DEC (ADEQ)
[2024-05-04 12:47] VITALS: BP 134/62; PULSE 75; RESP 24; TEMP 36.4; O2SAT 94
[2024-05-04 12:50] LABS: Bacteria 1+ /hpf (None Seen); Hyaline Cast 0-5 SEEN /lpf (0-5); Red Blood Cells-Urine 0-5 SEEN /hpf (0-5); White Blood Cells 5-10 SEEN /hpf (0-5)
[2024-05-04 13:34] VITALS: BP 134/62; PULSE 75; RESP 24; TEMP 36.4; O2SAT 94
[2024-05-05 14:18] LABS: Pathologist Review Reviewed
== END 2024-05-04 13:44 | disposition home or self-care (01) ==
PROVIDERS: Emergency Provider Emergency Medicine; PCP Family Medicine; Visit Provider Emergency Medicine
DX: D69.3 Immune thrombocytopenic purpura (principal); D46.9 Myelodysplastic syndrome, unspecified; I42.8 Other cardiomyopathies; R04.0 Epistaxis; I10 Essential (primary) hypertension; N39.0 Urinary tract infection, site not specified; D53.9 Nutritional anemia, unspecified; Z79.899 Other long term (current) drug therapy
CPT/HCPCS: 80053; 81001; 85025; 96374; 99284; P9612; A4216

== ENCOUNTER 2024-06-10 14:29 | Emergency (ER) | payer MEDICARE, MEDICAID, SELFPAY ==
[2024-06-10 14:32] VITALS: BP 129/104; PULSE 86; RESP 17; TEMP 30.3; O2SAT 96; BMI 46.8
--- NOTE | 2024-06-10 14:51 | EX.ED.DYSGE1 ---
HPI History of Present Illness Chief Complaint: Unresponsive [facility] Medical History Microcephaly Thyroid disease Bladder disease Easy bruising Seizures Non-smoker History of echocardiogram Hypertension Cardiology follow-up encounter Recurrent UTI (urinary tract infection) History of colon polyps Osteoporosis of lumbar spine Needle phobia Chronic sinusitis Thrombocytopenia Anemia Psoriasis of scalp Allergic rhinitis Left ventricular systolic dysfunction Hypothyroidism Nonischemic cardiomyopathy facial Erysipelas Seizure disorder Developmental disability Multinodular goiter LBBB (left bundle branch block) Hyperlipidemia Home Medications ?Medication ?Instructions ?Recorded ?Last Taken ?Type spironolactone 25 mg tablet 25 mg PO QDAY 25mg 11/15/17 05/04/24 History metoprolol succinate 25 mg 25 mg PO BID 11/17/18 05/04/24 History tablet,extended release 24 hr acetaminophen 325 mg capsule 650 mg PO BID PRN Fever 01/26/20 Unknown History (Tylenol) handicap placcard #1 ea 02/09/23 Unknown Rx cholecalciferol (vitamin D3) 50 50 mcg PO DAILY 07/23/23 05/04/24 History mcg (2,000 unit) capsule (D3-2000) levothyroxine 100 mcg tablet 100 mcg PO DAILY 02/16/24 05/04/24 History nitrofurantoin 1 cap PO DAILY 02/16/24 05/04/24 History monohydrate/macrocrystals 100 mg capsule levetiracetam 500 mg tablet 500 mg PO BID #120 tabs 05/02/24 05/04/24 Rx nitrofurantoin 100 mg PO Q12 #10 CAPSULES 05/04/24 Unknown Rx monohydrate/macrocrystals 100 mg capsule ramipril 2.5 mg capsule 2.5 mg PO DAILY 05/04/24 05/04/24 History Allergy/AdvReac Type Severity Reaction Status Date / Time clindamycin Allergy Mild rash Verified 06/10/24 14:30 Family History Father TIA (transient ischemic attack) Colon cancer Mother Cancer brain Surgical History History of nasal surgery Hx of colonoscopy Hx of nasal polypectomy History of left heart catheterization (11/2007) History of foot surgery History of thyroidectomy Social History household members: other details: Residential living current occupational status: retired current occupation: Retired from [employer] Smoking Status: Never smoker alcohol intake: never substance use type: does not use additional social history: Has Legal Guardian and Provider EXAM Physical Exam Const Vital Signs: 06/10/24 14:30 06/10/24 14:32 06/10/24 14:55 Temperature 86.5 F L 95.9 F L Temperature Source Temporal Core Pulse Rate 86 86 Respiratory Rate 17 21 H Respiratory Pattern Normal Blood Pressure 129/104 H 70/26 L Blood Pressure Mean 112 40 Pulse Ox 96 94 Oxygen Delivery Method Room Air Room Air MDM MDM MDM Narrative Medical decision making narrative: HISTORY OF PRESENT ILLNESS: 73 F here with concern for being unresponsive. Per the patient's brother and skilled nursing was concerned as he cannot obtain an adequate pulse oximeter reading they noted the patient was less responsive than usual. She sent into the ED for further care. The patient was altered does not provide a reliable history. Per the patient's brother noted patient is DNR-CC. Her goals of care are for comfort and not for cure. He states he does not want heroic measures taken or any invasive interventions take any would like for her to continue with her current hospice program. He does not think the patient's snf can adequately care for her at end-of-life. His goal is to get her into an inpatient hospice unit. REVIEW OF SYSTEMS: Unable to obtain reliable review of system secondary to patient's change in mental status. PHYSICAL EXAM: Nursing triage notes reviewed, Vital signs reviewed Constitutional: please see mdm HENT: Dry oral mucosa Eyes: Pupils are reactive Neck: No JVD Lungs: Coarse breath sounds Heart: Regular rate and rhythm Abdomen: Soft no apparent tenderness. No abdominal masses, no auscultated abdominal bruit : Normal-appearing genitalia Extremities: No edema, extremities are cool to touch Neuro: Alert, the patient was not oriented to person place or time, she appeared to move all 4 extremities Skin: Pale MEDICAL DECISION MAKING: Chief Complaint: Unresponsive External records reviewed: Reviewed prior labs, ED visits Factors affecting care: MDS, hyperlipidemia, pancytopenia Social determinants of health: snf resident History obtained from others: EMS, brother Consults: Social work, hospice MDM Narrative: Patient was initially hypothermic otherwise afebrile and nontoxic-appearing saturating 96% on room air. Her mental status was concerning. During ED course he became hypotensive. Given her DNR-CC status I pursed a less is more and comfort over cure strategy in deference to her wishes. The patients brother noted she did not want heroic measures taken. He notes she did not want any invasive procedures done. He noted s he wanted to continue with hospice. We attempted to place an IV and give the patient IV fluids however she was a very difficult stick And as such we did not resuscitate the patient with IVF. We encouraged PO fluids. I considered placing a central line for better IV access however this is against the patient's wishes and goals of care remaining DNR-CC with no invasive procedures. This was discussed with the patient's family who agreed my approach to care was consistent with the patient's wishes. We were able to get in touch with the patient's hospice provider via social work. [facility] hospice was able to arrange inpatient hospice care. Family updated. Patient was transferred in guarded condition for inpatient hospice. The patient and/or family, caregivers express understanding. The patient and/or family, caregivers agrees with the plan. Shared decision making: I will have a discussion with the patient and or visitors regarding risk/benefits of further testing or admission. They will be made aware of of the risk/benefits inherent in this decision they will be given the opportunity to voice understanding. Total critical care time today provided was at least 0 minutes. This excludes separately billable procedures. Critical care time (if documented) is secondary to the patient having high probability of clinically significant/life threatening deterioration in the patient's condition which required my urgent intervention. Impression: 1. Altered mental status 2. Encounter for inpatient hospice initiation 3. Hypotension Dispo: transfer to inpatient hospice This note was generated with [employer] dictation software. It may contain incorrect words, spelling, and punctuation that were not noted in review of the chart prior to signing. Discharge Plan Triage Chief Complaint: Unresponsive ED Provider: Evgeny Lara Dx/Rx/DC Orders Prescriptions: No Action spironolactone 25 mg tablet 25 mg PO QDAY metoprolol succinate 25 mg tablet extended release 24 hr 25 mg PO BID acetaminophen [Tylenol] 325 mg capsule 650 mg PO BID PRN (Reason: Fever) (DME) handicap placcard See Rx Instructions .Route .MEDSUPPLY Qty: 1 0RF Rx Instructions: Dx: debility Exp: 01/2028 cholecalciferol (vitamin D3) [D3-1999] 50 mcg (2,000 unit) capsule 50 mcg PO DAILY levetiracetam 500 mg Tablet 500 mg PO BID Qty: 120 0RF ramipril 2.5 mg capsule 2.5 mg PO DAILY nitrofurantoin monohyd/m-cryst 100 mg capsule 100 mg PO Q12 Qty: 10 0RF levothyroxine 100 mcg tablet 100 mcg PO DAILY nitrofurantoin monohyd/m-cryst 100 mg capsule 1 cap PO DAILY Primary Care Provider: Everett Ruelas Referrals: Everett Ruelas DO [Primary Care Provider] - Print Language: Turkmen Disposition Disposition: Hospice in Medical Facility Discharge Location: [facility] Discharge Date/Time: 06/10/24 17:56
[2024-06-10 14:55] VITALS: BP 70/26; PULSE 86; RESP 21; TEMP 35.5; O2SAT 94
--- NOTE | 2024-06-10 15:20 | ED.RN ---
per verbal order of Dr. Lara pt does not need vital signs taken. pt is DNR-CC and we are only doing comfort measures at this point
== END 2024-06-10 17:56 | disposition hospice, inpatient (51) ==
PROVIDERS: Emergency Provider Emergency Medicine; PCP Family Medicine; Visit Provider Emergency Medicine
DX: R41.82 Altered mental status, unspecified (principal); I95.9 Hypotension, unspecified; Z66 Do not resuscitate
CPT/HCPCS: 99285